=== PATIENT | male | born 1945 | race Caucasian/White ===

== ENCOUNTER 2018-09-06 21:37 | Emergency (ER) | payer MEDICARE, SELFPAY ==
[2018-09-06 21:37] VITALS: BP 157/97; PULSE 92; RESP 16; TEMP 36.6; O2SAT 99; BMI 25.1
--- NOTE | 2018-09-06 22:23 | ED.VISSUMM ---
- ER Visit Summary Date of Service: 09/06/18 Chief Complaint: Epistaxis History of Present Illness: The patient is a 73 M who presents with epistaxis that began tonight. Patient states he noted some bleeding in his posterior nasopharynx and then from his right nares. Patient states he applied pressure to his right nares and the bleeding was coming out of his left nares. Patient states the bleeding had persisted for approximately 15 to 20 minutes. Currently, patient states the bleeding has stopped. Patient states that blood pressure at home was 160/88. Patient denies any fevers or chills. Patient denies any nausea or vomiting. Patient denies any trauma or injury. Physical Examination: Vital signs are stable. Patient is afebrile. Patient is in no acute distress. Oral mucosa is pink and moist. There is some dried blood noted in the oropharynx. Nasal mucosa is pink and moist. There is dried blood noted on the anterior nasal septum bilaterally. There is no septal hematoma or septal deviation. Neck is supple. Trachea is midline. There is no JVD noted. Heart was regular rate and rhythm. Lungs are clear and equal bilaterally. Cranial nerves II through XII are intact. There are no focal motor or sensory deficits noted. Test Results: CBC was obtained and was within normal limits Emergency Department Course and Treatment: Bacitracin ointment was applied to bilateral nares. Patient was observed here in the emergency department for over 2 hours. Patient had no further episodes of epistaxis here in the emergency department. Patient was instructed to follow-up with his primary care physician in 5 to 7 days. Patient was instructed to apply pressure to his nose if epistaxis were to return. Patient understood and was agreeable with the plan. All questions were answered. Disposition: Discharge home Impression: Epistaxis This note was generated with [employer] dictation software. It may contain incorrect words, spelling, and punctuation that were not noted in review of the chart prior to signing ED Disposition - Plan for ED Patient: Disposition: Home or Assisted Living Diagnosis: Epistaxis Instructions: Nosebleed Referrals: Alexandru Cardoso MD [Primary Care Provider] - 3-5 Days
[2018-09-06 22:56] LABS: Absolute Lymphocyte Count 2.32 X10^3/ul (0.83-4.51); Absolute Neutrophil Count 4.5 X10^3/uL (2.0-7.7); Basophil# 0.03 X10^3/uL; Basophil% 0.4 % (0-1); Eosinophil# 0.23 X10^3/uL; Eosinophils% 2.9 % (0-5); Hematocrit 42.9 % (40-54); Hemoglobin 15.6 g/dl (13.0-16.5); Lymphocyte # 2.32 X10^3/ul (4.0); Lymphocyte % 29.1 % (19-41); Mean Corp Hgb Conc 36.4 g/gl (32-36); Mean Corpuscular Volume 85.1 fL (80-94); Mean Platelet Vol. 9.6 fl (6.2-12.0); Monocyte# 0.88 X10^3/uL; Neutrophil # 4.49 X10^3/uL (2.7-7.7); Neutrophil % 56.3 % (47-70); Platelet Count 314 K/mm3 (150-450); RBC Distribution Width CV 13.8 % (11.6-14.6); RBC Distribution Width SD 42.7 fl (35.1-43.9); Red Blood Count 5.04 M/mm3 (4.6-6.2)
[2018-09-06 22:58] LABS: POSITIVE COUNT NO; POSITIVE DIFFERENTIAL NO; POSITIVE MORPHOLOGY NO
[2018-09-07 00:17] VITALS: BP 122/69; PULSE 58; RESP 16; O2SAT 97
[2018-09-07] MEDS: BACITRACIN 15 GM Tube 1 APPLIC TOPICAL (00:25)
== END 2018-09-07 00:25 | disposition home or self-care (01) ==
PROVIDERS: Emergency Provider Emergency Medicine; Family Provider Family Medicine; PCP Family Medicine
DX: R04.0 Epistaxis (principal); I10 Essential (primary) hypertension; Z79.82 Long term (current) use of aspirin; Z79.899 Other long term (current) drug therapy
CPT/HCPCS: 85025; 99282; A4216

== ENCOUNTER 2019-04-18 20:10 | Emergency (ER) | payer MEDICARE, SELFPAY ==
[2019-04-18 20:11] VITALS: BP 201/93; PULSE 73; RESP 16; TEMP 37.2; O2SAT 97; BMI 25.1
[2019-04-18 20:38] VITALS: BP 191/81
--- NOTE | 2019-04-18 20:55 | CT_ITS ---
HISTORY: CASTILLO X 3 WEEKS, ELEVATED BP X WEEKS, NO MEDS TAKEN AT THIS TIME ADDITIONAL HISTORY: None provided. COMPARISON: None TECHNIQUE: Axial, coronal and sagittal CT images were obtained of the brain without intravenous contrast. Number of images including paperwork: 250. A radiation dose optimization technique was used for this scan. FINDINGS: BRAIN PARENCHYMA: No acute hemorrhage or mass. No definite acute infarct; MRI more sensitive. White matter hypodensity is nonspecific but most commonly seen with chronic ischemic changes. Generalized atrophy. EXTRA-AXIAL SPACES: No acute hemorrhage. VENTRICULAR SYSTEM: No hydrocephalus. PARANASAL SINUSES AND MASTOIDS: No air-fluid level in the imaged extent. ORBITS: Unremarkable imaged extent. SKELETON AND SOFT TISSUES: Calvarium intact. ASPECTS score: Not applicable. CT/Brain/Head without Contrast IMPRESSION: No acute intracranial abnormality. Chronic involutional and white matter changes. Individualized dose optimization techniques were used for this CT. at 2220 Reported and signed by: Nilsa Richardson MD Electronically Signed: Nilsa Richardson MD at 22:20 EST Tel , Service support ,
--- NOTE | 2019-04-18 20:55 | EKG12_ITS ---
Test Reason : HTN Blood Pressure : / mmHG Vent. Rate : 073 BPM Atrial Rate : 073 BPM P-R Int : 208 ms QRS Dur : 088 ms QT Int : 378 ms P-R-T Axes : 032 020 163 degrees QTc Int : 416 ms Normal sinus rhythm ST & T wave abnormality, consider lateral ischemia Abnormal ECG Confirmed by SANDRA PÉREZ, RUPINDER ([id number]), graphic editor YORDY GREEN ([id number]) on 04/20/2019 9:45:03 AM Referred By: SHAI Confirmed By:RUPINDER FLORES MD
--- NOTE | 2019-04-18 20:55 | RAD_ITS ---
HISTORY: HYPERTENSIONHEADACHE x3 WEEKS EXAM: XR Chest 1 View COMPARISON: June 01, 2012 FINDINGS: LINES/DEVICES: None. LUNGS: There are chronic interstitial changes. No pneumothorax. No consolidation or effusion. MEDIASTINUM AND CARDIOVASCULAR STRUCTURES: Cardiac silhouette not enlarged. Central airways and mediastinal contour are unremarkable. Athersclerotic plaque within the aortic arch. BONES AND SOFT TISSUES: Thoracic spondylosis. RAD/Chest 1 View (Portable) IMPRESSION: Chronic interestitial changes. No radiographic evidence of acute cardiopulmonary disease. at 2149 Reported and signed by: Wild Puente MD Electronically Signed: Wild Puente MD at 21:48 EST Tel , Service support ,
[2019-04-18 21:25] LABS: Absolute Neutrophil Count 4.3 X10^3/uL (2.0-7.7); Basophil# 0.06 X10^3/uL; Basophil% 0.8 % (0-1); Eosinophils% 2.8 % (0-5); Hematocrit 42.2 % (40-54); Hemoglobin 14.6 g/dL (13.0-16.5); Lymphocyte % 26.3 % (19-41); Mean Corp Hgb Conc 34.6 g/dL (32-36); Mean Corpuscular Volume 89.6 fL (80-94); Mean Platelet Vol. 9.8 fl (6.2-12.0); Monocyte# 0.77 X10^3/uL; Monocyte% 10.7 % (0-10); NRBC Flagged by Analyzer 0 % (0-5); Neutrophil # 4.28 X10^3/uL (2.7-7.7); Neutrophil % 59.1 % (47-70); Platelet Count 255 K/mm3 (150-450); RBC Distribution Width CV 12.6 % (11.6-14.6); RBC Distribution Width SD 41.4 fl (35.1-43.9); Red Blood Count 4.71 M/mm3 (4.6-6.2); White Blood Count 7.2 K/mm3 (4.4-11.0)
[2019-04-18 21:36] LABS: Anion Gap 4 (5-15); BUN 21 mg/dL (7-18); BUN/Creat Ratio 15.2 RATIO (10-20); Calcium,Total 9.6 mg/dL (8.5-10.1); Chloride 110 mmol/L (98-107); Creatinine, Serum 1.38 mg/dL (0.70-1.30); EST Glomerular Filtration Rate 53 mL/min (>60); Est Glom Filt Rate - Afr Amer 65 mL/min (>60); Estimated Creatinine Clearance 46.25 ml/min; Glucose 145 mg/dL (74-106); Sodium Level 144 mmol/L (136-145)
[2019-04-18 22:30] VITALS: BP 184/87; PULSE 57; RESP 12; O2SAT 95
[2019-04-18 22:49] VITALS: BP 184/87; PULSE 57; RESP 15; O2SAT 17
--- NOTE | 2019-04-18 22:49 | ED.VISSUMM ---
- ER Visit Summary Date of Service: 04/18/19 Chief Complaint: Headache History of Present Illness: The patient is a 74 M with a headache for several days. Diffuse pain. He noticed his blood pressure was 236/88 today. He recently stopped his blood pressure medication under the care of his doctor because he was told that it was hurting his kidneys. He has a history of hypertension, hyperlipidemia, and BPH. Physical Examination: Blood pressure is 191/81. Otherwise vitals normal. Afebrile. Alert and oriented. No acute distress. Cranial nerves grossly intact. No focal or lateralizing neurologic abnormalities grossly. Heart regular. Lungs clear. Abdomen soft. Skin normal. Test Results: EKG showed sinus rhythm at a rate of [address] and T wave changes. No sign of acute ischemia or infarction pattern. CBC unremarkable. BUN 21 and creatinine 1.38. Troponin normal. Chest x-ray normal. CT brain showed chronic changes. Emergency Department Course and Treatment: Repeat blood pressure was 184 systolic. Patient received a dose of Catapres 0.1 mg here. Will prescribe HCTZ for home daily. Follow-up with primary care for recheck. Return right away for any new or worsening symptoms. Patient was educated about stroke and other red flag features. Treatment Plan: As above Disposition: Discharge Impression: 1. Hypertension This note was generated with [employer] dictation software. It may contain incorrect words, spelling, and punctuation that were not noted in review of the chart prior to signing ED Disposition - Plan for ED Patient: Referrals: Alexandru Cardoso MD [Primary Care Provider] -
--- NOTE | 2019-04-18 22:53 | ED.DEP ---
ED Disposition - Plan for ED Patient: Instructions: HYPERTENSION, Established, Out of Control Prescriptions: Hydrochlorothiazide [Hctz] 25 mg PO DAILY #30 tab Prescription Printed Referrals: Alexandru Cardoso MD [Primary Care Provider] -
[2019-04-18] MEDS: cloNIDine HCl 0.1 MG Tablet PO (23:02)
== END 2019-04-18 23:00 | disposition home or self-care (01) ==
LOC: ED 21:19
PROVIDERS: Emergency Provider Emergency Medicine; Family Provider Family Medicine; PCP Family Medicine
DX: I10 Essential (primary) hypertension (principal); E78.5 Hyperlipidemia, unspecified; N40.0 Benign prostatic hyperplasia without lower urinary tract symptoms
CPT/HCPCS: 70450; 71045; 80048; 84484; 85025; 93005; 99285; A4216

== ENCOUNTER 2019-10-18 22:00 | Emergency (ER) | payer MEDICARE, SELFPAY ==
[2019-10-18 22:01] VITALS: BP 146/64; PULSE 54; RESP 16; TEMP 36.6; O2SAT 97; BMI 25.7
--- NOTE | 2019-10-18 22:40 | CT_ITS ---
STUDY: CT BRAIN WITHOUT CONTRAST REASON FOR EXAM: Male, 74 years old. Hit head on tractor with small laceration to top of head on the right. Questionable loss of consciousness. RADIATION DOSAGE (If Supplied By Facility): CTDIvol = ( 44.99 ) mGy, DLP = ( 796.11 ) mGycm TECHNIQUE: Transaxial CT imaging of the brain was performed without administration of intravenous contrast material. Individualized dose optimization techniques were used for this CT. COMPARISON: April 18, 2019. February 17, 2010. FINDINGS: Barely perceptible right frontal scalp swelling. Incidental subcentimeter left parietal skull exostosis unchanged since January 2010. Normal size ventricles and extra-axial spaces for the patient''s age. Normal white matter tracts of the cerebral hemispheres. Normal basal ganglia and thalami. Normal brainstem. Normal cerebellum. There is no intracranial hemorrhage. There are no findings of an acute ischemic infarction. Normal visualized paranasal sinuses. CT/Brain/Head without Contrast IMPRESSION: No acute intracranial abnormality. Electronically Signed: James Villela MD at 23:16 EDT , Service support ,
--- NOTE | 2019-10-18 22:41 | ED.VIS.INJ ---
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 He was briefly dazed but had no loss of consciousness. He has had a pretty significant headache ever since. He has taken nothing and wants nothing for that but wants to make sure he does not have any type of life-threatening injury. He also sustained a laceration that bled a lot, but bleeding has been well controlled with pressure. He has a bandage on it. Last tetanus was within the last 10 years. Denies any other injury. Denies neck or back pain. Denies neurologic symptoms in his periphery, no vision changes, no nausea or vomiting. He takes no anticoagulants. - Past Medical History (1) Hypertension Status: Chronic (2) Hyperlipidemia Status: Chronic Past Medical History - Allergies and Home Meds Allergies/Adverse Reactions: Allergies No Known Allergies Allergy (Verified 04/18/19 20:11) Primary Care Physician: Alexandru Cardoso MD [Primary Care Provider] - Lives: With Family Smoking Status: Never smoker Review of Systems General: Denies: Chills, Fever, Sweats Eyes: Denies: Visual changes - bilaterally, Diplopia ENT: Denies: Rhinorrhea, Sore throat Cardiovascular: Denies: Chest pain, Palpitations Respiratory: Denies: Dyspnea, Cough, Dyspnea on exertion Gastrointestinal: Denies: Abdominal pain, Nausea, Vomiting, Diarrhea, Melena, Hematochezia Genitourinary: Denies: Dysuria, Hematuria, Frequency Musculoskeletal: Denies: Back pain, Extremity Pain Skin: Reports: Wounds. Denies: Rash Neurological: Reports: Headache. Denies: Weakness, Numbness Physical Exam Vital Signs/Narrative: Vital Signs Temp Pulse Resp BP Pulse Ox 10/18/19 22:01 97.8 F 54 L 16 146/64 H 97 Inital Vital Signs reviewed: Yes General: Well nourished, Well developed Head: Trauma, Tenderness - Right high parietal scalp. No crepitance or depression. Tender at the area of the laceration. Eyes: Perrl, EOMI ENT: TM's clear, No hemotympanum or drainage, No trauma. Negative for: Nasal trauma Neck: Nontender, Full ROM Respiratory: No distress, Chest nontender Back: Nontender. Negative for: Spinal Tenderness Extremeties: Atraumatic x4. Full range of motion throughout. Skin: Normal color, No rash, Trauma - 1 cm curvilinear partial-thickness laceration to the right high parietal scalp. No active bleeding. Neurological: Alert, Oriented x3, Cranial nerves II-XII grossly intact, Normal Strength, Normal Sensation, Normal Gait Psychological: Normal affect, Normal Mood - Glascow Coma Scale Eye Opening: Spontaneous Motor: Obeys Commands Verbal: Oriented Coma Scale Total: 15 Diagnostic/Tx/Re-eval Clinical Impression(s) from Imaging Studies Brain CT 10/18/19 22:40 IMPRESSION: No acute intracranial abnormality. Electronically Signed: James Villela MD at 23:16 EDT , Service support , - Medical Decision Making Patient was concerned more about intracranial injury than he was his laceration. CT was performed and negative. His laceration is partial-thickness and fairly small, with minimal bleeding, I think it can be managed without suturing, but I offered suturing to the patient. He states he does not want that. Therefore we cleansed it and placed a couple of Steri-Strips across it since it was away from his hairline a little. His tetanus is within the last 10 years, I do not think that needs to be updated as this is not a high risk wound, and he can follow-up as needed. He is comfortable with this plan. ED Disposition - Plan for ED Patient: Disposition: Home or Assisted Living Diagnosis: Closed head injury without loss of consciousness, Laceration of scalp Instructions: ED Head Injury Adult, ED Laceration Small or Superficial Not Stitched Referrals: Alexandru Cardoso MD [Primary Care Provider] - As Needed
[2019-10-18 23:52] VITALS: BP 120/65; PULSE 70; RESP 18; O2SAT 98
== END 2019-10-18 23:53 | disposition home or self-care (01) ==
PROVIDERS: Emergency Provider Emergency Medicine; PCP Family Medicine
DX: S01.01XA Laceration without foreign body of scalp, initial encounter (principal); W22.8XXA Striking against or struck by other objects, initial encounter; Y93.H2 Activity, gardening and landscaping; Y92.017 Garden or yard in single-family (private) house as the place of occurrence of the external cause; I10 Essential (primary) hypertension; E78.5 Hyperlipidemia, unspecified
CPT/HCPCS: 70450; 99282

== ENCOUNTER 2020-09-29 18:53 | Emergency (ER) | payer MEDICARE, SELFPAY ==
[2020-09-29 18:53] VITALS: BP 145/79; PULSE 61; RESP 18; TEMP 36.6; O2SAT 99; BMI 26.2
--- NOTE | 2020-09-29 19:00 | RAD_ITS ---
STUDY: X-RAY - UNILATERAL RIBS ( RIGHT ) WITH CHEST REASON FOR EXAM: Male, 75 years old. pain trauma -- er waiting room TECHNIQUE - RIBS: 4 view(s) of the ribs. TECHNIQUE - CHEST: 1 view COMPARISON: Prior chest radiograph of 06/01/2012 FINDINGS - RIBS: Normal visualized ribs without a demonstrated fracture. FINDINGS - CHEST: Negative for pneumothorax. The lungs are clear and expanded. There is no demonstrated pleural abnormality. Normal size heart. Normal mediastinum and russell. Normal visualized pulmonary arteries. There is atherosclerotic tortuosity of the aortic arch and descending thoracic aorta. There are diffuse degenerative changes of the visualized thoracic spine. Normal clavicles and scapulae. RAD/Ribs Uni Min 3V w/PA Chest IMPRESSION: RIBS: Negative for acute rib fracture. CHEST: No acute cardiopulmonary findings or changes. Electronically Signed: Janell Zhu MD at 20:11 EDT , Service support ,
--- NOTE | 2020-09-29 19:55 | CT_ITS ---
STUDY: CT ABDOMEN AND PELVIS WITH CONTRAST REASON FOR EXAM: Male, 75 years old. RIGHT POSTERIOR TRAUMA -- IV PO Contrast/pain RADIATION DOSAGE (If Supplied By Facility): CTDIvol = ( 16.21 ) mGy, DLP = ( 621.06 ) mGycm TECHNIQUE: Transaxial images were obtained from the dome of the diaphragm to the symphysis pubis without oral contrast. IV 100mL Isovue-370 was administered. Sagittal and coronal images were reconstructed. Individualized dose optimization techniques were used for this CT. COMPARISON: None. FINDINGS: The visualized lung bases are unremarkable. The visualized portions of the heart are within normal limits. Multiple simple hepatic cysts. The largest is near the gallbladder fossa and measures 2.8 x 2 cm. Otherwise normal liver. Normal gallbladder and extrahepatic biliary system. Normal spleen. Normal pancreas. Normal bilateral adrenal glands. Normal right kidney. Subcentimeter cysts of the left kidney. Otherwise normal left kidney. Normal visualized stomach. Normal small intestine. Mild diverticulosis of the colon without evidence of acute diverticulitis. Otherwise normal colon. The appendix is visualized and appears normal. There is diffuse atherosclerotic calcification of the abdominal aorta, without a demonstrated aneurysm. Normal inferior vena cava. Normal retroperitoneum. Nondistended urinary bladder. Mild elevation of the bladder base by prostate enlargement. Bilateral fatty inguinal hernias, right larger than left. Mild degenerative changes of the lumbar spine. Negative for acute fracture of the lumbar spine, sacrum, pelvis or proximal femora. CT/Abdomen/Pelvis W IV Cont ONLY IMPRESSION: No acute trauma related findings. Negative for fracture of the lumbar spine, sacrum, pelvis or proximal femora. Unremarkable spleen and liver and pancreas with a nondistended gallbladder. Simple hepatic and renal cysts. No additional imaging recommendations. No acute renal findings. Unremarkable nondistended urinary bladder. Mild elevation of the bladder base by prostate enlargement. No acute bowel findings. Diverticulosis is present without acute diverticulitis. A normal appendix is identified. Mild to moderate atherosclerotic plaque of the aorta without evidence of aneurysm or dissection. Electronically Signed: Janell M. [place], MD at 22:12 EDT , Service support ,
[2020-09-29] MEDS: 0.9% Normal Saline 1,000 ML 1000 ML IV (20:06)
[2020-09-29 20:11] VITALS: PULSE 55; RESP 16; O2SAT 98
[2020-09-29 20:38] LABS: Anion Gap 4 (5-15); BUN 20 mg/dL (7-18); BUN/Creat Ratio 16.1 RATIO (10-20); Chloride 105 mmol/L (98-107); Creatinine, Serum 1.24 mg/dL (0.70-1.30); EST Glomerular Filtration Rate 60 mL/min (>60); Est Glom Filt Rate - Afr Amer 73 mL/min (>60); Estimated Creatinine Clearance 49.03 ml/min; Glucose 108 mg/dL (74-106); Potassium 3.5 mmol/L (3.5-5.1); Sodium Level 140 mmol/L (136-145)
--- NOTE | 2020-09-29 21:46 | EDS_ITS ---
HPI History of Present Illness Chief Complaint: Other, Pain/Inj Informant: patient and family Narrative Narrative: 75-year-old male states that earlier today a horse pushed him up against the stall. He notes injury to the right posterior lower ribs. He went to urgent care and they were concerned about multiple rib fractures. They sent him to emergency department. He states that they did check his urine which did not show any hematuria. Patient denies any cough or shortness of breath. No hemoptysis. Painful range of motion. He does not wish to have any pain medication even Tylenol. [facility] Medical History High cholesterol HTN (hypertension) Home Medications finasteride 5 mg PO DAILY 04/18/19 [History Last Taken Unknown] losartan 25 mg PO DAILY 10/18/19 [History Last Taken Unknown] nifedipine 60 mg PO DAILY 09/29/20 [History Last Taken Unknown] pravastatin 40 mg PO QHS 09/29/20 [History Last Taken Unknown] Allergy/AdvReac Type Severity Reaction Status Date / Time No Known Allergies Allergy Verified 09/29/20 18:55 Social History (Updated 09/29/20 @ 21:[address] Jay Eldridge DO) Smoking Status: Never smoker substance use type: does not use ROS ROS ED Constitutional Constitutional ED: Denies chills or weight loss Eyes Eyes: Denies change in vision or diplopia ENT ENT ED: Denies ear pain, rhinorrhea or sore throat Cardiovascular Cardiovascular: Denies chest pain, orthopnea, palpitations or racing heartbeat Respiratory/Chest Respiratory/Chest: Reports other Details: Right posterior lower rib pain ; Denies cough, dyspnea or orthopnea Gastrointestinal Gastrointestinal: Denies abdominal pain, diarrhea, nausea or vomiting Genitourinary Genitourinary ED: Denies dysuria, hematuria or urinary frequency Musculoskeletal Musculoskeletal: Denies arthralgias or myalgias Integumentary Denies abscess or rash Neurologic Neurologic: Denies headache(s) or weakness Psychiatric Psychiatric: Denies anxiety, depression, suicidal ideation or suicidal thoughts Endocrine Endocrinology: Denies polydipsia, polyphagia or polyuria Allergic/Immunologic Allergic/Immunologic ED: Denies mouth swelling, tongue swelling or urticaria EXAM Physical Exam Const Vital Signs: 09/29/20 18:53 09/29/20 20:10 09/29/20 20:11 Temperature 97.9 F Temperature Source Temporal Pulse Rate 61 55 L Respiratory Rate 18 16 Respiratory Effort Normal Non-Labored Respiratory Pattern Normal Blood Pressure 145/79 H Blood Pressure Mean 101 Pulse Ox 99 98 Oxygen Delivery Method Room Air Room Air Positive well nourished and well developed General Appearance ED: well developed HEENT Reports normocephalic, head/scalp atraumatic and moist mucous membranes Eyes PERRL and EOMs intact bilaterally Neck no lymphadenopathy, supple and no JVD Chest Wall Chest Narrative: Patient has tenderness to palpation over the lower posterior right ribs. No palpable deformities. No crepitance. No ecchymosis seen. Resp normal respiratory effort and clear to auscultation bilaterally Cardio regular rate, regular rhythm and no murmurs GI normal to inspection, nondistended, normoactive bowel sounds and non-tender Palpation: soft Back/Spine no CVA tenderness and normal ROM Extremity normal to inspection General Extremety ED: Negative for edema General Extremity: Negative for edema Neuro oriented x3 and CN's II-XII intact bilaterally Sensorium / Orientation: alert Motor Exam: strength 5/5 throughout Psych mental status grossly normal Mood & Affect: Negative for depressed or tearful Skin no rashes or lesions noted and no wounds MDM MDM MDM Narrative Medical decision making narrative: Rib series was ordered through nursing protocol. However given the location of his pain overlying the right kidney area I felt it prudent that we CT it. BMP was obtained to evaluate his creatinine with a history of stage III kidney disease. This was normal. Therefore CT of the abdomen pelvis with IV contrast was obtained. This does not demonstrate any liver or renal pathology. No obvious rib fractures were seen. No pneumothorax or hemothorax seen. Patient was discharged home with supportive care return if worsening or concerns Lab Data Attestation: I reviewed the patient's lab results. Labs: Laboratory Results - last 24 hr 09/29/20 20:05 Sodium 140 Potassium 3.5 Chloride 105 Carbon Dioxide 31.0 Anion Gap 4 L BUN 20 H Creatinine 1.24 Estim Creat Clear Calc 49.03 Est GFR (MDRD) Af Amer 73 Est GFR (MDRD) Non-Af 60 BUN/Creatinine Ratio 16.1 Glucose 108 H Calcium 10.0 Radiography Diagnostic Testing: Radiology Impression Ribs w/Chest X-Ray 09/29/20 19:00 IMPRESSION: RIBS: Negative for acute rib fracture. CHEST: No acute cardiopulmonary findings or changes. Electronically Signed: Janell Zhu MD at 20:11 EDT , Service support , Abdomen/Pelvis CT 09/29/20 19:55 IMPRESSION: No acute trauma related findings. Negative for fracture of the lumbar spine, sacrum, pelvis or proximal femora. Unremarkable spleen and liver and pancreas with a nondistended gallbladder. Simple hepatic and renal cysts. No additional imaging recommendations. No acute renal findings. Unremarkable nondistended urinary bladder. Mild elevation of the bladder base by prostate enlargement. No acute bowel findings. Diverticulosis is present without acute diverticulitis. A normal appendix is identified. Mild to moderate atherosclerotic plaque of the aorta without evidence of aneurysm or dissection. Electronically Signed: Janell Zhu MD at 22:12 EDT , Service support , Discharge Plan Triage Chief Complaint: Other, Pain/Inj ED Provider: Jay Eldridge Dx/Rx/DC Orders Clinical Impression: Contusion of rib on right side Instructions: ED Contusion, Rib Prescriptions: No Action finasteride 5 MG tablet 5 mg PO DAILY RF: 0 losartan 25 MG tablet 25 mg PO DAILY RF: 0 pravastatin 40 mg Tablet 40 mg PO QHS RF: 0 nifedipine 60 mg Tablet Extended Release 60 mg PO DAILY RF: 0 Primary Care Provider: Alexandru Cardoso Referrals: Alexandru Cardoso MD [Primary Care Provider] - As Needed Disposition Disposition: Home, self care
== END 2020-09-29 22:22 | disposition home or self-care (01) ==
PROVIDERS: Emergency Provider Emergency Medicine; PCP Family Medicine
DX: S20.211A Contusion of right front wall of thorax, initial encounter (principal); I10 Essential (primary) hypertension; E78.00 Pure hypercholesterolemia, unspecified; Z79.899 Other long term (current) drug therapy; W55.12XA Struck by horse, initial encounter
CPT/HCPCS: 71101; 74177; 80048; 96360; 96361; 99283; J7030; Q9967; A4216

== ENCOUNTER 2021-10-26 10:55 | Emergency (ER) | payer MEDICARE, SELFPAY ==
[2021-10-26 10:56] VITALS: BP 137/66; PULSE 67; RESP 16; TEMP 37.1; O2SAT 98; BMI 25.8
--- NOTE | 2021-10-26 12:09 | CT_ITS ---
STUDY: CT CHEST, ABDOMEN T PELVIS WITH CONTRAST REASON FOR EXAM: Male, 76 years old. Back pain. Patient stepped on by a horse. RADIATION DOSAGE (If Supplied By Facility): CTDIvol = ( 15.06 ) mGy, DLP = ( 1404.07 ) mGycm TECHNIQUE: Transaxial imaging was performed following intravenous administration of Oral and amp; IV and amp; 100mL Isovue-300. Individualized dose optimization techniques were used for this CT. COMPARISON: No relevant priors. FINDINGS: CHEST Mild degree of increased linear markings at the lung bases suggestive of a linear atelectasis. There is no demonstrated pleural abnormality. There are calcifications of the coronary arteries. Normal mediastinum. Normal hilar regions. Normal unenhanced pulmonary arteries. There is atherosclerotic calcification of the aortic arch. There are multi-level degenerative changes of the thoracic spine. 1 cm cyst in the anterior aspect of the left lobe of the liver. 1.5 cm cyst in the anterior medial portion of the right lobe of the liver. ABDOMEN The visualized lung bases are unremarkable. The visualized portions of the heart are within normal limits. Normal liver. Normal gallbladder and extrahepatic biliary system. Normal spleen. Normal pancreas. Normal bilateral adrenal glands. Normal right kidney. 1 cm cyst in the lower pole of the left kidney Normal visualized stomach. Normal small intestine. Normal colon. The appendix is visualized and appears normal. There is scattered atherosclerotic calcification of the abdominal aorta, without a demonstrated aneurysm. Normal inferior vena cava. Normal retroperitoneum. Small bilateral nodular areas containing fat is more prominent on the right side. There are mild degenerative changes of the visualized lumbar spine. PELVIS Distended urinary bladder. The prostate measures 4.5 cm x 5.4 cm. There is no pelvic fluid. There is no pelvic lymphadenopathy or mass lesion. There is diffuse atherosclerotic calcification of the pelvic arteries. CT/CT Chest, Abd, Pel w/Contrast IMPRESSION: Prostatic enlargement. Distended urinary bladder. Small hepatic cysts. Electronically Signed: Justin Britt MD at 13:30 EDT ,
--- NOTE | 2021-10-26 12:11 | EDS_ITS ---
HPI <JAMIE Gamez - Last Filed: 10/26/21 13:56> History of Present Illness Chief Complaint: Back Narrative Narrative: 76-year-old male with history of hypertension hyperlipidemia presents to the emergency department with complaints of back pain, left-sided rib pain, abdominal pain after being trampled on by a horse. 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 This happened 2 days ago, patient denies any head or neck injury. Patient has multiple abrasions to his forearms. Patient does have worsening pain to his lower back, left posterior ribs, intermittent abdominal discomfort. Patient is concerned that he hurt his insides. Denies any LOC. Patient is currently not on any blood thinning medicine. PFSH <JAMIE Gamez - Last Filed: 10/26/21 13:56> [facility] Medical History (Updated 10/26/21 @ 13:54 by JAMIE Gamez) Chronic kidney disease, stage 3 High cholesterol HTN (hypertension) Osteoarthritis Parkinsonian features Home Medications finasteride 5 mg tablet 5 mg PO DAILY 04/18/19 [History Last Taken Unknown] losartan 25 mg tablet 25 mg PO DAILY 10/18/19 [History Last Taken Unknown] nifedipine 60 mg tablet,extended release 60 mg PO DAILY 09/29/20 [History Last Taken Unknown] pravastatin 40 mg tablet 40 mg PO QHS 09/29/20 [History Last Taken Unknown] hydrocodone-acetaminophen 5-325mg 5mg-325mg 1 tab PO Q6H PRN pain 3 days #10 tabs 10/26/21 [Rx Last Taken Unknown] Allergy/AdvReac Type Severity Reaction Status Date / Time No Known Allergies Allergy Verified 10/26/21 10:58 Surgical History (Updated 10/26/21 @ 11:10 by Richard Herbert RN) History of surgery of liver Social History (Updated 09/29/20 @ 21:[address] Jay Eldridge DO) Smoking Status: Never smoker substance use type: does not use ROS <JAMIE Gamez - Last Filed: 10/26/21 13:56> ROS ED ROS Narrative Constitutional: Negative for fever, chills, weight loss, weakness Eyes: Negative for vision loss, vision change, double vision ENT: Negative for any sore throat, ear pain, congestion Cardiovascular: Negative for any chest pain, tightness, palpitations Respiratory: Negative for any cough, sputum production, hemoptysis, dyspnea, dyspnea on exertion, orthopnea Gastrointestinal: Negative for any nausea, vomiting, diarrhea, constipation, blood in stool, blood in vomit. Positive for left-sided abdominal pain : Negative for any urinary frequency, dysuria, retention, blood in urine Muscle skeletal: Negative for any muscle joint pain, stiffness, myalgias, arthralgias, neck pain. Positive for lower back pain Neurological: Negative for any headache, syncope, numbness or tingling, dizziness Skin: Negative for any rashes, lumps, itching, lacerations. Multiple abrasions to forearms Psychiatric: Negative for any depression, anxiety, stress, suicidal ideation, homicidal ideation Hematologic: Negative for any easy bruising, excessive bruising, easy bleeding Allergies: Negative for any eczema, hives, rash EXAM <JAMIE Gamez - Last Filed: 10/26/21 13:56> Physical Exam Narrative Exam Narrative: Vital signs reviewed. Patient appears well, patient appears nontoxic. HEET: Head normocephalic atraumatic, TMs clear bilaterally. Posterior pharynx is clear, moist mucous membranes. Nares clear bilaterally. Pupils equal round reactive light, negative for any hematoma, septal hematoma Neck: Supple with no lymphadenopathy or tenderness. No signs of meningismus, negative jolt sign. Cardiac: Regular rate and rhythm no murmurs gallops or rubs, equal peripheral pulses bilaterally. Respiratory: Lungs clear to auscultation bilaterally. Left-sided chest wall tenderness on the lateral posterior aspect. Abdomen: Soft, nontender, nondistended. No abdominal bruit or pulsatile masses. No hepatosplenomegaly Extremities: No peripheral edema, no signs of gross trauma or deformity. Active full range of motion of all extremities. Abrasions to bilateral forearms Neuro: Cranial nerves II through XII intact, no focal neurological deficits. Skin: Clean dry and intact with no rash, purpura, petechiae, vesicles or pustules. Backs/flank: No CVA tenderness, no midline spinal tenderness, no deformity. Patient does have pain on palpation to the left lower lumbar spine as well as the left posterior ribs. Negative for any crepitus, ecchymosis. Psych: Normal mood and affect. No SI, HI or acute psychosis. Const Vital Signs: 10/26/21 10:56 Temperature 98.7 F Temperature Source Temporal Pulse Rate 67 Respiratory Rate 16 Blood Pressure 137/66 H Blood Pressure Mean 89 Pulse Ox 98 Oxygen Delivery Method Room Air Positive well nourished and well developed General Appearance ED: well developed <Dr. Reji Jeong MD - Last Filed: 10/26/21 15:36> Physical Exam Const Vital Signs: 10/26/21 10:56 Temperature 98.7 F Temperature Source Temporal Pulse Rate 67 Respiratory Rate 16 Blood Pressure 137/66 H Blood Pressure Mean 89 Pulse Ox 98 Oxygen Delivery Method Room Air MDM <JAMIE Gamez - Last Filed: 10/26/21 13:56> MDM Lab Data Labs: Laboratory Results - last 24 hr 10/26/21 10/26/21 12:20 12:20 WBC 11.1 H RBC 4.60 Hgb 14.5 Hct 41.3 MCV 89.8 MCH 31.5 MCHC 35.1 RDW Std Deviation 43.1 RDW Coeff of [place] 13.1 Plt Count 259 MPV 9.3 Immature Gran % (Auto) 0.400 Neut % (Auto) 73.3 H Lymph % (Auto) 14.0 L Frontier % (Auto) 11.7 H Eos % (Auto) 0.4 Baso % (Auto) 0.2 Absolute Neuts (auto) 8.2 H Absolute Lymphs (auto) 1.56 Nucleated RBC % 0 Sodium 138 Potassium 3.7 Chloride 106 Carbon Dioxide 29.0 Anion Gap 3 L BUN 17 Creatinine 1.14 Estim Creat Clear Calc 52.50 Est GFR (MDRD) Af Amer 80 Est GFR (MDRD) Non-Af 66 BUN/Creatinine Ratio 14.9 Glucose 125 H Calcium 9.9 Radiography Diagnostic Testing: Clinical Impression(s) from Imaging Studies Chest/Abdomen/Pelvis CT 10/26/21 12:09 IMPRESSION: Prostatic enlargement. Distended urinary bladder. Small hepatic cysts. Electronically Signed: Justin Britt MD at 13:30 EDT , Treatment and Re-Evaluation Narrative: Patient appears well, patient appears nontoxic, vital signs are stable. Patient presents to the emergency department after being trampled on by a horse 2 days ago complaining of pain to his left lower back, left ribs. Patient physical examination was unremarkable, negative for any obvious signs of trauma. Patient did receive a CT scan of the chest abdomen pelvis, this showed prostatic enlargement, distended urinary bladder, and small hepatic cyst. Negative for any internal bleeding, trauma. Patient was given Tylenol here with positive results. Patient instructed to follow-up with his PCP. He will be given [place] for his pain and instructed return for any worsening symptoms. Patient agreed with the plan and is stable for discharge. <Dr. Reji Jeong MD - Last Filed: 10/26/21 15:36> [facility] Narrative Medical decision making narrative: I have personally performed a face to face assessment of the patient and have reviewed the JACQUELYN Note. I performed a substantive portion of the visit including all aspects of the following. My yuen findings include: History is patient asked Jesús got under horse that he was breathing. He got stepped on or somehow pressed. The horse was at 1000 pounds. He has soreness kind of on his left flank. But he has no trouble breathing. He has been urinating normally. No blood in the urine. Eating and drinking. No numbness tingling or weakness. His pain is a lot worse with moving positions. He is not on any anticoagulation. Exam is nontoxic. He is awake alert appropriate and joking. I do not see any external bruising or abrasions on him. He has abrasions on his hands from holding the rains of the horse but his hands do not hurt. There is no abrasion on his back or flank. Abdomen is nondistended and nontender. No numbness tingling distally. Medical Decison Making blood work will be done. CT scan of chest abdomen pelvis will be done due to the potential for injury with the large animals involved. As long as this shows no acute process I think he can go home. Lab Data Labs: Laboratory Results - last 24 hr 10/26/21 10/26/21 12:20 12:20 WBC 11.1 H RBC 4.60 Hgb 14.5 Hct 41.3 MCV 89.8 MCH 31.5 MCHC 35.1 RDW Std Deviation 43.1 RDW Coeff of [place] 13.1 Plt Count 259 MPV 9.3 Immature Gran % (Auto) 0.400 Neut % (Auto) 73.3 H Lymph % (Auto) 14.0 L Frontier % (Auto) 11.7 H Eos % (Auto) 0.4 Baso % (Auto) 0.2 Absolute Neuts (auto) 8.2 H Absolute Lymphs (auto) 1.56 Nucleated RBC % 0 Sodium 138 Potassium 3.7 Chloride 106 Carbon Dioxide 29.0 Anion Gap 3 L BUN 17 Creatinine 1.14 Estim Creat Clear Calc 52.50 Est GFR (MDRD) Af Amer 80 Est GFR (MDRD) Non-Af 66 BUN/Creatinine Ratio 14.9 Glucose 125 H Calcium 9.9 Radiography Diagnostic Testing: Clinical Impression(s) from Imaging Studies Chest/Abdomen/Pelvis CT 10/26/21 12:09 IMPRESSION: Prostatic enlargement. Distended urinary bladder. Small hepatic cysts. Electronically Signed: Justin Britt MD at 13:30 EDT , Discharge Plan Triage Chief Complaint: Back ED Midlevel Provider: Rustam Roman ED Provider: Reji Jeong Dx/Rx/DC Orders Clinical Impression: Lumbar contusion, Contusion of rib on left side, Abdominal wall contusion Instructions: Bruises (Contusions), ED Back Contusion Prescriptions: New hydrocodone-acetaminophen 5-325 mg tablet 1 tab PO Q6H PRN (Reason: pain) 3 Days Qty: 10 0RF No Action finasteride 5 MG tablet 5 mg PO DAILY Label Comments: TAKE 1 TABLET BY MOUTH ONCE DAILY FOR PROSTATE ENLARGEMENT losartan 25 MG tablet 25 mg PO DAILY pravastatin 40 mg Tablet 40 mg PO QHS nifedipine 60 mg Tablet Extended Release 60 mg PO DAILY Primary Care Provider: Alexandru Cardoso Referrals: Alexandru Cardoso MD [Primary Care Provider] - Activity Restrictions/Additional Instructions: Please follow-up with your PCP Print Language: Mongolian Disposition Disposition: Home, Self Care Discharge Date/Time: 10/26/21 14:13
[2021-10-26] MEDS: Acetaminophen 500 MG Tablet 1000 MG PO (12:26)
[2021-10-26 12:27] LABS: Absolute Lymphocyte Count 1.56 X10^3/uL (0.83-4.51); Absolute Neutrophil Count 8.2 X10^3/uL (2.0-7.7); Basophil# 0.02 X10^3/uL; Basophil% 0.2 % (0-1); Eosinophil# 0.04 X10^3/uL; Eosinophils% 0.4 % (0-5); Hematocrit 41.3 % (40-54); Hemoglobin 14.5 g/dL (13.0-16.5); Lymphocyte # 1.56 X10^3/ul (0.83-4.51); Mean Corp Hgb Conc 35.1 g/dL (32-36); Mean Corpuscular Hgb 31.5 pg (27.0-32.0); Mean Corpuscular Volume 89.8 fL (80-94); Mean Platelet Vol. 9.3 fl (6.2-12.0); Monocyte% 11.7 % (0-10); NRBC Flagged by Analyzer 0 % (0-5); Neutrophil # 8.15 X10^3/uL (2.7-7.7); Neutrophil % 73.3 % (47-70); Platelet Count 259 K/mm3 (150-450); RBC Distribution Width CV 13.1 % (11.6-14.6); RBC Distribution Width SD 43.1 fl (35.1-43.9); White Blood Count 11.1 K/mm3 (4.4-11.0)
[2021-10-26 12:43] LABS: Anion Gap 3 (5-15); BUN 17 mg/dL (7-18); BUN/Creat Ratio 14.9 RATIO (10-20); Calcium,Total 9.9 mg/dL (8.5-10.1); Chloride 106 mmol/L (98-107); Creatinine, Serum 1.14 mg/dL (0.70-1.30); EST Glomerular Filtration Rate 66 mL/min (>60); Est Glom Filt Rate - Afr Amer 80 mL/min (>60); Glucose 125 mg/dL (74-106); Potassium 3.7 mmol/L (3.5-5.1); Sodium Level 138 mmol/L (136-145)
== END 2021-10-26 14:13 | disposition home or self-care (01) ==
PROVIDERS: Nurse Practitioner; Emergency Provider Emergency Medicine; PCP Family Medicine; Visit Provider Emergency Medicine
DX: S30.0XXA Contusion of lower back and pelvis, initial encounter (principal); N18.30 Chronic kidney disease, stage 3 unspecified; I12.9 Hypertensive chronic kidney disease with stage 1 through stage 4 chronic kidney disease, or unspecified chronic kidney disease; S20.212A Contusion of left front wall of thorax, initial encounter; S30.1XXA Contusion of abdominal wall, initial encounter; W55.89XA Other contact with other mammals, initial encounter; Y93.89 Activity, other specified; E78.00 Pure hypercholesterolemia, unspecified; Z79.899 Other long term (current) drug therapy
CPT/HCPCS: 71260; 74177; 80048; 85025; 99283; Q9967; A4216

== ENCOUNTER → 2023-12-16 | Outpatient (CLI) | payer MEDICARE, SELFPAY ==
--- NOTE | 2023-12-16 13:00 | PROSBIL_PTH ---
PATIENT: MATTHEW ODONNELL LOC: [facility] U#:[id number] AGE/SX: 78/M ROOM: RE12/16/[address]: Dr. Sarbjit Jacobo MD : 1945 BED: DIS: 12/16/2023 SPEC #: [id number] RECD: 12/17/23 11:57 STATUS: CHAY RETom #: [id number] MEKA: 12/16/23 13:[address]: Sarbjit Jacobo DEPT: SURGICAL PATHOLOGY RECD BY: Michelle Mg ENTERED: 12/17/23 11:57 SP TYPE: PROST BX DARIO DR: Dr. Alexandru Cardoso MD Tissues: A - PROSTATE RIGHT B - PROSTATE RIGHT C - PROSTATE RIGHT D - PROSTATE LEFT E - PROSTATE LEFT F - PROSTATE LEFT Procedures: PROSTATE BX HEADER OPERATION: Prostate biopsy PRE-OP DIAGNOSIS: Elevated PSA TISSUE SUBMITTED: A - Right apex, B - Right mid, C - Right base, D - Left apex, E - Left mid, F - Left base MICROSCOPIC DIAGNOSIS A. Right prostate, apex, core biopsy: Mild chronic inflammation. B. Right prostate, mid, core biopsy: Adenocarcinoma. [employer] grade: 3+4 (7) Cores involved: 1/1 Tissue involved: 20% Greatest tumor length: 2.0 millimeters C. Right prostate, base, core biopsy: Minimal chronic inflammation. D. Left prostate, apex, core biopsy: Adenocarcinoma. [employer] grade: 3+4 (7) Cores involved: / Tissue involved: 95% Perineural invasion: Present Greatest tumor length: 10.0millimeters E. Left prostate, mid, core biopsy: Adenocarcinoma. [employer] grade: 7 (3+4) Cores involved: / Tissue involved: 95% Perineural invasion: Present Greatest tumor length: 10.5 millimeters F. Left prostate, base, core biopsy: Adenocarcinoma. Lily grade: 3+4 (7) Cores involved: 04/21 Tissue involved: 85% Perineural invasion: Present Greatest tumor length: 10.5 millimeters AM 12/18/2023 COMMENT Case has been reviewed in consultation with Dr. Smith who concurs with the above diagnosis. IDC:[id number] MICROSCOPIC DESCRIPTION Slides are reviewed. GROSS DESCRIPTION A - Received is one container designated prostate, right apex. The specimen consists of one elongated fragments of light sanders-white soft tissue measuring 1.2 cm in length and 0.1 cm in diameter. The specimen is totally submitted in one cassette. B - Received is one container designated prostate, right mid. The specimen consists of one elongated fragments of light sanders-white soft tissue measuring 1.5 cm in length and 0.1 cm in diameter. The specimen is totally submitted in one cassette. C - Received is one container designated prostate, right base. The specimen consists of one elongated fragments of light sanders-white soft tissue measuring 1.5 cm in length and 0.1 cm in diameter. The specimen is totally submitted in one cassette. D - Received is one container designated prostate, left apex. The specimen consists of one elongated fragments of light sanders-white soft tissue measuring 1.3 cm in length and 0.1 cm in diameter. The specimen is totally submitted in one cassette. E - Received is one container designated prostate, left mid. The specimen consists of one elongated fragments of light sanders-white soft tissue measuring 1.1 cm in length and 0.1 cm in diameter. The specimen is totally submitted in one cassette. F - Received is one container designated prostate, left base. The specimen consists of one elongated fragments of light sanders-white soft tissue measuring 1.3 cm in length and 0.1 cm in diameter. The specimen is totally submitted in one cassette. / 12/17/2023 TC:0 CPT: G0146 ADDENDUM ADDENDUM ADDENDUM ADDENDUM ADDENDUM ADDENDUM ADDENDUM ADDENDUM ADDENDUM ADDENDUM ADDENDUM ADDENDUM 04/08/2024 08:45 ADDENDUM 04/08/2024 08:45 ADDENDUM 04/08/2024 08:45 ADDENDUM 04/08/2024 08:45 ADDENDUM 04/08/2024 08:45 This addendum is added to incorporate an outside pathology consultation report. The case was examined at [facility] (#[id number]) and the following diagnosis was rendered. TEST NOT PERFORMED: The specimen used for testing failed laboratory quality control assessor requirements of quantity and/or quality of nuclei acids. Contributing factors may include the volume of evaluable tumor tissue and specimen fixation and/or processing. Please see complete above mentioned consultation report in EMR
== END | disposition home or self-care (01) ==
LOC: LABSPEC 16:08
PROVIDERS: PCP Family Medicine; Referring Provider Urology; Visit Provider Urology
DX: C61 Malignant neoplasm of prostate (principal)
CPT/HCPCS: 88305; G0416

== ENCOUNTER → 2024-02-16 | Outpatient (CLI) | payer MEDICARE, SELFPAY ==
--- NOTE | 2024-02-16 08:03 | MRI_ITS ---
prostate STUDY: MR PROSTATE GLAND/ PELVIS WITH T WITHOUT CONTRAST REASON FOR EXAM: Male, 79 years old. PROSTATE CANCER, +BIOPSY intermediate risk prostate cancer -- eval disease extent TECHNIQUE: Standardized fat and water weighted pulse sequences were obtained in all 3 orthogonal planes, pre-and post contrast administration. IV 15CC CLARISCAN was administered for the contrast portion of the examination. COMPARISON: CT of abdomen and pelvis dated October 26, 2021. FINDINGS: Prostate gland volume/size: 4.93 x 5.7 x 4.36 cm which is mildly enlarged. Anterior fibromuscular stroma: Normal. Peripheral zone: Abnormal intermediate to low signal parenchyma throughout the bilateral peripheral zones. Small round nodule in the posterior medial aspect and left side of the prostate gland measuring 1.05 cm demonstrating dark ADC signal and mixed bright and dark diffusion weighted signal is of concern see image #17/31 series 8. On the postcontrast study there is peripheral enhancement of this nodule is seen on image 16/31 series 10 a malignant neoplasm with surrounding fibrosis is of primary concern. Central zone: Diffuse hyperplastic, nodular, heterogeneous and diffusely enhancing tissue is present on the right and left. Chronic prostatitis and BPH are present. Transitional zone: Diffuse hyperplastic, nodular, heterogeneous and diffusely enhancing tissue is present on the right and left. Chronic prostatitis and BPH are present. Prostate capsule: Intact Seminal vesicles: Markedly hypoplastic with only a few small fluid distended seminal vesicles present Pelvic sidewall lymphadenopathy: No abnormally enlarged or increase in number or abnormally enhancing lymph nodes of the pelvis are present. Bony structures: No marrow edema or lytic or blastic lesions or abnormally enhancing lesions of the bony structures on the current study. Bladder: Mild bladder wall thickening and trabeculation. No bladder masses or stones are present. Normal visualized small intestine. Normal visualized colon. There is no pelvic fluid. There is no pelvic mass lesion or lymphadenopathy. Small to moderate-sized fat-containing right inguinal hernia measures 3.62 cm in diameter MRI/Pelvis W/WO Contrast IMPRESSION: 1. Peripheral zone: Abnormal intermediate to low signal parenchyma throughout the bilateral peripheral zones. Small round nodule in the posterior medial aspect and left side of the prostate gland measuring 1.05 cm demonstrating dark ADC signal and mixed bright and dark diffusion weighted signal is of concern see image #17/31 series 8. On the postcontrast study there is peripheral enhancement of this nodule is seen on image 16/31 series 10 a malignant neoplasm with surrounding fibrosis is of primary concern. 2. Correlate with PSA and clinical symptomology as diffuse hyperplastic tissue may obscure a small neoplasm in falsely suppress the associated signal. 3. Correlation with prostate PET/CT can also be performed to determine if there is any viable malignant neoplasm in the prostate gland not seen by MRI. 4. PI-RADS 4: high (clinically significant cancer is likely to be present) 5. Continued expected management by urology/oncology recommended. Reference information: Normal prostate tissue Benign prostatic hypertrophy cancer/tumor - low signal peripheral , transitional, and central zones malignancy appears as bright on DWI and low signal on ADC map Prostate imaging-reporting and data system (PI-RADS) PI-RADS 1: very low (clinically significant cancer is highly unlikely to be present) PI-RADS 2: low (clinically significant cancer is unlikely to be present) PI-RADS 3: intermediate (the presence of clinically significant cancer is equivocal) PI-RADS 4: high (clinically significant cancer is likely to be present) PI-RADS 5: very high (clinically significant cancer is highly likely to be present) PI-RADS X: component of exam technically inadequate or not performed Prostate malignancy distribution: Peripheral zone: 70-80% Transitional zone: 10-20% Central zone: 5% or less Electronically Signed: Leonardo Leonard MD at 10:07 EDT ,
--- OUTSIDE RECORDS SUMMARY | 2024-02-16 08:24 | XMS RPT_ITS | CCD ---
Author Organization [facility] Care Team Providers Care Artificial Inseminator Name Role Phone Zoran Arceo Unavailable Unavailable Zoran Arceo Unavailable Unavailable Tejas Yeh Unavailable Unavailable Zoran Arceo Unavailable Unavailable Zoran Arceo Unavailable Unavailable Unavailable Zoran Arceo Unavailable [phone] Sawyer Zarco Unavailable Unavailable Zoran Arceo MD Primary Care Provider [phone] Zoran Arceo Primary Care Unavailable Zoran Arceo Attending Unavailable Zoran Arceo Referring Unavailable ArceoZoran grewal Referring Unavailable Yovani Spears Attending Unavailable ArceoDinher [facility] Unavailable Yovani Spears Attending Unavailable Yovani Spears Referring Unavailable ArceoZoran Primary Care Unavailable ArceoZoran Referring Unavailable Arceo Zoran [facility] Unavailable Zoran Arceo Attending Unavailable Bob, MsRajan Young Attending Unavailmaine Rojas, Ms. Katie Young Referring Unavailabl e ArceoDinh stewarter [facility] Unavailable ArceoZoran stewart Referring Unavailable Arceo Z[facility]an [facility] Unavailable Zoran Arceo Attending Unavailable Zoran Arceo Referring Unavailable ArceoZoran grewal Primary Care Unavailable ArceoZoran stewart Attending Unavailable ArceoZoran stewart Primary Care Unavailable Zoran Arceo Attending Unavailable Zoran Arceo Referring Unavailable Zoran Arceo MD Primary Care Provider Zoran Arceo MD Unavailable Walker, Dr. Zoran Hermosillo Attending Unavailab le Walker, Dr. Zoran Hermoisllo Primary Care Unavailab ZORAN Mcdonald Referring Unavailable ZORAN ARCEO Primary Care Unavailable Zoran Arceo MD Primary Care Provider ZORAN ARCEO Primary Care Unavailable CHRISTI SHAIKH Attending Unavailable DENVER CHO Referring Unavailable ZORAN ARCEO Primary Care Unavailable DENVER CHO Attending Unavailable ZORAN ARCEO Primary Care Unavailable TRENT DEGROOT Attending Unavailable TRENT DEGROOT Attending Unavailable ZORAN ARCEO Primary Care Unavailable SELF Referring Unavailable ZORAN ARCEO Attending Unavailable ZORAN ARCEO Referring Unavailable ZORAN ARCEO Primary Care Unavailable ZORAN ARCEO Attending Unavailable ZORAN ARCEO Primary Care Unavailable ZORAN ARCEO Attending Unavailable ZORAN ARCEO Primary Care Unavailable ZORAN ARCEO Attending Unavailable ZORAN ARCEO Referring Unavailable ZORAN ARCEO Primary Care Unavailable ZORAN ARCEO Attending Unavailable ZORAN ARCEO Referring Unavailable ZORAN ARCEO Primary Care Unavailable ZORAN ARCEO Primary Care Unavailable ZORAN ARCEO Primary Care Unavailable ZORAN ARCEO Primary Care Unavailable ZORAN ARCEO Primary Care Unavailable ZORAN ARCEO Primary Care Unavailable ZORAN ARCEO Primary Care Unavailable Medications Current Medications Medication Drug Class(es) Dates Sig (Normalized) Sig (Original) acetaminophen 325 mg oral tablet (5 sources) Start: 03-20-2015 take 1 tablet by mouth every six hours as needed acetaminophen (Tylenol) 325 mg tablet Take 1 tablet (325 mg) by mouth every 6 hours if needed. 03/20/2015 Active aspirin 81 mg delayed release oral tablet (1 source) Platelet Aggregation Inhibitor, Nonsteroidal Anti-inflammatory Drug Start: 03-20-2015 End: 05-13-2023 take 1 tablet by mouth once daily aspirin 81 mg EC tablet Take 1 tablet (81 mg) by mouth once daily. 0 03/20/2015 05/13/2023 Discontinued (Therapy completed) bifidobacterium animalis [id number] unt / lactobacillus acidophilus [id number] unt oral capsule (11 sources) Start: 12-10-2021 take 1 capsule by mouth every other day L. acidophilus/Bifid. animalis 32 billion cell capsule Take 1 capsule by mouth every other day. 12/10/2021 Active Start: 12-10-2021 take 1 capsule by mo [facility] once daily L. acidophilus/Bifid. animalis 32 billion cell capsule Take 1 capsule by mouth once daily. 12/10/2021 Active Start: 12-10-2021 Probiotic Blen d Oral Capsule USE DIRECTED. Quantity: 0 Refills: 0 Ordered: 10-Dec-2021 Zoran Arceo MD Start : 10-Dec-2021 Active carbidopa 25 mg / levodopa 100 mg oral tablet (5 sources) Aromatic Amino Acid Decarboxylation Inhibitor, Aromatic Amino Acid Start: 12-25-2023 End: 01-23-2024 take 0.5 tablet by mouth three times daily, then take 1 tablet by mouth three times daily, then take 1 tablet by mouth three times daily carbidopa-levodopa (SINEMET) 25-100 mg per tablet Take 0.5 tablets by mouth three times a day for 7 days, THEN 1 tablet three times a day for 23 days. Then refill 1 tablet three times daily. 90 tablet 11 12/25/2023 Active doxycycline hyclate 100 mg delayed release oral tablet (1 source) Tetracycline-class Drug Start: 12-21-2020 End: 12-27-2020 take 1 tablet by mouth twice daily doxycycline hyclate 100 mg oral delayed release tablet ; 1 tab(s) orally 2 times a day Quantity: 14 Refills: 0 Ordered: 21-Dec-2020 Sawyer Zarco Start: 21-Dec-2020 End: 27-Dec-2020 Generic Substitution Allowed Comments: Avoid prolonged or excessive exposure to direct and/or artificial sunlight while taking this medication.Do not chew, break, or crush.Do not take dairy products, antacids, or iron preparations within one hour of this medication.Do not take this drug if you are .Finish all this medication unless otherwise directed by prescriber.Medication should be taken with plenty of water. Comment on above: Avoid prolonged or excessive exposure to direct and/or artificial sunlight while taking this medication.Do not chew, break, or crush.Do not take dairy products, antacids, or iron preparations within one hour of this medication.Do not take this drug if you are .Finish all this medication unless otherwise directed by prescriber.Medication should be taken with plenty of water. finasteride 5 mg oral tablet (20 sources) 5-alpha Reductase Inhibitor Start: 11-25-2017 End: 11-10-2024 take 1 tablet by mouth once daily finasteride (PROSCAR) 5 mg tablet Indications: Liver cyst Take 5 mg by mouth once daily. 11/25/2017 Active Comment on above: Take 5 mg by mouth once daily. fluticasone propionate 0.05 mg/actuat metered dose nasal spray (16 sources) Corticosteroid Start: 04-23-2021 End: 11-25-2022 take 1 spray(s) nasal route once daily fluticasone (Flonase) 50 mcg/actuation nasal spray Administer 1 spray into each nostril once daily. 0 04/23/2021 11/25/2022 Discontinued (Therapy completed) Start: 04-23-2021 Fluticasone Pr opionate 50 MCG/ACT Nasal Suspension INSTILL 1 SQUIRT Daily Quantity: 1 Refills: 11 Ordered: 23-Apr-2021 Zoran Arceo MD Start : 23-Apr-2021 Active hydroCHLOROthiazide 12.5 mg / losartan potassium 50 mg oral tablet (20 sources) Thiazide Diuretic, Angiotensin 2 Receptor Laura Start: 03-27-2020 End: 11-10-2024 take 1 tablet by mouth once daily losartan-hydroCHLOROthiazide (HYZAAR) 50-12.5 mg per tablet Take 1 tablet by mouth once daily. 03/27/2020 Active ketorolac tromethamine 10 mg oral tablet (5 sources) Nonsteroidal Anti-inflammator y Drug, Cyclooxygenase Inhibitor Start: 10-05-2020 End: 11-27-2020 take 1 tablet by mouth four times daily as needed for pain Ketorolac Tromethamine 10 MG Oral Tablet TAKE 1 TABLET 4 TIMES DAILY Quantity: 20 Refills: 0 Ordered: 05-Oct-2020 Zoran Arceo MD Start : 05-Oct-2020 End : 27-Nov-2020 Complete as needed for pain mirtazapine 15 mg oral tablet (5 sources) Start: 12-25-2023 End: 12-24-2024 take 1 tablet by mouth once daily at bedtime mirtazapine (REMERON) 15 mg tablet Take 1 tablet by mouth daily at bedtime. 30 tablet 11 12/25/2023 12/24/2024 Active multivit with minerals/lutein (MULTIVITAMIN 50 PLUS ORAL) (5 sources) Start: 03-20-2015 take 1 tablet by mouth once daily multivit with minerals/lutein (MULTIVITAMIN 50 PLUS ORAL) Take 1 tablet by mouth once daily. 03/20/2015 Active Start: 03-20-2015 take 1 tablet by segundo th once daily multivit with minerals/lutein (MULTIVITAMIN 50 PLUS ORAL) Take 1 tablet by mouth once daily. 0 03/20/2015 Active pravastatin sodium 40 mg oral tablet (20 sources) HMG-CoA Reductase Inhibitor Start: 09-29-2017 End: 11-10-2024 take 1 tablet by mouth once daily pravastatin (PRAVACHOL) 40 mg tablet Indications: Liver cyst Take 40 mg by mouth once daily. 09/29/2017 Active Comment on above: Take 40 mg by mouth once daily. sildenafil 100 mg oral tablet (20 sources) Phosphodiesterase 5 Inhibitor Start: 06-18-2019 End: 11-25-2022 sildenafil (Viagra) 100 mg tablet Take 1 tablet (100 mg) by mouth if needed. 0 06/18/2019 11/25/2022 Discontinued (Therapy completed) Start: 06-18-2019 End: 06-04-2021 take 1 tablet by mouth once daily Sildenafil Citrate 50 MG Oral Tablet TAKE 1 TABLET DAILY 1 HOUR BEFORE NEEDED Quantity: 30 Refills: 1 Ordered: 18-Jun-2019 Zoran Arceo MD Start : 18-Jun-2019 End : 04-Jun-2021 Complete End: 12-24-2023 sildenafil citrate (VIAGRA O RAL) Take 1 tablet by mouth as needed. 12/24/2023 Discontinued sildenafil citra te (VIAGRA ORAL) Take 1 tablet by mouth as needed. 0 Active Comment on above: Take 1 tablet by segundo th as needed. tamsulosin hydrochloride 0.4 mg oral capsule (18 sources) alpha-Adrenergic Laura Start: 06-04-19 End: 11-25-19 take 1 capsule by mouth once daily tamsulosin (Flomax) 0.4 mg 24 hr capsule Take 1 capsule (0.4 mg) by mouth once daily. 06/04/2021 11/25/2023 Active triamcinolone acetonide 0.055 mg/actuat metered dose nasal spray (18 sources) Corticosteroid Start: 02-28-20 End: 11-26-19 take 2 spray(s) nasal route once daily triamcinolone (Nasacort) 55 mcg nasal inhaler Administer 2 sprays into each nostril once daily. 0 02/27/2021 11/25/2022 Discontinued (Therapy completed) Start: 02-27-2021 Triamcinolone Acetonide 55 MCG/ACT Nasal Aerosol INSTILL 2 SQUIRT Daily Quantity: 1 Refills: 11 Ordered: 27-Feb-2021 Zoran Arceo MD Start : 27-Feb-2021 Active Completed/Discontinued Medications Medication Drug Class(es) Dates Sig (Normalized) Sig (Original) acetaminophen 325 mg / HYDROcodone bitartrate 5 mg oral tablet (2 sources) Opioid Agonist Start: 10-26-2021 take 1 tablet by mouth every six hours as needed HYDROcodone-Acet aminophen 5-325 MG Oral Tablet TAKE 1 TABLET EVERY 6 HOURS NEEDED. Quantity: 20 Refills: 0 Ordered: 29-Oct-2021 Zoran Arceo MD Start : 29-Oct-2021 Active amLODIPine 5 mg oral tablet (6 sources) Dihydropyridine Calcium Channel Laura Start: 04-27-2019 take 1 tablet by mouth once daily amLODIPine Besylate 5 MG Oral Tablet Take 1 tablet daily Quantity: 30 Refills: 11 Zoran Arceo Start : 27-Apr-2019 Active Start: 04-27-2019 take 1 tablet by segundo once daily amLODIPine Besylate 10 MG Oral Tablet Take 1 tablet daily Quantity: 30 Refills: 1 Zoran Arceo Start : 27-Apr-2019 Active hydrOXYzine hydrochloride 10 mg oral tablet (9 sources) Antihistamine Start: 01-02-2021 take 1-2 tablets by mouth at bedtime hydrOXYzine HCl - 10 MG Oral Tablet 1-2 tablets at bedtime to help relax Quantity: 30 Refills: 5 Ordered: 02-Jan-2021 Zoran Arceo MD Start : 02-Jan-2021 Active levoFLOXacin 500 mg oral tablet (8 sources) Quinolone Antimicrobial Start: 01-03-2021 take 1 tablet by mouth once daily levoFLOXacin 500 MG Oral Tablet TAKE 1 TABLET DAILY DIRECTED. Quantity: 5 Refills: 1 Ordered: 03-Jan-2021 Zoran Arceo MD Start : 03-Jan-2021 Active lisinopril 10 mg oral tablet (3 sources) Angiotensin Converting Enzyme Inhibitor Start: 05-04-2019 take 1 tablet by mouth once daily Lisinopril 10 MG Oral Tablet TAKE 1 TABLET DAILY. Quantity: 30 Refills: 11 Zoran Arceo Start : 04-May-2019 Active losartan potassium 25 mg oral tablet (6 sources) Angiotensin 2 Receptor Laura Start: 06-01-2019 End: 12-25-2023 take 1 tablet by mouth twice daily losartan (COZAAR) 25 mg tablet Take 1 tablet by mouth twice daily. 180 tablet 5 06/01/2019 12/25/2023 Discontinued Comment on above: Take 1 tablet by segundo th twice daily. mupirocin 0.02 mg/mg topical ointment (20 sources) RNA Synthetase Inhibitor Antibacterial Start: 09-25-2018 End: 12-25-2023 mupirocin (BACTROBAN) 2 % ointment Indications: Laceration of right little finger without foreign body without damage to nail, initial encounter Apply 1 application to affected area three times daily. 30 g 09/25/2018 12/25/2023 Discontinued Comment on above: Apply 1 application to affected area three times daily. naproxen 500 mg oral tablet (7 sources) Nonsteroidal Anti-inflammatory Drug Start: 07-31-2021 End: 12-10-2021 take 1 tablet by mouth every twelve hours as needed Naproxen 500 MG Oral Tablet TAKE 1 TABLET EVERY 12 HOURS NEEDED. Quantity: 30 Refills: 1 Ordered: 31-Jul-2021 Katie Mireles Start : 31-Jul-2021 End : 10-Dec-2021 Complete 24 hr NIFEdipine 60 mg extended release oral tablet (20 sources) Dihydropyridine Calcium Channel Laura Start: 03-11-2020 take 1 tablet by mouth once daily NIFEdipine ER 60 MG Oral Tablet Extended Release 24 Hour TAKE 1 TABLET DAILY. Quantity: 90 Refills: 3 Ordered: 29-May-2022 Zoran Arceo MD Start : 11-Mar-2020 Active Start: 06-01-2019 take 1 tablet by segundo th once daily before mealtime NIFEdipine CC (NIFEdipine XL) 30 mg 24 hr tablet Take 1 tablet (30 mg) by mouth once daily in the morning. Take before meals. 0 06/01/2019 Active Start: 06-01-2019 End: 12-25-2023 take 1 tablet by mouth once daily NIFEdipine ER (PROCARDIA XL) 30 mg 24 hr tablet Take 1 tablet by mouth once daily. 90 tablet 5 06/01/2019 12/25/2023 Discontinued Comment on above: Take 1 tablet by segundo th once daily. Problems Active Problems Problem Classification Problem Date Documented Date Episodic/Chronic Abdominal hernia (18 sources) Bilateral inguinal hernia; Translations: [Inguinal hernia, without mention of obstruction or gangrene, bilateral (not specified as recurrent)] Onset: 12-25-2023 12-25-2023 Episodic Anxiety disorders (1 source) Generalized anxiety disorder; Translations: [Generalized anxiety disorder] 12-25-2023 Chronic Cancer of prostate (8 sources) Malignant tumor of prostate; Translations: [Malignant neoplasm of prostate] Onset: 01-13-2024 02-11-2024 Chronic Chronic kidney disease (20 sources) Chronic kidney disease stage 3; Translations: [Chronic kidney disease, Stage III (moderate)] Onset: 06-01-2019 Resolved: 11-11-2023 06-01-2019 Chronic Chronic kidney disease (2 sources) Chronic kidney disease; Translations: [Chronic kidney disease, stage 3a (CMS/HCC)] Onset: 05-13-2023 Disorders of lipid metabolism (20 sources) Familial combined hyperlipidemia; 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 hyperlipidemia] Onset: 02-18-2018 02-18-2018 Chronic E Codes: Natural/environment (1 source) Struck by horse, initial encounter; Translations: [Struck by horse, initial encounter] Episodic Esophageal disorders (20 sources) Gastroesophageal reflux disease; Translations: [Esophageal reflux] Onset: 11-21-2022 11-25-2022 Chronic Essential hypertension (20 sources) Hypertensive disorder; Translations: [Unspecified essential hypertension] Onset: 02-18-2018 02-18-2018 Chronic Fluid and electrolyte disorders (2 sources) Hyponatremia; Translations: [Hyposmolality and/or hyponatremia] 12-21-2020 Episodic Headache; including migraine (20 sources) Temporal headache; Translations: [Headache] Onset: 11-21-2022 11-25-2022 Episodic Headache; including migraine (2 sources) Headache; including migraine; Translations: [Headache, unspecified] Onset: 11-21-2022 Hyperplasia of prostate (20 sources) Benign prostatic hyperplasia; Translations: [Hypertrophy (benign) of prostate without urinary obstruction and other lower urinary tract symptom (LUTS)] Onset: 11-21-2022 11-25-2022 Chronic Immunizations and screening for infectious disease (20 sources) Patient encounter status; Translations: [Other specified vaccination] Onset: 02-11-2024 02-11-2024 Episodic Miscellaneous mental health disorders (4 sources) Primary insomnia; Translations: [Primary insomnia] Onset: 05-13-2023 05-13-2023 Chronic Osteoarthritis (20 sources) Osteoarthritis of right knee joint; Translations: [Osteoarthrosis, localized, primary, lower leg] Onset: 11-21-2022 11-25-2022 Chronic Other diseases of veins and lymphatics (4 sources) Lymphedema, not elsewhere classified; Translations: [Lymphedema, not elsewhere classified] Onset: 11-21-2022 Chronic Other endocrine disorders (20 sources) Adrenal hyperplasia; Translations: [Other specified disorders of adrenal glands] Onset: 11-21-2022 11-25-2022 Chronic Other endocrine disorders (6 sources) Other specified disorders of adrenal gland; Translations: [Other specified disorders of adrenal gland] Onset: 11-21-2022 Chronic Other fractures (1 source) Closed fracture of single left rib; Translations: [Fracture of one rib, left side, initial encounter for closed fracture] Episodic Other fractures (1 source) Fracture of rib; Translations: [Closed fracture of rib(s), unspecified] Episodic Other hereditary and degenerative nervous system conditions (20 sources) Essential tremor; Translations: [Essential and other specified forms of tremor] Chronic Other hereditary and degenerative nervous system conditions (1 source) Impaired cognition; Translations: [Mild cognitive impairment, so stated] 01-11-2024 Chronic Other injuries and conditions due to external causes (2 sources) Hematoma; Translations: [Other injury of unspecified body region, initial encounter] 08-21-2023 Episodic Other liver diseases (2 sources) Other specified diseases of liver; Translations: [Other specified diseases of liver] Onset: 05-13-2023 Chronic Other lower respiratory disease (2 sources) Rib pain; Translations: [Pleurodynia] Episodic Other lower respiratory disease (4 sources) Chronic cough; Translations: [Chronic cough] Onset: 11-25-2022 11-25-2022 Episodic Other male genital disorders (6 sources) Impotence of organic origin; 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, organic] Chronic Other male genital disorders (20 sources) Secondary erectile dysfunction; 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 of organic origin] Onset: 11-21-2022 11-21-2022 Chronic Other nutritional; endocrine; and metabolic disorders (4 sources) Body mass index 25-29 - overweight; Translations: [Body mass index (BMI) of 26.0 to 26.9 in adult] Chronic Other nutritional; endocrine; and metabolic disorders (3 sources) Hypercalcemia; Translations: [Hypercalcemia] Onset: 10-07-2023 02-11-2024 Chronic Other nutritional; endocrine; and metabolic disorders (2 sources) Hypercalcemia; Translations: [Hypercalcemia] Onset: 10-07-2023 Chronic Other nutritional; endocrine; and metabolic disorders (18 sources) Overweight in adulthood with body mass index of 25 or more but less than 30; Translations: [Overweight] Resolved: 06-04-2021 Episodic Other screening for suspected conditions (not mental disorders or infectious disease) (20 sources) Raised prostate specific antigen; Translations: [Elevated prostate specific antigen [PSA]] Onset: 02-10-2023 Resolved: 05-13-2023 11-25-2022 Episodic Other upper respiratory disease (20 sources) Chronic rhinitis; Translations: [Chronic rhinitis] Onset: 11-21-2022 11-25-2022 Chronic Other upper respiratory disease (2 sources) Chronic rhinitis; Translations: [Chronic rhinitis] Onset: 11-21-2022 Chronic Parkinson`s disease (20 sources) Symptomatic parkinsonism; Translations: [Paralysis agitans] Onset: 11-21-2022 11-25-2022 Chronic Parkinson`s disease (6 sources) Parkinson`s disease; Translations: [Parkinson's disease without dyskinesia or fluctuating manifestations (HCC)] Onset: 11-21-2022 Peripheral and visceral atherosclerosis (20 sources) Atheroma of artery; Translations: [Generalized and unspecified atherosclerosis] Onset: 11-21-2022 11-21-2022 Chronic Pneumonia (except that caused by tuberculosis or sexually transmitted disease) (5 sources) Pneumonia; Translations: [Pneumonia, organism unspecified] 12-21-2020 Episodic Residual codes; unclassified (3 sources) Insomnia co-occurrent and due to medical condition; Translations: [Insomnia due to medical condition] Onset: 11-11-2023 12-25-2023 Chronic Residual codes; unclassified (1 source) Insomnia due to medical condition; Translations: [Insomnia due to medical condition] Onset: 05-13-2023 Chronic Residual codes; unclassified (1 source) Bilateral lower limb edema; Translations: [Edema] Episodic Residual codes; unclassified (2 sources) Edema of left lower limb; Translations: [Localized edema] 08-21-2023 Episodic Residual codes; unclassified (1 source) Contact with and (suspected) exposure to other hazardous, chiefly nonmedicinal, chemicals; Translations: [Contact with and (suspected) exposure to other potentially hazardous chemicals] 12-25-2023 Episodic Spondylosis; intervertebral disc disorders; other back problems (20 sources) Cervical spondylosis without myelopathy; Translations: [Cervical spondylosis without myelopathy] Onset: 11-21-2022 11-25-2022 Chronic Unclassified (6 sources) Parkinson's disease; Translations: [Parkinson's disease without dyskinesia or fluctuating manifestations (HCC)] Onset: 12-23-2023 12-25-2023 Chronic Unclassified (1 source) 6 MONTHS OV 11-27-2020 Comment on above: 6 MONTHS OV Unclassified (1 source) COVID-19 12-21-2020 Unclassified (1 source) Cough, unspecified; Translations: [Cough, unspecified] Onset: 11-25-2022 Past or Other Problems Problem Classification Problem Date Documented Date Episodic/Chronic Diabetes mellitus without complication (18 sources) Impaired fasting glycaemia; Translations: [Impaired fasting glucose] Onset: 3 11-25-2022 Episodic Genitourinary symptoms and ill-defined conditions (2 sources) Nocturia; Translations: [Nocturia] Onset: 3 Episodic Nonspecific chest pain (8 sources) Chest pain; Translations: [Chest pain, unspecified] Onset: 9 Resolved: 9 12-21-2020 Episodic Comment on above: CHEST PAIN Other diseases of bladder and urethra (12 sources) Bladder distention; Translations: [Other specified disorders of bladder] Onset: 3 Resolved: 4 11-21-2022 Chronic Other diseases of kidney and ureters (1 source) Secondary hyperparathyroidism; Translations: [Secondary hyperparathyroidism of renal origin] Onset: 4 Resolved: 4 11-11-2023 Chronic Other diseases of veins and lymphatics (20 sources) Lymphedema of bilateral lower limbs; Translations: [Other lymphedema] Onset: 3 Resolved: 4 11-25-2022 Chronic Other ear and sense organ disorders (20 sources) Bilateral tinnitus; Translations: [Tinnitus, unspecified] Onset: 3 11-25-2022 Episodic Other ear and sense organ disorders (2 sources) Tinnitus, bilateral; Translations: [Tinnitus, bilateral] Onset: 3 Episodic Other gastrointestinal disorders (12 sources) Acute constipation; Translations: [Constipation, unspecified] Onset: 3 Resolved: 3 11-25-2022 Episodic Other injuries and conditions due to external causes (4 sources) Other injury of unspecified body region, initial encounter; Translations: [Other injury of unspecified body region, initial encounter] Onset: 4 Episodic Other liver diseases (20 sources) Liver cyst; Translations: [Other specified disorders of liver] Onset: 8 Resolved: 8 05-13-2023 Chronic Other lower respiratory disease (17 sources) H/O: pneumonia; Translations: [Personal history of pneumonia (recurrent)] Resolved: 1 Episodic Other nervous system disorders (5 sources) Tremor; Translations: [Tremor, unspecified] Onset: 3 Resolved: 4 05-13-2023 Episodic Other non-traumatic joint disorders (20 sources) Pain in right knee; Translations: [Right knee pain] Onset: 3 Resolved: 3 11-25-2022 Episodic Other nutritional; endocrine; and metabolic disorders (20 sources) Body mass index 25-29 - overweight; Translations: [Body Mass Index 26.0-26.9, adult] Resolved: 2 Episodic Other skin disorders (20 sources) Actinic keratosis; Translations: [Actinic keratosis] Onset: 3 11-25-2022 Episodic Other skin disorders (1 source) Actinic keratosis; Translations: [Actinic keratosis] Onset: 3 Episodic Other upper respiratory disease (20 sources) Deviated nasal septum; Translations: [Deviated nasal septum] Onset: 3 11-25-2022 Episodic Other upper respiratory disease (20 sources) Nasal vestibulitis; Translations: [Other disease of nasal cavity and sinuses] Onset: 3 Resolved: 3 11-25-2022 Episodic Other upper respiratory disease (20 sources) Hypertrophy of nasal turbinates; Translations: [Hypertrophy of nasal turbinates] Onset: 3 Resolved: 3 11-25-2022 Episodic Other upper respiratory disease (1 source) Deviated nasal septum; Translations: [Deviated nasal septum] Onset: 3 Episodic Residual codes; unclassified (20 sources) History of clinical finding in subject; Translations: [Personal history of other specified diseases] Resolved: 1 Episodic Residual codes; unclassified (20 sources) Insomnia; Translations: [Insomnia, unspecified] Onset: 4 05-13-2023 Episodic Residual codes; unclassified (4 sources) Localized edema; Translations: [Localized edema] Onset: 4 Episodic Sprains and strains (20 sources) Chondrocostal joint sprain; Translations: [Sprain of ribs] Resolved: 2 Episodic Superficial injury; contusion (19 sources) Contusion of left wrist; Translations: [Contusion of wrist] Resolved: 2 Episodic Unclassified (4 sources) Patient encounter status; Translations: [Encounter for immunization] Unclassified (6 sources) Onset: 3 Resolved: 4 11-25-2022 Viral infection (20 sources) Disease caused by 2019-nCoV; Translations: [Other specified viral infection] Resolved: 2 12-21-2020 Episodic NEGATED: Highlighted row has not occurred!Residual codes; unclassified (13 sources) Disease Episodic Results Test Name Value Interpretation Reference Range Facility Comprehensive metabolic 2000 panelon 02-11-2024 Albumin BCP dye [Mass/Vol] 3.9 g/dL Normal 3.4-5.0 [facility] Comment on above: Performed By: #### 2 4323-8 #### FRIDA JALLOH ([id number]) [facility] ([facility]) [address] [place] [address] ALP [Catalytic activity/Vol] 78 U/L Normal 33-136 [facility] Comment on above: Performed By: #### 2 432-8 #### FRIDA JALLOH ([id number]) [facility] ([facility]) [address] [place] [address] ALT With P-5'-P [Catalytic activity/Vol] 32 U/L Normal 10-52 [facility] Comment on above: Result Comment: Nadia ents treated with Sulfasalazine may generate falsely decreased results for ALT. Performed By: #### 2 432-8 #### FRIDA JALLOH ([id number]) [facility] ([facility]) [address] [place] [address] Anion gap [Moles/Vol] 9 mmol/L Low 10-20 [facility] Comment on above: Performed By: #### 2 4322-8 #### FRIDA JALLOH ([id number]) [facility] ([facility]) [address] [place] [address] AST With P-5'-P [Catalytic activity/Vol] 24 U/L Normal 9-39 [facility] Comment on above: Performed By: #### 2 432-8 #### FRIDA JALLOH ([id number]) [facility] ([facility]) [address] [place] [address] Bilirubin [Mass/Vol] 0.5 mg/dL Normal 0.0-1.2 [facility] Comment on above: Performed By: #### 2 4323-8 #### FRIDA JALLOH ([id number]) [facility] ([facility]) [address] [place] [address] Calcium [Mass/Vol] 10.4 mg/dL High 8.6-10.3 [facility] Comment on above: Performed By: #### 2 4323-8 #### FRIDA JALLOH ([id number]) [facility] ([facility]) [address] [place] [address] Chloride [Moles/Vol] 103 mmol/L Normal 98-107 [facility] Comment on above: Performed By: #### 2 4323-8 #### FRIDA JALLOH ([id number]) [facility] ([facility]) [address] [place] [address] 38693 CO2 [Moles/Vol] 33 mmol/L High 21-32 [facility] Comment on above: Performed By: #### 2 4323-8 #### FRIDA JALLOH ([id number]) [facility] ([facility]) [address] [place] [address] Creatinine [Mass/Vol] 1.33 mg/dL High 0.50-1.30 [facility] Comment on above: Performed By: #### 2 4322-8 #### FRIDA JALLOH ([id number]) [facility] ([facility]) [address] [place] [address] 39185 Glomerular filtration rate/1.73 sq M.predicted 54 mL/min/1.73m*2 Low >60 [facility] Comment on above: Result Comment: Calc ulations of estimated GFR are performed using the 2020 CKD-EPI Study Refit equation without the race variable for the IDMS-Traceable creatinine methods. https://jasn.asnjournals.org/content/early//ASN.5960256869 Performed By: #### 2 432-8 #### FRIDA JALLOH ([id number]) [facility] ([facility]) [address] [place] [address]89 Glucose [Mass/Vol] 137 mg/dL High 74-99 [facility] Comment on above: Performed By: #### 2 4323-8 #### FRIDA JALLOH ([id number]) [facility] ([facility]) [address] [place] [address] Potassium [Moles/Vol] 3.8 mmol/L Normal 3.5-5.3 [facility] Comment on above: Performed By: #### 2 4323-8 #### FRIDA JALLOH ([id number]) [facility] ([facility]) [address] [place] [address] Protein [Mass/Vol] 6.3 g/dL Low 6.4-8.2 [facility] Comment on above: Performed By: #### 2 4323-8 #### FRIDA JALLOH ([id number]) [facility] ([facility]) [address] [place] [address]58 Sodium [Moles/Vol] 141 mmol/L Normal 136-145 [facility] Comment on above: Performed By: #### 2 4323-8 #### FRIDA JALLOH ([id number]) [facility] ([facility]) [address] [place] [address]387 Urea nitrogen [Mass/Vol] 23 mg/dL Normal 6-23 [facility] Comment on above: Performed By: #### 2 4323-8 #### FRIDA JALLOH ([id number]) [facility] ([facility]) [address] [place] [address] Parathyrin.intacton 02-10- 24 Parathyrin.intact [Mass/Vol] 116.8 pg/mL High 18.5-88.0 [facility] Comment on above: Performed By: #### 2 4323-8 #### FRIDA JALLOH ([id number]) [facility] ([facility]) [address] [place] [address] Prostate specific Agon 02-10 Prostate specific Ag [Mass/Vol] 10.27 ng/mL High <=4.00 [facility] Comment on above: Order Comment: The F DA requires that the method used for PSA assay be reported to the physician. Values obtained with different assay methods must not be used interchangeably. This test was performed at [facility] using the [employer] PSA assay is a two-site immunoenzymatic sandwichassay. The assay is approved for measurement of prostate-specific antigen (PSA)in serum and may be used in conjunction with a digital rectal examination in men 50 years and older as an aid in detection of prostate cancer.6-Vhuck-dhdkjunxo inhibitors (e.g. Proscar, Finasteride, Avodart, Dutasteride and Tila) for the treatment of BPH have been shown to lower PSA levels by an average of 50% after 6 months of treatment. Performed By: #### 2 4323-8 #### GALICIA YEIMI ([id number]) [facility] ([facility]) [address] [place] [address] CNOVon 02-10-2024 CNOV Office Visit (RADTMN ) -- PETE ODONNELL ([id number]) 1945 M Date Time Provider Department 02/10/24 9:00 AM CHRISTI SHAIKH During your visit today, we recorded the following information about you: Pulse Respiration Blood pressure Weight 63/minute 16/minute 148/55 81.5 kg Height 1.727 m Christi Shaikh MD 02/11/2024 8:04 AM Signed Radiation Oncology - Prostate Cancer New Patient/Consult Note PATIENT NAME: Pete Odonnell PATIENT REQUESTING PROVIDER: Denver Cho MD DIAGNOSIS: 79 year old male with prostate adenocarcinoma, initial PSA 8.24, biopsy Lily score 3 + 4 = 7 (grade group 2), clinical stage T1c, N0, M0, stage IIB [T1-T2, N0, M0, PSA <20, GG 2] (AJCC 8th ed.), s/p biopsy. NCCN Risk Group: Intermediate risk HPI: 79 year old male with prostate adenocarcinoma who presents for an opinion regarding the role of radiation therapy in the management of the patient's disease. Final recommendations will be communicated back to the requesting physician by way of the shared medical record, or letter to requesting physician via US mail. The patient was diagnosed with prostate cancer and comes in today to discuss treatment options. Pete Odonnell initially presented with rising PSA beginning spring of this year. PSA zabrina to 8.24 on 11/07/2023. He underwent biopsy on 12/17/2023 which showed Lily 3+4=7 prostate adenocarcinoma involving 4 of 6 [address] He saw Dr[address] Cho who discussed management options. He presents today for the role for radiation in the management of his disease. Today, he feels well and presents with his daughter. Reports nocturia - gets up 3 times per night as well as some frequency. Denies issues with bowel movement. ROS positive for SOB ever since obed COVID over a year ago. He has a known Parkinson's disease and is on Sinemet. Over the last year, has had some word finding difficulty and mild cognitive change per daughter. PSA history: 11/07/2023 8.24 09/29/2023 7.1 07/30/2023 7.26 02/15/2023 6.5 12/30/2022 4.92 05/27/2022 4.20 11/24/2020 2.31 Prostate biopsy on 12/17/2023 revealed: A. Right prostate, apex, core biopsy: Mild chronic inflammation. B. Right prostate, mid, core biopsy: Adenocarcinoma. Walden grade: 3+4 (7) Cores involved: 1/1 Tissue involved: 20% Greatest tumor length: 2.0 millimeters C. Right prostate, base, core biopsy: Minimal chronic inflammation. D. Left prostate, apex, core biopsy: Adenocarcinoma. Walden grade: 3+4 (7) Cores involved: 1/1 Tissue involved: 95% Perineural invasion: Present Greatest tumor length: 10.0millimeters E. Left prostate, mid, core biopsy: Adenocarcinoma. Walden grade: 7 (3+4) Cores involved: 1/1 Tissue involved: 95% Perineural invasion: Present Greatest tumor length: 10.5 millimeters F. Left prostate, base, core biopsy: Adenocarcinoma. Walden grade: 3+4 (7) Cores involved: 1/1 Tissue involved: 85% Perineural invasion: Present Greatest tumor length: 10.5 millimeters Staging Studies: None Previous Treatment for Prostate Cancer: None Genomic Testing: None The patient reports the following pertinent history: Urinary frequency (D/N): 3-4/3 Dysuria: No Incontinence: 1- No pads Hematuria: No - AUA Questionnaire (symptoms within the past 1 month) Incomplete Emptyin (not at all) Frequency (within 2 hours of previous void): 2 (less than half the time) Intermittency: 0 (not at all) Urgency (difficulty postponing urination): 0 (not at all) Weak Stream: 0 (not at all) Strainin (not at all) Nocturia: 3x per night - Total AUA Score: 5 Bowel Movement Frequency: 1-2/day Bowel Movement Quality: Normal Blood per Rectum: No Last Colonoscopy: 2016 Baseline Erectile Function: 2- Diminished but usually satisfactory for intercourse Sexual Health Inventory (MAYE) score: 01/13 Androgen Deprivation: No Prior Radiation Therapy, Collagen Vascular Disease, or Inflammatory Bowel Disease: No Any implanted or external electric devices? No Currently on Anticoagulation: No History of Hip Replacement: No History of Prior TURP: No ALLERGIES No Known Allergies carbidopa-levodopa (SINEMET) 25-100 mg per tablet Take 0.5 tablets by mouth three times a day for 7 days, THEN 1 tablet three times a day for 23 days. Then refill 1 tablet three times daily. mirtazapine (REMERON) 15 mg tablet Take 1 tablet by mouth daily at bedtime. losartan-hydroCHLOROthiazi de (HYZAAR) 50-12.5 mg per tablet Take 1 tablet by mouth once daily. pravastatin (PRAVACHOL) 40 mg tablet Take 40 mg by mouth once daily. finasteride (PROSCAR) 5 mg tablet Take 5 mg by mouth once daily. PAST MEDICAL HISTORY Diagnosis Date Gastroesophageal reflux disease without esophagitis Hypercholesteremia Hypertension Insomnia Insomnia due to medical condition Alfred (more content not included)... Normal [facility] CNOVon 12-25-2023 CNOV Office Visit (NRMDN) -- PETE ODONNELL ([id number]) 1945 M Date Time Provider Department 12/25/23 1:00 PM TRENT DEGROOT NRMDN During your visit today, we recorded the following information about you: Weight Height 77.7 kg 1.727 m Trent Degroot MD 12/25/2023 2:01 PM Signed [facility] - NEW PATIENT EVALUATION Primary Care Provider: Zoran Arceo MD, MD [address] [facility] [address] Dear Zoran Arceo MD, MD: I had the pleasure of evaluating Mr. Odonnell in our clinic today. As you know he is a 78 year old right-handed male who presents for evaluation of Parkinson's disease with left sided tremor predominance since 2018. He is seen with a daughter. Subjective HISTORY OF PRESENT ILLNESS: Initial HPI Wood Odonnell is a 78 year old male, right hand dominant, presenting for evaluation of worsening tremors and sleep disturbances, accompanied by his daughter. Patient has a history of Parkinson's disease, with initial symptoms of left-sided resting tremor noticed around [id number], following surgery for a hepatic cyst. The tremors have since progressed to involve both sides, with the left side remaining more severely affected. Patient's daughter reports that the tremors have become significantly worse since last December, with visible tremors in the head and a more stooped posture. Patient has not been on any Parkinson's medications to date. In addition to tremors, patient reports experiencing severe anxiety and sleep disturbances. He is able to fall asleep with the aid of melatonin but wakes up after 1-2 hours and is unable to return to sleep. He also experiences discomfort in his legs at night, which he describes as an urge to move rather than pain. This discomfort, along with anxiety, contributes to his sleep disturbances. Patient's daughter confirms these observations, noting that his anxiety levels have increased since a change in his blood pressure medication last December. 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 He also reports memory problems and occasional hallucinations, seeing things in his peripheral vision that are not there. He experiences a lack of motivation and apathy, particularly in activities that he used to enjoy. Patient has a family history of Parkinson's disease, with a sister who with a diagnosis of either Parkinson's or Lewy body dementia. His parents did not have Parkinson's disease. Patient is a with a history of Agent [place] exposure during his service in [place]. He has been evaluated by the [facility] and is receiving connected benefits for Parkinson's disease. He also spent two years at [employer] ([id number]) but has not applied for connected benefits related to his time there. Patient has a history of high blood pressure and cholesterol. He was previously on Losartan and Nifedipine for blood pressure management but was switched to Losartan and Hydrochlorothiazide due to ankle swelling. He also has a history of actinic keratosis, with some lesions removed by a chief crew scheduler. He has not had any surgeries other than the one for the liver cyst. He was once trampled by a horse, resulting in back bruising but no broken bones. He has an enlarged prostate and some cervical spondylosis. He experiences occasional tinnitus. 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 He has been working on stretching his muscles and trying to maintain a straight posture. He has not participated in any formal physical therapy. Movement Disorders Medications Schedule - as of the start of the visit: Medications None Questionnaires In addition, the following areas that may be affected by abnormal involuntary movements were evaluated: Daily activities Difficulties with eatin (none) Difficulties in dressing: Yes (slight) Difficulties with hygiene activities: Yes (slight) Difficulties with handwritin (none) Difficulties with doing hobbies and other activities: Yes (slight) Difficulties turning in bed: 0 (none) Difficulties getting out of bed, car or chair: Yes (slight) Tremors/Gait/Balance Shaking or tremors: Yes (mild) Walking and balance problems: Yes (slight) Number of falls in the Last Month: 0 Gait freezin (none) Autonomic/Pain Lightheadeness on standing: Yes (slight) Urinary problems: Yes (slight) Constipation problems: Yes (slight) Pain and other sensations: Yes (slight) Speech/Swallowing Speech problems: Yes (slight) Droolin (none) Chewing and swallowing problems: 0 (none) Sleep/Fatigue Sleep problems: Yes (severe) Takes melatonin Daytime sleepiness: Yes (severe) Fatigue: Yes (mild) Mood/Behavior Depression: PHQ-9 Score: 8 usually representing mild (5-9) depression. (more content not included)... Normal [facility] Comprehensive metabolic 2000 panelon 11-07-2023 Albumin BCP dye [Mass/Vol] 3.8 g/dL Normal 3.4-5.0 [facility] Comment on above: Performed By: #### 2 4323-8 #### FRIDA JALLOH ([id number]) [facility] ([facility]) [address] [place] [address] ALP [Catalytic activity/Vol] 51 U/L Normal 33-136 [facility] Comment on above: Performed By: #### 2 4323-8 #### FRIDA JALLOH ([id number]) [facility] ([facility]) [address] [place] [address] ALT With P-5'-P [Catalytic activity/Vol] 19 U/L Normal 10-52 [facility] Comment on above: Result Comment: Nadia ents treated with Sulfasalazine may generate falsely decreased results for ALT. Performed By: #### 2 4323-8 #### FRIDA JALLOH ([id number]) [facility] ([facility]) [address] [place] [address] Anion gap [Moles/Vol] 8 mmol/L Low 10-20 [facility] Comment on above: Performed By: #### 2 432-8 #### FRIDA JALLOH ([id number]) [facility] ([facility]) [address] [place] [address] AST With P-5'-P [Catalytic activity/Vol] 17 U/L Normal 9-39 [facility] Comment on above: Performed By: #### 2 4323-8 #### FRIDA JALLOH ([id number]) [facility] ([facility]) [address] [place] [address] Bilirubin [Mass/Vol] 0.5 mg/dL Normal 0.0-1.2 [facility] Comment on above: Performed By: #### 2 4323-8 #### FRIDA JALLOH ([id number]) [facility] ([facility]) [address] [place] [address] Calcium [Mass/Vol] 10.0 mg/dL Normal 8.6-10.3 [facility] Comment on above: Performed By: #### 2 4323-8 #### FRIDA JALLOH ([id number]) [facility] ([facility]) [address] [place] [address] 60009 Chloride [Moles/Vol] 106 mmol/L Normal 98-107 [facility] Comment on above: Performed By: #### 2 4323-8 #### FRIDA JALLOH ([id number]) [facility] ([facility]) [address] [place] [address] 86385 CO2 [Moles/Vol] 31 mmol/L Normal 21-32 [facility] Comment on above: Performed By: #### 2 4323-8 #### FRIDA JALLOH ([id number]) [facility] ([facility]) [address] [place] [address]1912 Creatinine [Mass/Vol] 1.14 mg/dL Normal 0.50-1.30 [facility] Comment on above: Performed By: #### 2 432-8 #### FRIDA JALLOH ([id number]) [facility] ([facility]) [address] [place] [address] 06396 Glomerular filtration rate/1.73 sq M.predicted 65 mL/min/1.73m*2 Normal >60 [facility] Comment on above: Result Comment: Calc ulations of estimated GFR are performed using the 2020 CKD-EPI Study Refit equation without the race variable for the IDMS-Traceable creatinine methods. https://jasn.asnjournals.org/content/early/ASN.9999969110 Performed By: #### 2 4323-8 #### FRIDA JALLOH ([id number]) [facility] ([facility]) [address] [place] [address] 82748 Glucose [Mass/Vol] 111 mg/dL High 74-99 [facility] Comment on above: Performed By: #### 2 4323-8 #### FRIDA JALLOH ([id number]) [facility] ([facility]) [address] [place] [address]39 Potassium [Moles/Vol] 4.0 mmol/L Normal 3.5-5.3 [facility] Comment on above: Performed By: #### 2 4323-8 #### FRIDA JALLOH ([id number]) [facility] ([facility]) [address] [place] [address] 63289 Protein [Mass/Vol] 6.2 g/dL Low 6.4-8.2 [facility] Comment on above: Performed By: #### 2 4323-8 #### FRIDA JALLOH ([id number]) [facility] ([facility]) [address] [place] [address] 24385 Sodium [Moles/Vol] 141 mmol/L Normal 136-145 [facility] Comment on above: Performed By: #### 2 4323-8 #### FRIDA JALLOH ([id number]) [facility] ([facility]) [address] [place] [address] 97581 Urea nitrogen [Mass/Vol] 21 mg/dL Normal 6-23 [facility] Comment on above: Performed By: #### 2 4323-8 #### FRIDA JALLOH ([id number]) [facility] ([facility]) [address] [place] [address] Prostate specific Agon 11-06 Prostate specific Ag [Mass/Vol] 8.24 ng/mL High <=4.00 [facility] Comment on above: Order Comment: The F DA requires that the method used for PSA assay be reported to the physician. Values obtained with different assay methods must not be used interchangeably. This test was performed at [facility] using the [employer] PSA assay is a two-site immunoenzymatic sandwichassay. The assay is approved for measurement of prostate-specific antigen (PSA)in serum and may be used in conjunction with a digital rectal examination in men 50 years and older as an aid in detection of prostate cancer.7-Zcsuc-cftjngwvv inhibitors (e.g. Proscar, Finasteride, Avodart, Dutasteride and Tila) for the treatment of BPH have been shown to lower PSA levels by an average of 50% after 6 months of treatment. Performed By: #### 2 4323-8 #### FRIDA JALLOH ([id number]) [facility] ([facility]) [address] [place], [place] [id number] CNPRhea 10-10-2023 CNPN Telephone ([email or web address]) -- PETE ODONNELL ([id number]) 1945 M Date Time Provider Department 10/10/23 NEUROLOGY PROVIDER TORY During your visit today, we recorded the following information about you: Abigail Martel LPN 10/10/2023 1:17 PM Signed Phone call placed spoke to patient and daughter while on speaker phone reported increased parkinson symptoms x3 years, tremors, balance, anxiety, sleep. Scheduled self through [facility] in 20 min appointment slot last visit [address] Singh. Offered patient to schedule with , sooner appointment , declined stated already scheduled with a new Neurologist in [place], requested to cancel appt. Abigail Martel LPN Allergies As of Date: 10/10/2023 (No Known Allergies) Date Reviewed: 05/28/2022 Reviewed by: Tomas Ramirez APRN.GROUND WATER CONTRACTOR - Fully Assessed Prescriptions as of 10/10/2023 - losartan (COZAAR) 25 mg tablet Take 1 tablet by mouth twice daily. - NIFEdipine ER (PROCARDIA XL) 30 mg 24 hr tablet Take 1 tablet by mouth once daily. - mupirocin (BACTROBAN) 2 % ointment Apply 1 application to affected area three times daily. - sildenafil citrate (VIAGRA ORAL) Take 1 tablet by mouth as needed. - pravastatin (PRAVACHOL) 40 mg tablet Take 40 mg by mouth once daily. - finasteride (PROSCAR) 5 mg tablet Take 5 mg by mouth once daily. Problem List As Of Date 10/10/2023 Noted Resolved Liver cyst [K76.89] 12/08/2017 02/22/2018 Essential hypertension [I10] 02/18/2018 Dyslipidemia [E78.5] 02/18/2018 Chest pain [R07.9] 04/20/2019 04/20/2019 CKD (chronic kidney disease) stage 3, GFR 30-59*06/01/2019 Encounter Status:Closed by ABIGAIL MARTEL on 10/10/23 Normal [facility] Calcium.ionizedon 10-07-2023 Calcium.ionized (Bld) [Moles/Vol] 1.36 mmol/L High 1.1-1.33 [facility] Comment on above: Result Comment: The performance characteristics of ionized calcium tested in heparinized plasma or serum have been validated by the individual laboratory site where testing is performed. Testing on heparinized plasma or serum is not approved by the FDA; however, such approval is not necessary. Performed By: #### 1 994-3 #### AYDE Hernandez ([id number]) [facility] ([facility]) [address] [place] [address] 23092 Parathyrin.intacton 10-07-19 Parathyrin.intact [Mass/Vol] 106.4 pg/mL High 18.5-88.0 [facility] Comment on above: Performed By: #### 2 731-8 #### AYDE Hernandez ([id number]) [facility] ([facility]) [address] [place] [address] 91741 CBC panel Auto (Bld)on 09-28 Erythrocyte distribution width (RBC) [Ratio] 12.4 % Normal 11.5-14.5 [facility] Comment on above: Performed By: #### 5 8410-2 #### FRIDA JALLHO ([id number]) [facility] ([facility]) [address] [place] [address] 62591 Hematocrit (Bld) [Volume fraction] 42.9 % Normal 41.0-52.0 [facility] Comment on above: Performed By: #### 5 8410-2 #### FRIDA JALLOH ([id number]) [facility] ([facility]) [address] [place] [address] 57118 Hemoglobin (Bld) [Mass/Vol] 14.5 g/dL Normal 13.5-17.5 [facility] Comment on above: Performed By: #### 5 8410-2 #### FRIDA JALLOH ([id number]) [facility] ([facility]) [address] [place] [address] 69330 MCH (RBC) [Entitic mass] 31.6 pg Normal 26.0-34.0 [facility] Comment on above: Performed By: #### 5 8410-2 #### FRIDA JALLOH ([id number]) [facility] ([facility]) [address] [place] [address] 22698 MCHC (RBC) [Mass/Vol] 33.8 g/dL Normal 32.0-36.0 [facility] Comment on above: Performed By: #### 5 8410-2 #### FRIDA JALLOH ([id number]) [facility] ([facility]) [address] [place], [place] [address] MCV (RBC) [Entitic vol] 94 fL Normal 80-100 [facility] Comment on above: Performed By: #### 5 8410-2 #### FRIDA JALLOH ([id number]) [facility] ([facility]) [address] [place] [address] 42495 Nucleated RBC/100 WBC (Bld) [Ratio] 0.0 /100 WBCs Normal 0.0-0.0 [facility] Comment on above: Performed By: #### 5 8410-2 #### FRIDA JALLOH ([id number]) [facility] ([facility]) [address] [place] [address] 09306 Platelets (Bld) [#/Vol] 298 x10*3/uL Normal 150-450 [facility] Comment on above: Performed By: #### 5 8410-2 #### FRIDA JALLOH ([id number]) [facility] ([facility]) [address] [place] [address] 32111 RBC (Bld) [#/Vol] 4.59 x10*6/uL Normal 4.50-5.90 [facility] Comment on above: Performed By: #### 5 8410-2 #### FRIDA JALLOH ([id number]) [facility] ([facility]) [address] [place] [address] 20878 WBC (Bld) [#/Vol] 7.8 x10*3/uL Normal 4.4-11.3 [facility] Comment on above: Performed By: #### 5 8410-2 #### FRIDA JALLOH ([id number]) [facility] ([facility]) [address] [place] [address] Comprehensive metabolic 2000 panelon 09-29-2023 Albumin BCP dye [Mass/Vol] 4.2 g/dL Normal 3.4-5.0 [facility] Comment on above: Performed By: #### 2 4323-8 #### FRIDA JALLOH ([id number]) [facility] ([facility]) [address] [place] [address] 96744 ALP [Catalytic activity/Vol] 59 U/L Normal 33-136 [facility] Comment on above: Performed By: #### 2 4323-8 #### FRIDA JALLOH ([id number]) [facility] ([facility]) [address] [place] [address] 49045 ALT With P-5'-P [Catalytic activity/Vol] 26 U/L Normal 10-52 [facility] Comment on above: Result Comment: Nadia ents treated with Sulfasalazine may generate falsely decreased results for ALT. Performed By: #### 2 4323-8 #### FRIDA JALLOH ([id number]) [facility] ([facility]) [facility] [place] [address] Anion gap [Moles/Vol] 8 mmol/L Low 10-20 [facility] Comment on above: Performed By: #### 2 4323-8 #### FRIDA JALLOH ([id number]) [facility] ([facility]) [facility] [place] [address] AST With P-5'-P [Catalytic activity/Vol] 25 U/L Normal 9-39 [facility] Comment on above: Performed By: #### 2 4323-8 #### FRIDA JALLOH ([id number]) [facility] ([facility]) [address] [place] [address] 09438 Bilirubin [Mass/Vol] 0.6 mg/dL Normal 0.0-1.2 [facility] Comment on above: Performed By: #### 2 4323-8 #### FRIDA JALLOH ([id number]) [facility] ([facility]) [address] [place] [address] 40763 Calcium [Mass/Vol] 10.6 mg/dL High 8.6-10.3 [facility] Comment on above: Performed By: #### 2 4323-8 #### FRIDA JALLOH ([id number]) [facility] ([facility]) [address] [place] [address] Chloride [Moles/Vol] 101 mmol/L Normal 98-107 [facility] Comment on above: Performed By: #### 2 4323-8 #### FRIDA JALLOH ([id number]) [facility] ([facility]) [address] [place] [address] 05847 CO2 [Moles/Vol] 32 mmol/L Normal 21-32 [facility] Comment on above: Performed By: #### 2 4323-8 #### FRIDA JALLOH ([id number]) [facility] ([facility]) [address] [place] [address] 37740 Creatinine [Mass/Vol] 1.30 mg/dL Normal 0.50-1.30 [facility] Comment on above: Performed By: #### 2 4323-8 #### FRIDA JALLOH ([id number]) [facility] ([facility]) [address] [place] [address] 16433 Glomerular filtration rate/1.73 sq M.predicted 56 mL/min/1.73m*2 Low >60 [facility] Comment on above: Result Comment: Calc ulations of estimated GFR are performed using the 2020 CKD-EPI Study Refit equation without the race variable for the IDMS-Traceable creatinine methods. https://jasn.asnjournals.org/content/early//ASN.2287247559 Performed By: #### 2 4323-8 #### FRIDA JALLOH ([id number]) [facility] ([facility]) [address] [place] [address] 85897 Glucose [Mass/Vol] 112 mg/dL High 74-99 [facility] Comment on above: Performed By: #### 2 4323-8 #### FRIDA JALLOH ([id number]) [facility] ([facility]) [address] [place] [address] 30676 Potassium [Moles/Vol] 3.6 mmol/L Normal 3.5-5.3 [facility] Comment on above: Performed By: #### 2 4323-8 #### FRIDA JALLOH ([id number]) [facility] ([facility]) [address] [place] [address] Protein [Mass/Vol] 6.9 g/dL Normal 6.4-8.2 [facility] Comment on above: Performed By: #### 2 4323-8 #### FRIDA JALLOH ([id number]) [facility] ([facility]) [address] [place] [address] Sodium [Moles/Vol] 137 mmol/L Normal 136-145 [facility] Comment on above: Performed By: #### 2 4323-8 #### FRIDA JALLOH ([id number]) [facility] ([facility]) [address] [place] [address] 02432 Urea nitrogen [Mass/Vol] 20 mg/dL Normal 6-23 [facility] Comment on above: Performed By: #### 2 4323-8 #### FRIDA JALLOH ([id number]) [facility] ([facility]) [address] [place] [address] 21319 Lipid 1996 panelon 4 Cholesterol [Mass/Vol] 90 mg/dL Normal 0-199 [facility] Comment on above: Result Comment: Age Desirable Borderline High High 0-19 Y 0 - 169 170 - 199 >/= 200 20-24 Y 0 - 189 190 - 224 >/= 225 >24 Y 0 - 199 200 - 239 >/= 240 All ranges are based on fasting samples. Specific therapeutic targets will vary based on patient-specific cardiac risk. Pediatric guidelines reference:Pediatrics 2011, 128(S5).Adult guidelines reference: NCEP ATPIII Guidelines,BULL 2001, 258:2486-97 Venipuncture immediately after or during the administration of Metamizole may lead to falsely low results. Testing should be performed immediately prior to Metamizole dosing. Performed By: #### 2 4331-1 #### FRIDA JALLOH ([id number]) [facility] ([facility]) [address] [place] [address] 59915 Cholesterol in HDL [Mass/Vol] 40.0 mg/dL Normal [facility] Comment on above: Result Comment: Age Very Low Low Normal High 0-19 Y < 35 < 40 40-45 ---- 20-24 Y ---- < 40 >45 ---- >24 Y ---- < 40 40-60 >60 Performed By: #### 2 4331-1 #### FRIDA JALLOH ([id number]) [facility] ([facility]) [facility] [place] [address] Cholesterol in LDL [Mass/Vol] 43 mg/dL Normal <=99 [facility] Comment on above: Result Comment: Near Borderline AGE Desirable Optimal High High Very High 0-19 Y 0 - 109 --- 110-129 >/= 130 ---- 20-24 Y 0 - 119 --- 120-159 >/= 160 ---- >24 Y 0 - 99 100-129 130-159 160-189 >/=190 Performed By: #### 2 4331-1 #### FRIDA JALLOH ([id number]) [facility] ([facility]) [address] [place] [address] 72704 Cholesterol in VLDL [Mass/Vol] 7 mg/dL Normal 0-40 [facility] Comment on above: Performed By: #### 2 4331-1 #### FRIDA JALLOH ([id number]) [facility] ([facility]) [address] [place] [address] 28202 CHOLESTEROL/HDL RATIO 2.3 Normal [facility] Comment on above: Result Comment: Ref Values Desirable < 3.4 High Risk > 5.0 Performed By: #### 2 4331-1 #### FRIDA JALLOH ([id number]) [facility] ([facility]) [address] [place] [address] 21760 NON HDL CHOLESTEROL 50 mg/dL Normal 0-149 [facility] Comment on above: Result Comment: Age Desirable Borderline High High Very High 0-19 Y 0 - 119 120 - 144 >/= 145 >/= 160 20-24 Y 0 - 149 150 - 189 >/= 190 ---- >24 Y 30 mg/dL above LDL Cholesterol goal Performed By: #### 2 4331-1 #### FRIDA JLALOH ([id number]) [facility] ([facility]) [facility] [place] [address] Triglyceride [Mass/Vol] 36 mg/dL Normal 0-149 [facility] Comment on above: Result Comment: Age Desirable Borderline High High Very High 0 D-90 D 19 - 174 ---- ---- ---- 91 D- 9 Y 0 - 74 75 - 99 >/= 100 ---- 10-19 Y 0 - 89 90 - 129 >/= 130 ---- 20-24 Y 0 - 114 115 - 149 >/= 150 ---- >24 Y 0 - 149 150 - 199 200- 499 >/= 500 Venipuncture immediately after or during the administration of Metamizole may lead to falsely low results. Testing should be performed immediately prior to Metamizole dosing. Performed By: #### 2 4331-1 #### FRIDA JALLOH ([id number]) [facility] ([facility]) [address] [place], [place] [address] PSA, TOTAL AND FREEon 2023 Free PSA [Mass/Vol] 1.6 ng/mL Normal [facility] Comment on above: Performed By: #### P SAFT #### [facility]) ([id number]) [address] [place] [address] Free PSA/Total PSA [Mass fraction] 23 % Normal [facility] Comment on above: Result Comment: INTE RPRETIVE INFORMATION: Prostate Specific Antigen, Free Percentage [facility] uses the [employer] Free PSA electrochemiluminescent immunoassay method in conjunction with the Karishma PSA electrochemiluminescent immunoassay method to determine the free PSA percentage. Values obtained with different assay methods should not be used interchangeably. The free PSA percentage is an aid in distinguishing prostate cancer from benign prostatic conditions in individuals with a prostate age 50 years and older with a total PSA between 3 and 10 ng/mL and negative digital rectal examination findings. Prostatic biopsy is required for the diagnosis of cancer. In patients with total PSA concentrations of 4-10 ng/mL, the probability of finding prostate cancer on needle biopsy by age in years is: %fPSA 50-59 60-69 70 or older 0 - 10% 49% 58% 65% 11 - 18% 27% 34% 41% 19 - 25% 18% 24% 30% Greater than 25% 9% 12% 16% Other factors may help determine the actual risk of prostate cancer in individual patients. Performed By: [facility] [address] [place] [address] Percolator Operator: Danial Alvarez MD, PhD CLIA Number: [id number] Performed By: #### P SAFT #### [facility] ([id number]) [address] [place] [address] Prostate specific Ag IA [Mass/Vol] 7.1 ng/mL High 0.0-4.0 [facility] Comment on above: Result Comment: INTE RPRETIVE INFORMATION: Prostate Specific Antigen The Karishma PSA electrochemiluminescent immunoassay is used. Results obtained with different test methods or kits cannot be used interchangeably. The Karishma PSA method is approved for use as an aid in the detection of prostate cancer when used in conjunction with a digital rectal exam in individuals with a prostate age 50 years and older. The Karishma PSA is also indicated for the serial measurement of PSA to aid in the prognosis and management of prostate cancer patients. Elevated PSA concentrations can only suggest the presence of prostate cancer until biopsy is performed. PSA concentrations can also be elevated in benign prostatic hyperplasia or inflammatory conditions of the prostate. PSA is generally not elevated in healthy individuals or individuals with nonprostatic carcinoma. Performed By: #### P SAFT #### [facility]) ([id number]) [address] [place] [address] Lower extremity venous duple x lefton 08-22-2023 [place] [address] ext-[phone], Vascular Lab Report VASC US LOWER EXTREMITY VENOUS DUPLEX LEFT Patient Name: PETE Maki Physician: [id number] Romie Akbar MD, RPVI Study Date: 08/22/2023 Ordering Provider: [id number] ZORAN ARCEO MRN/PID: [id number] Fellow: Technologist: Jody Ramos RVT/AB Date of /Age: 10 1945 / 78 years Technologist 2: Gender: M Admission Status: Outpatient Location Performed: [facility] Diagnosis/ICD: Localized (leg) edema-R60.0 CPT Codes: 63519 Peripheral venous duplex scan for DVT Limited CONCLUSIONS: Right Lower Venous: Right common femoral vein is negative for deep vein thrombus. Left Lower Venous: No evidence of acute deep vein thrombus visualized in the left lower extremity. Imaging & Doppler Findings: Right Compressible Thrombus Flow Distal External Iliac Yes None Spontaneous/Phasic CFV Yes None Spontaneous/Phasic Left Compress Thrombus Flow Distal External Iliac Yes None Spontaneous/Phasic CFV Yes None Spontaneous/Phasic PFV Yes None FV Proximal Yes None Spontaneous/Phasic FV Mid Yes None FV Distal Yes None Popliteal Yes None Spontaneous/Phasic Peroneal Yes None PTV Yes None [id number] Romie Akbar MD, RPVI Final Romie Anderson M D - 08/22/2023 [place] [address] ext-[phone], Vascular Lab Report VASC US LOWER EXTREMITY VENOUS DUPLEX LEFT Patient Name: PETE Maki Physician: [id number] Romie Akbar MD, RPVI Study Date: 08/22/2023 Ordering Provider: [id number] ZORAN ARCEO MRN/PID: [id number] Fellow: Technologist: Jody Ramos RVT/ Date of /Age: 10 1945 / 78 years Technologist 2: Gender: M Admission Status: Outpatient Location Performed: [facility] Diagnosis/ICD: Localized (leg) edema-R60.0 CPT Codes: 45439 Peripheral venous duplex scan for DVT Limited CONCLUSIONS: Right Lower Venous: Right common femoral vein is negative for deep vein thrombus. Left Lower Venous: No evidence of acute deep vein thrombus visualized in the left lower extremity. Imaging & Doppler Findings: Right Compressible Thrombus Flow Distal External Iliac Yes None Spontaneous/Phasic CFV Yes None Spontaneous/Phasic Left Compress Thrombus Flow Distal External Iliac Yes None Spontaneous/Phasic CFV Yes None Spontaneous/Phasic PFV Yes None FV Proximal Yes None Spontaneous/Phasic FV Mid Yes None FV Distal Yes None Popliteal Yes None Spontaneous/Phasic Peroneal Yes None PTV Yes None [id number] Romie Akbar MD, LEE Final [facility] Work Phone: Radiology Study observation (narrative) [facility] Work Phone: Lower extremity venous duple x leftOrdered By: Romie Akbar on 08-22-2023 [facility] Work Phone: VASC US LOWER EXTREMITY VENO US DUPLEX LEFTon 08-22-2023 VASC US LOWER EXTREMITY [place] [address] ext-[phone], Vascular Lab Report VAS US LOWER EXTREMITY VENOUS DUPLEX LEFT Patient Name: PETE Maki Physician: [id number] Romie Akbar MD, LEE Study Date: 08/22/2023 Ordering Provider: [id number] ZORAN ARCEO MRN/PID: [id number] Fellow: Technologist: Jody Ramos RVT/ Date of /Age: 10 1945 / 78 years Technologist 2: Gender: M Admission Status: Outpatient Location Performed: [facility] Diagnosis/ICD: Localized (leg) edema-R60.0 CPT Codes: 57001 Peripheral venous duplex scan for DVT Limited CONCLUSIONS: Right Lower Venous: Right common femoral vein is negative for deep vein thrombus. Left Lower Venous: No evidence of acute deep vein thrombus visualized in the left lower extremity. Imaging & Doppler Findings: Right Compressible Thrombus Flow Distal External Iliac Yes None Spontaneous/Phasic CFV Yes None Spontaneous/Phasic Left Compress Thrombus Flow Distal External Iliac Yes None Spontaneous/Phasic CFV Yes None Spontaneous/Phasic PFV Yes None FV Proximal Yes None Spontaneous/Phasic FV Mid Yes None FV Distal Yes None Popliteal Yes None Spontaneous/Phasic Peroneal Yes None PTV Yes None [id number] Romie Akbar MD, RPVI Final Normal [facility] Prostate specific Agon 07-29 Prostate specific Ag [Mass/Vol] 7.26 ng/mL High <=4.00 [facility] Comment on above: Order Comment: The F DA requires that the method used for PSA assay be reported to the physician. Values obtained with different assay methods must not be used interchangeably. This test was performed at [facility] using the [employer] PSA assay is a two-site immunoenzymatic sandwich assay. The assay is approved for measurement of prostate-specific antigen (PSA)in serum and may be used in conjunction with a digital rectal examination in men 50 years and older as an aid in detection of prostate cancer. 3-Gqbda-uqtzsxiez inhibitors (e.g. Proscar, Finasteride, Avodart, Dutasteride and Tila) for the treatment of BPH have been shown to lower PSA levels by an average of 50% after 6 months of treatment. Performed By: #### 2 857-1 #### FRIDA JALLOH ([id number]) [facility] ([facility]) [address] [place] [address] Comprehensive metabolic 2000 panelon 05-07-2023 Albumin BCP dye [Mass/Vol] 3.9 g/dL Normal 3.4-5.0 [facility] Comment on above: Performed By: #### 2 4323-8 #### FRIDA JALLOH ([id number]) [facility] ([facility]) [address] [place], [place] [address] ALP [Catalytic activity/Vol] 77 U/L Normal 33-136 [facility] Comment on above: Performed By: #### 2 4323-8 #### FRIDA JALLOH ([id number]) [facility] ([facility]) [address] [place], [place] [address] ALT With P-5'-P [Catalytic activity/Vol] 20 U/L Normal 10-52 [facility] Comment on above: Result Comment: Nadia ents treated with Sulfasalazine may generate falsely decreased results for ALT. Performed By: #### 2 4322-8 #### FRIDA JALLOH ([id number]) [facility] ([facility]) [address] [place] [address] Anion gap [Moles/Vol] 10 mmol/L Normal 10-20 [facility] Comment on above: Performed By: #### 2 432-8 #### FRIDA JALLOH ([id number]) [facility] ([facility]) [address] [place] [address] AST With P-5'-P [Catalytic activity/Vol] 19 U/L Normal 9-39 [facility] Comment on above: Performed By: #### 2 4322-8 #### FRIDA JALLOH ([id number]) [facility] ([facility]) [address] [place] [address] Bilirubin [Mass/Vol] 0.7 mg/dL Normal 0.0-1.2 [facility] Comment on above: Performed By: #### 2 4322-8 #### FRIDA JALLOH ([id number]) [facility] ([facility]) [address] [place] [address] Calcium [Mass/Vol] 10.2 mg/dL Normal 8.6-10.3 [facility] Comment on above: Performed By: #### 2 4322-8 #### FRIDA JALLOH ([id number]) [facility] ([facility]) [address] [place] [address] Chloride [Moles/Vol] 104 mmol/L Normal 98-107 [facility] Comment on above: Performed By: #### 2 4322-8 #### FRIDA JALLOH ([id number]) [facility] ([facility]) [address] [place] [address] CO2 [Moles/Vol] 31 mmol/L Normal 21-32 [facility] Comment on above: Performed By: #### 2 4322-8 #### FRIDA JALLOH ([id number]) [facility] ([facility]) [address] [place] [address] Creatinine [Mass/Vol] 1.32 mg/dL High 0.50-1.30 [facility] Comment on above: Performed By: #### 2 432-8 #### FRIDA JALLOH ([id number]) [facility] ([facility]) [address] [place] [address] 43836 Glomerular filtration rate/1.73 sq M.predicted 55 mL/min/1.73m*2 Low >60 [facility] Comment on above: Result Comment: Calc ulations of estimated GFR are performed using the 2020 CKD-EPI Study Refit equation without the race variable for the IDMS-Traceable creatinine methods. https://jasn.asnjournals.org/content/early//ASN.3048340331 Performed By: #### 2 432-8 #### FRIDA JALLOH ([id number]) [facility] ([facility]) [address] [place] [address] 67804 Glucose [Mass/Vol] 107 mg/dL High 74-99 [facility] Comment on above: Performed By: #### 2 4322-8 #### FRIDA JALLOH ([id number]) [facility] ([facility]) [address] [place] [address] 49152 Potassium [Moles/Vol] 3.9 mmol/L Normal 3.5-5.3 [facility] Comment on above: Performed By: #### 2 432-8 #### FRIDA JALLOH ([id number]) [facility] ([facility]) [address] [place] [address] 13954 Protein [Mass/Vol] 6.5 g/dL Normal 6.4-8.2 [facility] Comment on above: Performed By: #### 2 432-8 #### FRIDA JALLOH ([id number]) [facility] ([facility]) [address] [place] [address] 94254 Sodium [Moles/Vol] 141 mmol/L Normal 136-145 [facility] Comment on above: Performed By: #### 2 4323-8 #### FRIDA JALLOH ([id number]) [facility] ([facility]) [address] [place] [address] 74987 Urea nitrogen [Mass/Vol] 20 mg/dL Normal 6-23 [facility] Comment on above: Performed By: #### 2 4323-8 #### GALICIA YEIMI ([id number]) [facility] ([facility]) [address] [place] [address] 16250 HbA1c (Bld) [Mass fraction]o n 05-07-2023 Average glucose Estimated from glycated hemoglobin (Bld) [Mass/Vol] 114 mg/dL Normal Not Established [facility] Comment on above: Order Comment: Diagn osis of Diabetes-Adults Non-Diabetic: < or = 5.6% Increased risk for developing diabetes: 5.7-6.4% Diagnostic of diabetes: > or = 6.5% Monitoring of Diabetes Age (y)....................... Therapeutic Goal (%) Adults: >18.........................<7.0 Pediatrics: 13-18...................<7.5 Pediatrics: 7-12....................<8.0 Pediatrics: 0-6..................... 7.5-8.5 [employer] [employer]. Diabetes Care 33(S1), Apr 2009 Performed By: #### 4 [id number] #### GALICIA YEIMI ([id number]) [facility] ([facility]) [address] [place] [id number] Hemoglobin A1c/Hemoglobin.to felisha 05-07-2023 HbA1c (Bld) [Mass fraction] 5.6 % Normal see below [facility] Comment on above: Order Comment: Diagn osis of Diabetes-Adults Non-Diabetic: < or = 5.6% Increased risk for developing diabetes: 5.7-6.4% Diagnostic of diabetes: > or = 6.5% Monitoring of Diabetes Age (y)....................... Therapeutic Goal (%) Adults: >18.........................<7.0 Pediatrics: 13-18...................<7.5 Pediatrics: 7-12....................<8.0 Pediatrics: 0-6..................... 7.5-8.5 [employer]. Diabetes Care 33(S1), Apr 2009 Performed By: #### 4 [id number] #### GALICIA YEIMI ([id number]) [facility] ([facility]) [address] [place], [place] [id number] CHEST 2 VIEW PA AND LATon CHEST 2 VIEW PA AND LAT Patient Name: PETE ODONNELL STUDY: TH CHEST 2 VIEW PA AND LAT; 11/25/2022 9:53 am INDICATION: cough. COMPARISON: Two views of the chest, February 2021 r ACCESSION NUMBER(S): [id number] ORDERING CLINICIAN: ZORAN ARCEO TECHNIQUE: Frontal and lateral views of the chest FINDINGS: LINES AND TUBES: n/a HEART AND MEDIASTINUM: Cardiac silhouette size: Within normal limits Thoracic aorta: Within expected limits Allie and nonvascular: within normal limits Other: n/a PULMONARY VESSELS: Within normal limits; no sign of edema LUNGS AND AIRWAYS: Clear; no acute airspace disease PLEURA: Effusion: Both sides negative Pneumothorax: Both sides negative Other: n/a BONES: No acute findings IMPRESSION: NO ACUTE DISEASE IN THE CHEST Electronically signed by: MARY PERALTA MD Normal [facility] BASIC METABOLIC PANELon 08 Anion gap [Moles/Vol] 9 mmol/L Low 10 - 20 [facility] Comment on above: Performed By: #### B MP #### [address] [address] Calcium [Mass/Vol] 9.6 mg/dL Normal 8.6 - 10.3 [facility] Comment on above: Performed By: #### B MP #### [address] [address] Chloride [Moles/Vol] 105 mmol/L Normal 98 - 107 [facility] Comment on above: Performed By: #### B MP #### [address] [address] Creatinine [Mass/Vol] 1.04 mg/dL Normal 0.50 - 1.30 [facility] Comment on above: Performed By: #### B MP #### [address] [address] GFR/1.73 sq M.predicted among non-blacks MDRD (S/P/Bld) [Vol rate/Area] 73 mL/min/{1.73_m2} Normal >90 [facility] Comment on above: Result Comment: CALC ULATIONS OF ESTIMATED GFR ARE PERFORMED USING THE 2020 CKD-EPI STUDY REFIT EQUATION WITHOUT THE RACE VARIABLE FOR THE IDMS-TRACEABLE CREATININE METHODS. https://jasn.asnjournals.org/content//ASN.8759292663 Performed By: #### B MP #### [address] [address] Glucose [Mass/Vol] 187 mg/dL High 74 - 99 [facility] Comment on above: Performed By: #### B MP #### [address] [address] HCO3 (Bld) [Moles/Vol] 28 mmol/L Normal 21 - 32 [facility] Comment on above: Performed By: #### B MP #### [address] [address] Potassium [Moles/Vol] 3.3 mmol/L Low 3.5 - 5.3 [facility] Comment on above: Performed By: #### B MP #### [address] [address] Sodium [Moles/Vol] 139 mmol/L Normal 136 - 145 [facility] Comment on above: Performed By: #### B MP #### [address] [address] Urea nitrogen [Mass/Vol] 17 mg/dL Normal 6 - 23 [facility] Comment on above: Performed By: #### B MP #### [address] [place] [address] Lab Specimen Source Normal [facility] Comment on above: Performed By: #### B MP #### [address] [place] [address] Medicare Annual Wellness Vis iton 05-30-2022 Medicare Annual Wellness Visit *Chief Complaint medck and AWV History of Present Illness The patient is being seen for the subsequent annual wellness visit. Past Medical, Surgical and Family History: reviewed and updated in chart. Medications and Supplements: Review of all medications by a prescribing practitioner or clinical pharmacist (such as prescriptions, OTCs, herbal therapies and supplements) documented in the medical record. No, the patient is not using opioids. Patient Self Assessment of Health Status: good. Tobacco use: Non-User Alcohol use: Non-User Illicit drug use: Non-User Current diet: Heart Healthy Diet, does consume adequate fluids and does consume caffeine. Exercise Frequency: regularly. Depression/Suicide Screening: . During the past 2 weeks, the patient has not felt down, depressed or hopeless. During the past 2 weeks, the patient has not felt little interest or pleasure in doing things. Hearing Impairment: Patient has slight hearing impairment, on the right. Cognitive Impairment: No cognitive impairment observed, patient or family reported cognitive impairment . word finding and names. Bathing: performs independently. Dressing: performs independently. Walking: performs independently. Managing Finances: performs independently. Shopping: performs independently. Managing Medications: performs independently. Housework / Basic Home Maintenance: performs independently. Falls Risk Screening:. PETE has fallen in the last 6 months. His fall did not result in injury. Care Plan Low/Moderate Risk: Regular physical activity such as walking, water aerobics or ankit chi to improve strength, balance, coordination and flexibility. Wear appropriate, sensible shoe wear. Remove fall hazards at home such as loose rugs, obstacles, use non-slip surface in bath or shower. Keep living space well lit. (has stumbles in his barn tripping over things) Home safety risk factors: no grab bars in the bathroom and no handrails on the stairs. Advance directives:. Patient has living will. Patient has healthcare POA. Patient's End of Life Decisions: End of life decisions were reviewed with the patient. I agree to follow the patient's decisions. Additional Information: surrogate - Jessica. Injuries from horse tramping him October 24. Doing much better in the wrist, ribs and Jaw. Now with pain in left ribs and found to have fracture of 8. Needing meds for a few days [place] Acquired adrenal hyperplasia - normal electrolytes in May. Actinic keratoses - Has been to [facility]. Cream to use on hands. 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 Allergic rhinitis per ENT. Also noted deviated septum. Flonase helps. Still plugged on one side. Dr Dennis saw him for this discussed surgery. But he has moved so will follow up with him. Benign prostatic hypertrophy - nocturia x 2. . No daytime urgency. Did not try the Flomax. 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 Some pain at times and limits motion. Essential familial hyperlipidemia - Med works well without side effects. In May 2022 Essential hypertension - No Chest pain, Dyspnea, palpitations, numbness, weakness, claudications, or double vision/ loss of vision. No longer has headaches. Not lightheaded. Edema in both ankles when on feet a lot. Compression helps. No orthopnea. CMP WNL this time Except for CKD 3 with stable GFR 53 Gastroesophageal reflux disease - Tums on occasion. No HB, Melena, or hematochezia. Will hang up in esophagus if he eats too fast or too dry. Headache when stressed but generally doing OK Impotence - Viagra not as effective at 50 so will try 100. Not really needing now Parkinsons - Mainly tremor [facility] thinks from [place]. Does not affect eating writing. Left only like when holding tea. Stress and cold will worsen. No stiffness of arms. Right knee pain injured when moving equipment. Not swollen. Pain with walking medially. Has discussed injections and TKR. Gel helps PSA 05/27/22 4.2. Will check next time. 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 Normal [employer] XR RIBS/CHEST 3V AP RIB/OBLS /CXR LEFTon 05-28-2022 [facility] XR Ribs - left Views and Margot [address] PAon 05-28-2022 IMPRESSION: Left basilar atelectasis. Fracture of the lateral left eighth rib. Manager Game: [employer] Transcribe Date/Time: May 28 2022 2:59P Dictated by : NENA RAMOS MD This examination was interpreted and the report reviewed and electronically signed by: NENA RAMOS MD on May 28 2022 3:05PM [facility] DIVISION OF RADIOLOGY * * *Final Report* * * DATE OF EXAM: May 28 2022 2:52PM WOX 5243 - XR RIB/CHST 3V AP RIB/OBL/CHST L / PROCEDURE REASON: Rib pain * * * * Physician Interpretation * * * * EXAMINATION: X-ray chest and left ribs Clinical History: Rib pain M: XC1_4 Comparison: Chest x-ray 02/18/2018 RESULT: Lines, tubes, and devices: None. Lungs and pleura: Left basilar atelectasis. No pleural effusion or pneumothorax. Cardiomediastinal silhouette: Stable cardiac mediastinal silhouette. Musculoskeletal: Fracture of the lateral left eighth rib DIVISION OF RADIOLOGY Provider, Emmanuel Ledezma - 05/28/2022 * * *Final Report* * * DATE OF EXAM: May 28 2022 2:52PM WOX 5243 - XR RIB/CHST 3V AP RIB/OBL/CHST L / PROCEDURE REASON: Rib pain * * * * Physician Interpretation * * * * EXAMINATION: X-ray chest and left ribs Clinical History: Rib pain M: XC1_4 Comparison: Chest x-ray 02/18/2018 RESULT: Lines, tubes, and devices: None. Lungs and pleura: Left basilar atelectasis. No pleural effusion or pneumothorax. Cardiomediastinal silhouette: Stable cardiac mediastinal silhouette. Musculoskeletal: Fracture of the lateral left eighth rib IMPRESSION IMPRESSION: Left basilar atelectasis. Fracture of the lateral left eighth rib. Manager Game: [facility] Transcribe Date/Time: May 28 2022 2:59P Dictated by : NENA RAMOS MD This examination was interpreted and the report reviewed and electronically signed by: NENA RAMOS MD on May 28 2022 3:05PM EST [facility] Radiology Study observation (narrative) [facility] XR Ribs - left Views and Margot st PAOrdered By: [facility]cf Provider on 05-28-2022 [facility] CBCon 05-27-2022 Erythrocyte distribution width (RBC) [Ratio] 12.7 % Normal 11.5 - 14.5 [facility] Comment on above: Performed By: #### C BC #### [address] [address] Hematocrit (Bld) [Volume fraction] 45.3 % Normal 41.0 - 52.0 [facility] Comment on above: Performed By: #### C BC #### [address] [address] Hemoglobin (Bld) [Mass/Vol] 15.2 g/dL Normal 13.5 - 17.5 [facility] Comment on above: Performed By: #### C BC #### [address] [address] MCHC (RBC) [Mass/Vol] 33.6 g/dL Normal 32.0 - 36.0 [facility] Comment on above: Performed By: #### C BC #### [address] [address] MCV (RBC) [Entitic vol] 91 fL Normal 80 - 100 [facility] Comment on above: Performed By: #### C BC #### [address] [address] Platelets (Bld) [#/Vol] 332 10*3/uL Normal 150 - 450 [facility] Comment on above: Performed By: #### C BC #### [address] [address] RBC 4.98 x10E12/L Normal 4.50 - 5.90 [facility] Comment on above: Performed By: #### C BC #### [address] [address] WBC (Bld) [#/Vol] 8.2 10*3/uL Normal 4.4 - 11.3 [facility] Comment on above: Performed By: #### C BC #### [address] [address] COMPREHENSIVE PANELon 2022 Anion gap [Moles/Vol] 7 mmol/L Low 10 - 20 [facility] Comment on above: Performed By: #### C MP #### [address] [address] Chloride [Moles/Vol] 106 mmol/L Normal 98 - 107 [facility] Comment on above: Performed By: #### C MP #### [address] [address] HCO3 (Bld) [Moles/Vol] 33 mmol/L High 21 - 32 [facility] Comment on above: Result Comment: Conf irmed by repeat analysis Performed By: #### C MP #### [id number] Potassium [Moles/Vol] 4.0 mmol/L Normal 3.5 - 5.3 [facility] Comment on above: Performed By: #### C MP #### [address] [address] Sodium [Moles/Vol] 142 mmol/L Normal 136 - 145 [facility] Comment on above: Performed By: #### C MP #### [address] [address] Albumin [Mass/Vol] 4.0 g/dL Normal 3.4 - 5.0 [facility] Comment on above: Performed By: #### C MP #### [address] [address] ALP [Catalytic activity/Vol] 86 U/L Normal 33 - 136 [facility] Comment on above: Performed By: #### C MP #### [address] [address] ALT [Catalytic activity/Vol] 18 U/L Normal 10 - 52 [facility] Comment on above: Result Comment: Nadia ents treated with Sulfasalazine may generate falsely decreased results for ALT. Performed By: #### C MP #### [address] [address] AST [Catalytic activity/Vol] 18 U/L Normal 9 - 39 [facility] Comment on above: Performed By: #### C MP #### [address] [address] Bilirubin [Mass/Vol] 0.7 mg/dL Normal 0.0 - 1.2 [facility] Comment on above: Performed By: #### C MP #### [address] [address] Calcium [Mass/Vol] 10.1 mg/dL Normal 8.6 - 10.3 [facility] Comment on above: Performed By: #### C MP #### [address] [address] Creatinine [Mass/Vol] 1.38 mg/dL High 0.50 - 1.30 [facility] Comment on above: Performed By: #### C MP #### [address] [address] GFR/1.73 sq M.predicted among non-blacks MDRD (S/P/Bld) [Vol rate/Area] 52 mL/min/{1.73_m2} Abnormal >90 [facility] Comment on above: Result Comment: CALC ULATIONS OF ESTIMATED GFR ARE PERFORMED USING THE 2020 CKD-EPI STUDY REFIT EQUATION WITHOUT THE RACE VARIABLE FOR THE IDMS-TRACEABLE CREATININE METHODS. https://jasn.asnjournals.org/content/early//ASN.0564655927 Performed By: #### C MP #### [address] [address] Glucose [Mass/Vol] 107 mg/dL High 74 - 99 [facility] Comment on above: Performed By: #### C MP #### [address] [address] Protein [Mass/Vol] 6.8 g/dL Normal 6.4 - 8.2 [facility] Comment on above: Performed By: #### C MP #### [address] [address] Urea nitrogen [Mass/Vol] 18 mg/dL Normal 6 - 23 [facility] Comment on above: Performed By: #### C MP #### [address] [address] LIPID PANEL (CORONARY RISK 2 )on 05-27-2022 Cholesterol [Mass/Vol] 101 mg/dL Normal 0 - 199 [facility] Comment on above: Result Comment: . AGE DESIRABLE BORDERLINE HIGH HIGH 0-19 Y 0 - 169 170 - 199 >/= 200 20-24 Y 0 - 189 190 - 224 >/= 225 >24 Y 0 - 199 200 - 239 >/= 240 All ranges are based on fasting samples. Specific therapeutic targets will vary based on patient-specific cardiac risk. . Pediatric guidelines reference:Pediatrics 2011, 128(S5). Adult guidelines reference: NCEP ATPIII Guidelines, BULL 2001, 258:2486-97 . Venipuncture immediately after or during the administration of Metamizole may lead to falsely low results. Testing should be performed immediately prior to Metamizole dosing. Performed By: #### L IPID #### [address] [address] Cholesterol in HDL [Mass/Vol] 42.0 mg/dL Normal [facility] Comment on above: Result Comment: . AGE VERY LOW LOW NORMAL HIGH 0-19 Y < 35 < 40 40-45 ---- 20-24 Y ---- < 40 >45 ---- >24 Y ---- < 40 40-60 >60 . Performed By: #### L IPID #### [address] [address] Cholesterol in LDL [Mass/Vol] 47 mg/dL Normal 0 - 99 [facility] Comment on above: Result Comment: . NEAR BORD AGE DESIRABLE OPTIMAL HIGH HIGH VERY HIGH 0-19 Y 0 - 109 --- 110-129 >/= 130 ---- 20-24 Y 0 - 119 --- 120-159 >/= 160 ---- >24 Y 0 - 99 100-129 130-159 160-189 >/=190 . Performed By: #### L IPID #### [address] [address] Cholesterol in VLDL [Mass/Vol] 12 mg/dL Normal 0 - 40 [facility] Comment on above: Performed By: #### L IPID #### [address] [address] Cholesterol.total /Cholesterol in HDL [Mass ratio] 2.4 {ratio} Normal [facility] Comment on above: Result Comment: REF VALUES DESIRABLE < 3.4 HIGH RISK > 5.0 Performed By: #### L IPID #### [address] [address] Triglyceride [Mass/Vol] 62 mg/dL Normal 0 - 149 [facility] Comment on above: Result Comment: . AGE DESIRABLE BORDERLINE HIGH HIGH VERY HIGH 0 D-90 D 19 - 174 ---- ---- ---- 91 D- 9 Y 0 - 74 75 - 99 >/= 100 ---- 10-19 Y 0 - 89 90 - 129 >/= 130 ---- 20-24 Y 0 - 114 115 - 149 >/= 150 ---- >24 Y 0 - 149 150 - 199 200- 499 >/= 500 . Venipuncture immediately after or during the administration of Metamizole may lead to falsely low results. Testing should be performed immediately prior to Metamizole dosing. Performed By: #### L IPID #### [facility] [address] [place] [address] Laboratory - Chemistry and C hemistry - challengeon 05-27-2022 Albumin BCP dye [Mass/Vol] 4.0 g/dL 3.4 - 5.0 [facility] Work Phone: ALP [Catalytic activity/Vol] 86 U/L 33 - 136 [facility] Work Phone: ALT With P-5'-P [Catalytic activity/Vol] 18 U/L 10 - 52 [facility] Work Phone: Comment on above: Patients treated wit h Sulfasalazine may generate falsely decreased results for ALT. Anion gap [Moles/Vol] 7 mmol/L below low threshold 10 - 20 [facility] Work Phone: AST With P-5'-P [Catalytic activity/Vol] 18 U/L 9 - 39 [facility] Work Phone: Bilirubin [Mass/Vol] 0.7 mg/dL 0.0 - 1.2 [facility] Work Phone: Calcium [Mass/Vol] 10.1 mg/dL 8.6 - 10.3 [facility] Work Phone: Chloride [Moles/Vol] 106 mmol/L 98 - 107 [facility] Work Phone: CO2 [Moles/Vol] 33 mmol/L above high threshold 21 - 32 [facility] Work Phone: Comment on above: Confirmed by repeat analysis Creatinine [Mass/Vol] 1.38 mg/dL above high threshold See Below [facility] Work Phone: Comment on above: Reference Range: 0.5 0 - 1.30 Glucose [Mass/Vol] 107 mg/dL above high threshold 74 - 99 [facility] Work Phone: Potassium [Moles/Vol] 4.0 mmol/L 3.5 - 5.3 [facility] Work Phone: Protein [Mass/Vol] 6.8 g/dL 6.4 - 8.2 [facility] Work Phone: Sodium [Moles/Vol] 142 mmol/L 136 - 145 [facility] Work Phone: Urea nitrogen [Mass/Vol] 18 mg/dL 6 - 23 [facility] Work Phone: Laboratory - Hematology and Cell countson 05-27-2022 Erythrocyte distribution width (RBC) [Ratio] 12.7 % See Below [facility] Work Phone: Comment on above: Reference Range: 11. 5 - 14.5 Hematocrit (Bld) [Volume fraction] 45.3 % See Below [facility] Work Phone: Comment on above: Reference Range: 41. 0 - 52.0 Hemoglobin (Bld) [Mass/Vol] 15.2 g/dL See Below [facility] Work Phone: Comment on above: Reference Range: 13. 5 - 17.5 MCHC (RBC) [Mass/Vol] 33.6 g/dL See Below [facility] Work Phone: Comment on above: Reference Range: 32. 0 - 36.0 MCV (RBC) [Entitic vol] 91 fL 80 - 100 [facility] Work Phone: Platelets (Bld) [#/Vol] 332 10*3/uL 150 - 450 [facility] Work Phone: RBC (Bld) [#/Vol] 4.98 {x10E12/L} See Below [facility] Work Phone: Comment on above: Reference Range: 4.5 0 - 5.90 WBC (Bld) [#/Vol] 8.2 10*3/uL 4.4 - 11.3 [facility] Work Phone: Lipid Panelon 05-27-2022 Cholesterol [Mass/Vol] 101 mg/dL 0 - 199 [facility] Work Phone: Comment on above: . AGE DESIRABLE BORD [place] HIGH HIGH 0-19 Y 0 - 169 170 - 199 >/= 200 20-24 Y 0 - 189 190 - 224 >/= 225 >24 Y 0 - 199 200 - 239 >/= 240 All ranges are based on fasting samples. Specific therapeutic targets will vary based on patient-specific cardiac risk.. Pediatric guidelines reference:Pediatrics 2011, 128(S5). Adult guidelines reference: NCEP ATPIII Guidelines, BULL 2001, 258:2486-97. Venipuncture immediately after or during the administration of Metamizole may lead to falsely low results. Testing should be performed immediately prior to Metamizole dosing. Cholesterol in HDL [Mass/Vol] 42.0 mg/dL [facility] Work Phone: Comment on above: . AGE VERY LOW LOW N ORMAL HIGH 0-19 Y < 35 < 40 40-45 ---- 20- 24 Y ---- < 40 >45 ---- >24 Y ---- < 40 40-60 >60. Cholesterol in LDL [Mass/Vol] 47 mg/dL 0 - 99 [facility] Work Phone: Comment on above: . NEAR BORD AGE ORLY RABLE OPTIMAL HIGH HIGH VERY HIGH 0-19 Y 0 - 109 --- 110-129 >/= 130 ---- 20-24 Y 0 - 119 --- 120-159 >/= 160 ---- >24 Y 0 - 99 100-129 130-159 160-189 >/=190. Cholesterol.total /Cholesterol in HDL [Mass ratio] 2.4 {ratio} [facility] Work Phone: Comment on above: REF VALUESDESIRABLE < 3.4HIGH RISK > 5.0 Triglyceride [Mass/Vol] 62 mg/dL 0 - 149 [facility] Work Phone: Comment on above: . AGE DESIRABLE BORD [place] HIGH HIGH VERY HIGH 0 D-90 D 19 - 174 ---- ---- ----91 D- 9 Y 0 - 74 75 - 99 >/= 100 ---- 10-19 Y 0 - 89 90 - 129 >/= 130 ---- 20-24 Y 0 - 114 115 - 149 >/= 150 ---- >24 Y 0 - 149 150 - 199 200- 499 >/= 500. Venipuncture immediately after or during the administration of Metamizole may lead to falsely low results. Testing should be performed immediately prior to Metamizole dosing. Lipid Panel 12 mg/dL 0 - 40 [facility] Work Phone: No Panel Informationon 05-27 52 {mL/min/1.73m2} Abnormal >90 [facility] Work Phone: Comment on above: CALCULATIONS OF GOOD MATED GFR ARE PERFORMED USING THE 2020 CKD-EPI STUDY REFIT EQUATION WITHOUT THE RACE VARIABLE FOR THE IDMS-TRACEABLE CREATININE METHODS.https://jasn.asnjournals.org/content/early//ASN.20 68196188 PROSTATE SPEC.AG,SCREENon PROSTATE SPEC.AG,SCREEN 4.20 ng/mL High 0.00 - 4.00 [facility] Comment on above: Result Comment: The FDA requires that the method used for PSA assay be reported to the physician. Values obtained with different assay methods must not be used interchangeably. This test was performed at [facility] using the [employer] w/ch PSA assay is a two-site immunoenzymatic sandwich assay. The assay is approved for measurement of prostate-specific antigen (PSA)in serum and may be used in conjunction with a digital rectal examination in men 50 years and older as an aid in detection of prostate cancer. 6-Adbiw-vzbqydbaa inhibitors (e.g. Proscar, Finasteride, Avodart, Dutasteride and Tila) for the treatment of BPH have been shown to lower PSA levels by an average of 50% after 6 months of treatment. Performed By: #### P [facility] #### [id number] [place] [address] Prostate Spec.Ag, Screenon 0 05-27-2022 Prostate specific Ag [Mass/Vol] 4.20 ng/mL above high threshold See Below [facility] Work Phone: Comment on above: Reference Range: 0.0 0 - 4.00The FDA requires that the method used for PSA assay be reported to the physician. Values obtained with different assay methods must not be used interchangeably. This testwas performed at [facility] using the [employer] PSA assay is a two-site immunoenzymatic sandwich assay. The assay is approved for measurement of prostate-specific antigen (PSA)in serum and may be used in conjunction with a digital rectal examination in men 50 years and older as an aid in detection of prostate cancer.9-Jbluj-vsggzidvz inhibitors (e.g. Proscar, Finasteride, Avodart, Dutasteride and Tila) for the treatment of BPH have been shown to lower PSA levels by an average of 50% after 6 months of treatment. Established Visit (Orthopaed ic Surgery)on 01-08-2022 Established Visit (Orthopaedic Surgery) Diagnoses/Problems Assessed Acute pain of right knee (719.46) (M25.561) Primary osteoarthritis of right knee (715.16) (M17.11) Patient Discussion/Summary By signing my name below, I, Corrie Roper, attest that this documentation has been prepared under the direction and in the presence of Dr. Yovani Spears. All medical record entries made by the Scribe were at my direction and personally dictated by me. I have reviewed the chart and agree that the record accurately reflects my personal performance of the history, physical exam, discussion and plan. Provider Impressions Assessment- right knee pain, right knee osteoarthritis Plan-patient has seemed to have done well since her previous injection his symptoms are relatively well controlled he does have to be careful with his activities but he does not have the pain or discomfort that he did previously. He is altering his activity level he wants to hold off on an injection for the time being if his symptoms worsen he will consider corticosteroid injection at that point This note has been created with voice recognition software. Please be aware that there may be grammatical or contextual errors due to the use of the software. Chief Complaint 3-4 month follow-up for re-evaluation of right knee pain (OA) as he was previously seen in office in 08/2021 in which a corticosteroid injection was administered into the right knee. He states overall symptoms of pain has significantly reduced since the injection. 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 History of Present Illness Patient is a pleasant 76-year-old male presenting today for follow up with regards to his right knee pain. Patient was previously seen in office on 09/04/2021 and was administered a corticosteroid injection to the right knee. He reports the previous injection was well tolerated and states his overall symptoms of pain and discomfort have significantly reduced. He is pleased with the continued relief and would like to delay intervention until he becomes increasingly symptomatic again. He does continue to have mild discomfort, describing his pain to fluctuate and increase with activity. He has been using OTC topical Biofreeze that he reports to be tolerating well. 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 Review of Systems Constitutional: no fever, no chills, not feeling tired, no recent weight gain and no recent weight loss. ENT: no nosebleeds. Cardiovascular: no chest pain. Respiratory: no shortness of breath and no cough. Gastrointestinal: no abdominal pain, no nausea, no diarrhea and no vomiting. Musculoskeletal: no arthralgias and as noted in HPI. Integumentary: no rashes and no skin wound. Neurological: no headache. Psychiatric: no depression and no sleep disturbances. Endocrine: no muscle cramps. Hematologic/Lymphatic: swollen glands, but no tendency for easy bruising. Active Problems Problems Acquired adrenal hyperplasia (255.8) (E27.8) Actinic keratosis (702.0) (L57.0) Acute pain of right knee (719.46) (M25.561) Atherosclerotic plaque (440.9) (I70.90) BPH (benign prostatic hyperplasia) (600.00) (N40.0) Cervical spondylosis without myelopathy (721.0) (M47.812) Constipation, acute (564.00) (K59.00) Deviated nasal septum (470) (J34.2) Distended bladder (596.89) (N32.89) Encounter for immunization (V03.89) (Z23) Essential familial hyperlipidemia (272.2) (E78.49) GERD (gastroesophageal reflux disease) (530.81) (K21.9) Headache, temporal (784.0) (R51.9) HTN (hypertension) (401.9) (I10) Hypertrophy of nasal turbinates (478.0) (J34.3) Impotence, 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) Lymphedema of both lower extremities (457.1) (I89.0) Medicare annual wellness visit, subsequent (V70.0) (Z00.00) Medication management (V58.69) (Z79.899) Nasal vestibulitis (478.19) (J34.89) Overweight with body mass index (BMI) of 27 to 27.9 in adult (278.02,V85.23) (E66.3,Z68.27) Primary osteoarthritis of right knee (715.16) (M17.11) Rhinitis, nonallergic, chronic (472.0) (J31.0) Right knee pain (719.46) (M25.561) Screening PSA (prostate specific antigen) (V76.44) (Z12.5) 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) (G20) Tinnitus of both ears (388.30) (H93.13) Past Medical History Problems History of Abrasion, wrist w/o infection (913.0) (S60.819A) Resolved Date: 10 Dec 2021 History of Body mass index (BMI) of 26.0 to 26.9 in adult (V85.22) (Z68.26) Resolved Date: 04 Jun 2021 History of Contusion of left wrist, initial encounter (923.21) (S60.212A) Resolved Date: 10 Dec 2021 History of COVID-19 virus infection (079.89) (U07.1) Resolved Date: 04 Jun 2021 History of elevated prostate specific antigen (PSA) (V13.89) (Z87.898) Resolved Date: 27 Nov 2020 History of pneumonia (V12.61) (Z87.01) Resolved Date: 27 Feb 2021 History of Medicare annual wellness visit, initial (V70.0) (Z00.00) Resolved Date: 04 Jun 2021 History (more content not included)... Normal [employer] Tobacco Screening.on 022 Fall risk assessment a) No falls within the last year [facility] [address] Work Phone: Tobacco use status [facility] b) No [facility] [address] Work Phone: Office Visiton 12-10-2021 Follow-up visit Diagnoses/Problems Encounter for preventive health examination (V70.0) (Z00.00) Deviated nasal septum (470) (J34.2) Rhinitis, nonallergic, chronic (472.0) (J31.0) BPH (benign prostatic hyperplasia) (600.00) (N40.0) History of Abrasion, wrist w/o infection (913.0) (S60.819A) Acquired adrenal hyperplasia (255.8) (E27.8) Actinic keratosis (702.0) (L57.0) Cervical spondylosis without myelopathy (721.0) (M47.812) Essential familial hyperlipidemia (272.2) (E78.49) HTN (hypertension) (401.9) (I10) GERD (gastroesophageal reflux disease) (530.81) (K21.9) Headache, temporal (784.0) (R51.9) Lymphedema of both lower extremities (457.1) (I89.0) History of Contusion of left wrist, initial encounter (923.21) (S60.212A) 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) (G20) Right knee pain (719.46) (M25.561) Impotence, 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) History of Rib contusion, left, initial encounter (922.1) (S20.212A) History of Struck by horse, initial encounter (E906.8) (W55.12XA) Screening PSA (prostate specific antigen) (V76.44) (Z12.5) Medication management (V58.69) (Z79.899) Orders Deviated nasal septum, Rhinitis, nonallergic, chronic Otolaryngology - Otology Referral Evaluation and Treatment Evaluate AND Treat Status: Hold For - Scheduling Requested for: [id number] Essential familial hyperlipidemia Lipid Panel; Status:Active; Requested for:12Jun2022; HTN (hypertension) Comprehensive Metabolic Panel; Status:Active; Requested for:12Jun2022; Impotence, organic Changed: From Sildenafil Citrate 50 MG Oral Tablet TAKE 1 TABLET DAILY 1 HOUR BEFORE NEEDED To Sildenafil Citrate 100 MG Oral Tablet (Viagra) TAKE 1 TABLET DAILY 1 HOUR BEFORE NEEDED Medication management Follow-up visit in 6 months Outpatient Follow-up Status: Hold For - Scheduling Requested for: [id number] PMH: Contusion of jaw, initial encounter Stop: HYDROcodone-Acetaminophen 5-325 MG Oral Tablet Screening PSA (prostate specific antigen) Prostate Spec.Ag, Screen; Status:Active; Requested for:12Jun2022; Symptomatic Parkinson disease Complete Blood Count; Status:Active; Requested for:12Jun2022; Chief Complaint medck History of Present IllnessInjuries from horse tramping him October 24. Doing much better in the wrist, ribs, jaw. Acquired adrenal hyperplasia - normal electrolytes in May. . Actinic keratoses - left cheek lesion is still not healing. Lesion on left arm will not heal. Small scab. Has been to [facility]. Will go since bothersome. Allergic rhinitis per ENT. Also noted deviated septum. Flonase helps. Still plugged on one side. Dr Dennis saw him for this discussed surgery. But he is gone now. So will refer to Dr Cho Benign prostatic hypertrophy - nocturia x 3-4. No daytime urgency. Will try the Flomax. 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 Some pain at times and limits motion. Essential familial hyperlipidemia - Med works well without side effects. In May 2021 Essential hypertension - No Chest pain, Dyspnea, palpitations, numbness, weakness, claudications, or double vision/ loss of vision. No longer has headaches. Not lightheaded. Edema in both ankles when on feet a lot. No orthopnea. Elevating legs helps. CMP WNL last time. Gastroesophageal reflux disease - Tums on occasion. No HB, Melena, or hematochezia. Will hang up in esophagus if he eats too fast or too dry. Headache when stressed but generally doing OK Impotence - Viagra not as effective at 50 so will try 100. But the ones he has are old also. Parkinsons - [facility] [place]. Does not affect eating writing. Left only like when holding tea. Stress and cold will worsen. No stiffness of arms. Right knee pain injured when moving equipment. Not swollen. Pain with walking medially. Has discussed injections and TKR. But Dr Spears is leaving PSA 11/24/20 Colonoscopy 11/28/16 Active Problems Acquired adrenal hyperplasia (255.8) (E27.8) Actinic keratosis (702.0) (L57.0) Acute pain of right knee (719.46) (M25.561) Atherosclerotic plaque (440.9) (I70.90) BPH (benign prostatic hyperplasia) (600.00) (N40.0) Cervical spondylosis without myelopathy (721.0) (M47.812) Constipation, acute (564.00) (K59.00) Deviated nasal septum (470) (J34.2) Distended bladder (596.89) (N32.89) Encounter for immunization (V03.89) (Z23) Essential familial hyperlipidemia (272.2) (E78.49) GERD (gastroesophageal reflux disease) (530.81) (K21.9) Headache, temporal (784.0) (R51.9) HTN (hypertension) (401.9) (I10) Hypertrophy of nasal turbinates (478.0) (J34.3) Impotence, 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 Normal [facility] Tobacco Screening.on 022 Fall risk assessment a) No falls within the last year [facility] Work Phone: Tobacco use status [facility] b) No [facility] Work Phone: Office Visiton 10-29-2021 Follow-up visit Diagnoses/Problems Struck by horse, initial encounter (E906.8) (W55.12XA) Contusion of left wrist, initial encounter (923.21) (S60.212A) Rib contusion, left, initial encounter (922.1) (S20.212A) Contusion of jaw, initial encounter (920) (S00.83XA) Abrasion, wrist w/o infection (913.0) (S60.819A) Constipation, acute (564.00) (K59.00) Orders BPH (benign prostatic hyperplasia) Renew: Finasteride 5 MG Oral Tablet; TAKE 1 TABLET DAILY Contusion of jaw, initial encounter Start: HYDROcodone-Acetaminophen 5-325 MG Oral Tablet; TAKE 1 TABLET EVERY 6 HOURS NEEDED Patient Discussion/Summary Contusions and abrasions as documented above. Seem to be healing well. He does have a problem with persistent constipation which will be aggravated by the [place]. So continue on the Dulcolax as needed. I did write for some [place] for him to take up to 4 times a day. But probably a better way for him to do this is just to take 2 at night so he can rest better. I told him he is can be sore for another week or so but then should start to turn around. He can be active as tolerated. And he already has been. Chief Complaint Trampled by horse 5 days ago History of Present IllnessTrampled by a horse that he was holding. Does not know if it actually stepped on him No LOC Does feel it hit head Afterwards he had pain in the back, left wrist, left calf, left rib, abdomen on left and left Jaw. Cuts on left wrist and right hand Did not go to ER right away but then developed constipation and bloating Has been able to have BM yesterday. Dulcolax finally worked Was at [facility] Given [place]. Takes that about every 6 hours. No dispensations noted in [facility] Has CT Abdomen, Chest Unremarkable. CBC and CMP WNL No nausea but decreased appetite. No blood in stools or urine or from ears or cough A little short of breath but not pain with breathing Pain in the flank when he coughs No fever, chills, cough, numbness or weakness Active Problems Acquired adrenal hyperplasia (255.8) (E27.8) Actinic keratosis (702.0) (L57.0) Acute pain of right knee (719.46) (M25.561) Atherosclerotic plaque (440.9) (I70.90) BPH (benign prostatic hyperplasia) (600.00) (N40.0) Cervical spondylosis without myelopathy (721.0) (M47.812) Deviated nasal septum (470) (J34.2) Distended bladder (596.89) (N32.89) Encounter for immunization (V03.89) (Z23) Essential familial hyperlipidemia (272.2) (E78.49) GERD (gastroesophageal reflux disease) (530.81) (K21.9) Headache, temporal (784.0) (R51.9) Hepatic cyst (573.8) (K76.89) HTN (hypertension) (401.9) (I10) Hypertrophy of nasal turbinates (478.0) (J34.3) Impotence, 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) Insomnia (780.52) (G47.00) Lymphedema of both lower extremities (457.1) (I89.0) Medicare annual wellness visit, subsequent (V70.0) (Z00.00) Medication management (V58.69) (Z79.899) Nasal vestibulitis (478.19) (J34.89) Overweight with body mass index (BMI) of 27 to 27.9 in adult (278.02,V85.23) (E66.3,Z68.27) Primary osteoarthritis of right knee (715.16) (M17.11) Rhinitis, nonallergic, chronic (472.0) (J31.0) Right knee pain (719.46) (M25.561) 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) (G20) Tinnitus of both ears (388.30) (H93.13) Past Medical History History of Body mass index (BMI) of 26.0 to 26.9 in adult (V85.22) (Z68.26) Resolved Date: 04 Jun 2021 History of COVID-19 virus infection (079.89) (U07.1) Resolved Date: 04 Jun 2021 History of elevated prostate specific antigen (PSA) (V13.89) (Z87.898) Resolved Date: 27 Nov 2020 History of pneumonia (V12.61) (Z87.01) Resolved Date: 27 Feb 2021 History of Medicare annual wellness visit, initial (V70.0) (Z00.00) Resolved Date: 04 Jun 2021 History of Sprain of costal cartilage, initial encounter (848.3) (S23.41XA) Resolved Date: 04 Jun 2021 History of Stage 3 chronic kidney disease (585.3) (N18.30) Resolved Date: 04 Jun 2021 Surgical History History of Colonoscopy History of Endoscopy Social History Never a smoker No recent foreign travel Patient has living will (V49.89) (Z78.9) Allergies No Known Drug Allergies Recorded By: Lyly Zapata; 04/24/2019 6:59:35 AM Current Meds Medication NameInstruction Finasteride 5 MG Oral TabletTAKE 1 TABLET DAILY. Fluticasone Propionate 50 MCG/ACT Nasal SuspensionINSTILL 1 SQUIRT Daily Losartan Potassium-HCTZ 50-12.5 MG Oral TabletTAKE 0.5 TABLET Daily Mupirocin 2 % External OintmentAPPLY A SMALL AMOUNT 3 TIMES DAILY DIRECTED. Naproxen 500 MG Oral TabletTAKE 1 TABLET EVERY 12 HOURS NEEDED. NIFEdipine ER 60 MG Oral Tablet Extended Release 24 HourTAKE 1 TABLET DAILY. Pravastatin Sodium 40 MG Oral TabletTake 1 tablet daily Tamsulosin HCl - 0.4 MG Oral CapsuleTAKE 1 CAPSULE Daily Triamcinolone Acetonide 55 MCG/ACT Nasal AerosolINSTILL 2 SQUIRT Daily Vitals Vital Signs Recorded: 29Oct2021 01:37PM Heart Rate72 Tejoqcne103, LUE Whlwpsozo43, LUE Height5 ft 8 in Lcadpk121 l (more content not included)... Normal [employer] Tobacco Screening.on 022 Fall risk assessment a) No falls within the last year [facility] Work Phone: Tobacco use status CP b) No [facility] Work Phone: Falls Risk Screeningon 09-04 Fall risk assessment a) No falls within the last year [facility] [address] Work Phone: Tobacco use status [facility] b) No [facility] [address] Work Phone: Initial Visit (Orthopaedic S mark)on 09-04-2021 Initial Visit (Orthopaedic Surgery) Diagnoses/Problems Assessed Acute pain of right knee (719.46) (M25.561) Orders Acute pain of right knee Administer: Triamcinolone Acetonide 40 MG/ML Injection Suspension; INJECT 1 ML Injection; To Be Done: [id number] Patient Discussion/Summary By signing my name below, I, Corrie Roper, attest that this documentation has been prepared under the direction and in the presence of Dr. Yovani Spears. All medical record entries made by the Scribe were at my direction and personally dictated by me. I have reviewed the chart and agree that the record accurately reflects my personal performance of the history, physical exam, discussion and plan. Provider Impressions Assessment- right knee pain, right knee osteoarthritis Plan-patient does present today with symptoms consistent with meniscal pathology as well as some degenerative arthritis within his right knee. 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 Please be aware that there may be grammatical or contextual errors due to the use of the software. Chief Complaint NEW) Referral from PCP for further evaluation and treatment of right knee pain, x1 episode of pop with immediate pain and swelling after, difficulty walking after pop with need for crutches short term. Onset: 5 months. He denies any previous knee complaints or injuries before 5 months ago. He states PCP advised rest, icing, rx naproxen 500, compression, and referral to ortho. XR series of the right knee performed on 07/31/2021. History of Present Illness Patient is a pleasant 76-year-old male presenting today for right knee pain as referred by his PCP Dr. Katie Rojas. XR series of the right knee was performed on 07/31/2021. Patient states he has been experiencing pain of the right knee for approximately 5 months. He reports an incident where he felt a pop in the knee that was accompanied by immediate, sharp pain and swelling. He was also having trouble with walking in which he was using crutches for support with ambulation. He has continued to be quite symptomatic since this episode with his pain and swelling progressively worsening over time. He does continue to have significant swelling of the right knee, as well as swelling of the ankle and foot. He denies any previous injury and/or complaints of the knee prior to this episode 5 months ago. He was evaluated by his PCP who advised him to rest, ice the knee, compressions, prescription of Naproxen 500 mg, and a referral to orthopedics. 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 He elects to proceed today with a corticosteroid injection for the right knee, as well as aspiration of fluid. Review of Systems Constitutional: no fever, no chills, not feeling tired, no recent weight gain and no recent weight loss. ENT: no nosebleeds. Cardiovascular: no chest pain. Respiratory: no shortness of breath and no cough. Gastrointestinal: no abdominal pain, no nausea, no diarrhea and no vomiting. Musculoskeletal: no arthralgias and as noted in HPI. Integumentary: no rashes and no skin wound. Neurological: no headache. Psychiatric: no depression and no sleep disturbances. Endocrine: no muscle cramps. Hematologic/Lymphatic: no swollen glands and no tendency for easy bruising. All other systems have been reviewed and are negative for complaint. *Active Problems Problems Acquired adrenal hyperplasia (255.8) (E27.8) Actinic keratosis (702.0) (L57.0) Acute pain of right knee (719.46) (M25.561) Atherosclerotic plaque (440.9) (I70.90) BPH (benign prostatic hyperplasia) (600.00) (N40.0) Cervical spondylosis without myelopathy (721.0) (M47.812) Deviated nasal septum (470) (J34.2) Encounter for immunization (V03.89) (Z23) Essential familial hyperlipidemia (272.2) (E78.49) GERD (gastroesophageal reflux disease) (530.81) (K21.9) Headache, temporal (784.0) (R51.9) Hepatic cyst (573.8) (K76.89) HTN (hypertension) (401.9) (I10) Hypertrophy of nasal turbinates (478.0) (J34.3) Impotence, 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 Normal [employer] Office Visit (Family Medicfela e)on 07-31-2021 Follow-up visit Diagnoses/Problems Right knee pain (719.46) (M25.561) Acute pain of right knee (719.46) (M25.561) Orders Acute pain of right knee Start: Naproxen 500 MG Oral Tablet; TAKE 1 TABLET EVERY 12 HOURS NEEDED Follow-Up, Recheck Outpatient Follow-up right knee not resolving completey or worsens/changes/concerns Status: Hold For - Scheduling Requested for: 31Jul2021 Xray Knee Complete 4 or more View; Status:Resulted - Preliminary; Done: 31Jul2021 09:47AM Laterality : Right Radiologist to Determine Optimal Study : Y What are the patient's signs and symptoms? : Pain right knee Provider Impressions Right knee pain/strain since twisting it yesterday Will get XRay Rest, ice. Agustin wrap for comfort/support. Will prescribe Naproxen for pain and swelling/to take with food Pt. is reluctant to do PT, so will watch closely. To notify us if any worsening symptoms. To ER if knee becomes red and hot. Follow up symptoms not resolving completely or worsens/changes/concerns 08/02/21 - Pt. notified XRay right knee with mild arthritic changes and loose body. Will refer to Dr. Spears. States has been feeling better. Not throwing cyndi of hay around for now.1 1 Amended By: Katie Rojas; Aug 02 2021 9:36 AM ESTChief Complaint Right knee pain - yesterday turned wrong. History of Present Illness Here with right knee pain Has had pain x 3 months but was getting better. 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 Yesterday turned quickly and felt a pop. Knee has been painful and swelled since then Currently painful with walking and going up steps. Pain level with walking about 8-9/10. Hasn't taken anything for the pain. Hasn't used any ice or heat. Review of Systems Review of Systems Constitutional: No fever. Musculoskeletal: Right knee pain Neurologic: No headache. 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) Insomnia (780.52) (G47.00) Lymphedema of both lower extremities (457.1) (I89.0) Medicare annual wellness visit, subsequent (V70.0) (Z00.00) Medication management (V58.69) (Z79.899) Nasal vestibulitis (478.19) (J34.89) Overweight with body mass index (BMI) of 27 to 27.9 in adult (278.02,V85.23) (E66.3,Z68.27) Primary osteoarthritis of right knee (715.16) (M17.11) Rhinitis, nonallergic, chronic (472.0) (J31.0) 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) (G20) Tinnitus of both ears (388.30) (H93.13) Past Medical History History of Body mass index (BMI) of 26.0 to 26.9 in adult (V85.22) (Z68.26) Resolved Date: 04 Jun 2021 History of COVID-19 virus infection (079.89) (U07.1) Resolved Date: 04 Jun 2021 History of elevated prostate specific antigen (PSA) (V13.89) (Z87.898) Resolved Date: 27 Nov 2020 History of pneumonia (V12.61) (Z87.01) Resolved Date: 27 Feb 2021 History of Medicare annual wellness visit, initial (V70.0) (Z00.00) Resolved Date: 04 Jun 2021 History of Sprain of costal cartilage, initial encounter (848.3) (S23.41XA) Resolved Date: 04 Jun 2021 History of Stage 3 chronic kidney disease (585.3) (N18.30) Resolved Date: 04 Jun 2021 Surgical History History of Colonoscopy History of Endoscopy Family History Family history of cerebrovascular accident (CVA) (V17.1) (Z82.3) Family history of diabetes mellitus (V18.0) (Z83.3) Family history of hypertension (V17.49) (Z82.49) Family history of malignant neoplasm (V16.9) (Z80.9) Social History Never a smoker No recent foreign travel Patient has living will (V49.89) (Z78.9) Allergies No Known Drug Allergies Recorded By: Lyly Zapata; 04/24/2019 6:59:35 AM Current Meds Medication NameInstructionReason Finasteride 5 MG Oral TabletTAKE 1 TABLET DAILY.BPH (benign prostatic hyperplasia) Tamsulosin HCl - 0.4 MG Oral CapsuleTAKE 1 CAPSULE DailyBPH (benign prostatic hyperplasia) Pravastatin Sodium 40 MG Oral TabletTake 1 tablet dailyEssential familial hyperlipidemia Losartan Potassium-HCTZ 50-12.5 MG Oral TabletTAKE 0.5 TABLET DailyHTN (hypertension) NIFEdipine ER 60 MG Oral Tablet Extended Release 24 HourTAKE 1 TABLET DAILY.HTN (hypertension) Fluticasone Propionate 50 MCG/ACT Nasal SuspensionINSTILL 1 SQUIRT DailyHypertrophy of nasal turbinates Mupirocin 2 % External OintmentAPPLY A SMALL AMOUNT 3 TIMES DAILY DIRECTED.Nasal vestibulitis Triamcinolone Acetonide 55 MCG/ACT Nasal AerosolINSTILL 2 SQUIRT DailyRhinitis, nonallergic, chronic (more content not included)... Normal [facility] 07-31-2021 XR Knee 4 Views Please click on the link to view the study images Normal [facility] Work Phone: XR Knee 4 Views Normal [facility] Work Phone: Tobacco Screening.on 022 Fall risk assessment a) No falls within the last year [facility] Work Phone: Tobacco use status [facility] b) No [facility] Work Phone: Medicare Annual Wellness Vis iton 06-04-2021 Medicare Annual Wellness Visit *Chief Complaint medck and AWV History of Present Illness The patient is being seen for the subsequent annual wellness visit. Past Medical, Surgical and Family History: reviewed and updated in chart. Medications and Supplements: Review of all medications by a prescribing practitioner or clinical pharmacist (such as prescriptions, OTCs, herbal therapies and supplements) documented in the medical record. No, the patient is not using opioids. Patient Self Assessment of Health Status: good. Tobacco use: Non-User Alcohol use: Non-User Illicit drug use: Non-User Current diet: well balanced diet, does consume adequate fluids and does consume caffeine. Exercise Frequency: regularly. Depression/Suicide Screening: . During the past 2 weeks, the patient has not felt down, depressed or hopeless. During the past 2 weeks, the patient has not felt little interest or pleasure in doing things. Hearing Impairment: on the right. Cognitive Impairment: No cognitive impairment observed, patient or family reported cognitive impairment . word finding and names. Bathing: performs independently. Dressing: performs independently. Walking: performs independently. Managing Finances: performs independently. Shopping: performs independently. Managing Medications: performs independently. Housework / Basic Home Maintenance: performs independently. Falls Risk Screening:. PETE has fallen in the last 6 months. His fall did not result in injury. Care Plan Low/Moderate Risk: Regular physical activity such as walking, water aerobics or ankit chi to improve strength, balance, coordination and flexibility. Wear appropriate, sensible shoe wear. Remove fall hazards at home such as loose rugs, obstacles, use non-slip surface in bath or shower. Keep living space well lit. (has stumbles in his barn tripping over things ) Home safety risk factors: no grab bars in the bathroom, household clutter and no handrails on the stairs. Advance directives:. Advanced Care Planning discussed and documented advance care plan or surrogate decision maker documented in the medical record. Patient has living will. Patient has healthcare POA. Patient's End of Life Decisions: End of life decisions were reviewed with the patient. I agree to follow the patient's decisions. Additional Information: Pain level 5 in knee. Acquired adrenal hyperplasia - normal electrolytes. Actinic keratoses - left cheek lesion is better. Lesion on left arm will not heal. Small scab. Has been to [facility] [place]. Will go if any bothersome or return to remove. Allergic rhinitis per ENT. Also noted deviated septum. Flonase helps. Benign prostatic hypertrophy - nocturia x 3-4. No daytime urgency. Will try the Flomax. 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 Some pain at times and limits motion. Chronic kidney disease (CKD), stage III (moderate) - GFR 65 this time with new formula so not an issue. No cause identified. No blood in urine Covid 19 resolved after a few months with dyspnea and cough. Essential familial hyperlipidemia - Med works well without side effects. In May 2021 Essential hypertension - No Chest pain, Dyspnea, palpitations, numbness, weakness, claudications, or double vision/ loss of vision. No longer has headaches. Not lightheaded. Edema in both ankles when on feet a lot. No orthopnea. Elevating legs helps. CMP WNL Gastroesophageal reflux disease - Tums on occasion. No HB, Melena, or hematochezia. Will hang up in esophagus if he eats too fast or too dry. Headache when stressed but generally doing OK Steatosis of liver - normal this time. Parkinsons - [facility] [place]. Does not affect eating writing. Left only like when holding tea. Stress and cold will worsen. No stiffness of arms. Right knee pain injured when moving equipment. Not swollen. Pain with walking medially. Will tret as OA with Voltaren and if not getting better will do XRay PSA 11/24/20 Colonoscopy 11/28/16 *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 Normal [employer] Tobacco Screening.on 022 Adult depression screening assessment [facility]: Fall risk assessment a) No falls within the last year [facility] Work Phone: Tobacco use status CP b) No [facility] Work Phone: Laboratory - Chemistry and C hemistry - challengeon 05-30-2021 Albumin BCP dye [Mass/Vol] 3.9 g/dL 3.4 - 5.0 [facility] Work Phone: ALP [Catalytic activity/Vol] 75 U/L 33 - 136 [facility] Work Phone: ALT With P-5'-P [Catalytic activity/Vol] 18 U/L 10 - 52 [facility] Work Phone: Comment on above: Patients treated wit h Sulfasalazine may generate falsely decreased results for ALT. Anion gap [Moles/Vol] 7 mmol/L below low threshold 10 - 20 [facility] Work Phone: AST With P-5'-P [Catalytic activity/Vol] 16 U/L 9 - 39 [facility] Work Phone: Bilirubin [Mass/Vol] 0.7 mg/dL 0.0 - 1.2 [facility] Work Phone: Calcium [Mass/Vol] 9.9 mg/dL 8.6 - 10.3 [facility] Work Phone: Chloride [Moles/Vol] 107 mmol/L 98 - 107 [facility] Work Phone: CO2 [Moles/Vol] 32 mmol/L 21 - 32 [facility] Work Phone: Creatinine [Mass/Vol] 1.16 mg/dL See Below [facility] Work Phone: Comment on above: Reference Range: 0.5 0 - 1.30 Glucose [Mass/Vol] 94 mg/dL 74 - 99 [facility] Work Phone: Potassium [Moles/Vol] 4.1 mmol/L 3.5 - 5.3 [facility] Work Phone: Protein [Mass/Vol] 6.8 g/dL 6.4 - 8.2 [facility] Work Phone: Sodium [Moles/Vol] 142 mmol/L 136 - 145 [facility] Work Phone: TSH Qn 3.37 m[IU]/L See Below [facility] Work Phone: Comment on above: Reference Range: 0.4 4 - 3.98 TSH testing is performed using different testing methodology at [facility] than at other [facility] [place] [facility]. Direct result comparisons should only be made within the same method. Urea nitrogen [Mass/Vol] 17 mg/dL 6 - 23 [facility] Work Phone: Laboratory - Hematology and Cell countson 05-30-2021 Erythrocyte distribution width (RBC) [Ratio] 13.1 % See Below [facility] Work Phone: Comment on above: Reference Range: 11. 5 - 14.5 Hematocrit (Bld) [Volume fraction] 44.6 % See Below [facility] Work Phone: Comment on above: Reference Range: 41. 0 - 52.0 Hemoglobin (Bld) [Mass/Vol] 14.7 g/dL See Below [facility] Work Phone: Comment on above: Reference Range: 13. 5 - 17.5 MCHC (RBC) [Mass/Vol] 32.9 g/dL See Below [facility] Work Phone: Comment on above: Reference Range: 32. 0 - 36.0 MCV (RBC) [Entitic vol] 93 fL 80 - 100 [facility] Work Phone: Platelets (Bld) [#/Vol] 286 10*3/uL 150 - 450 [facility] Work Phone: RBC (Bld) [#/Vol] 4.80 {x10E12/L} See Below [facility] Work Phone: Comment on above: Reference Range: 4.5 0 - 5.90 WBC (Bld) [#/Vol] 6.7 10*3/uL 4.4 - 11.3 [facility] Work Phone: Lipid Panelon 05-30-2021 Cholesterol [Mass/Vol] 107 mg/dL 0 - 199 [facility] Work Phone: Comment on above: . AGE DESIRABLE BORD [place]TTO HIGH HIGH 0-19 Y 0 - 169 170 - 199 >/= 200 20-24 Y 0 - 189 190 - 224 >/= 225 >24 Y 0 - 199 200 - 239 >/= 240 All ranges are based on fasting samples. Specific therapeutic targets will vary based on patient-specific cardiac risk.. Pediatric guidelines reference:Pediatrics 2011, 128(S5). Adult guidelines reference: NCEP ATPIII Guidelines, BULL 2001, 258:8556-97. Venipuncture immediately after or during the administration of Metamizole may lead to falsely low results. Testing should be performed immediately prior to Metamizole dosing. Cholesterol in HDL [Mass/Vol] 42.0 mg/dL [facility] Work Phone: Comment on above: . AGE VERY LOW LOW N ORMAL HIGH 0-19 Y < 35 < 40 40-45 ---- 20- 24 Y ---- < 40 >45 ---- >24 Y ---- < 40 40-60 >60. Cholesterol in LDL [Mass/Vol] 53 mg/dL 0 - 99 [facility] Work Phone: Comment on above: . NEAR BORD AGE ORLY RABLE OPTIMAL HIGH HIGH VERY HIGH 0-19 Y 0 - 109 --- 110-129 >/= 130 ---- 20-24 Y 0 - 119 --- 120-159 >/= 160 ---- >24 Y 0 - 99 100-129 130-159 160-189 >/=190. Cholesterol.total /Cholesterol in HDL [Mass ratio] 2.5 {ratio} [facility] Work Phone: Comment on above: REF VALUESDESIRABLE < 3.4HIGH RISK > 5.0 Triglyceride [Mass/Vol] 61 mg/dL 0 - 149 [facility] Work Phone: Comment on above: . AGE DESIRABLE BORD [place] HIGH HIGH VERY HIGH 0 D-90 D 19 - 174 ---- ---- ----91 D- 9 Y 0 - 74 75 - 99 >/= 100 ---- 10-19 Y 0 - 89 90 - 129 >/= 130 ---- 20-24 Y 0 - 114 115 - 149 >/= 150 ---- >24 Y 0 - 149 150 - 199 200- 499 >/= 500. Venipuncture immediately after or during the administration of Metamizole may lead to falsely low results. Testing should be performed immediately prior to Metamizole dosing. Lipid Panel 12 mg/dL 0 - 40 [facility] Work Phone: No Panel Informationon 05-30 65 {mL/min/1.73m2} >90 [facility] Work Phone: Comment on above: CALCULATIONS OF GOOD MATED GFR ARE PERFORMED USING THE 2020 CKD-EPI STUDY REFIT EQUATION WITHOUT THE RACE VARIABLE FOR THE IDMS-TRACEABLE CREATININE METHODS.https://jasn.asnjournals.org/content//ASN.20 06715094 Tobacco Screening.on 021 Fall risk assessment a) No falls within the last year [facility] Work Phone: Tobacco use status [facility] b) No [facility] Work Phone: Laboratory - Chemistry and C hemistry - challengeon 02-23-2021 Albumin BCP dye [Mass/Vol] 3.7 g/dL 3.4 - 5.0 [facility] Work Phone: ALP [Catalytic activity/Vol] 76 U/L 33 - 136 [facility] Work Phone: ALT With P-5'-P [Catalytic activity/Vol] 18 U/L 10 - 52 [facility] Work Phone: Comment on above: Patients treated wit h Sulfasalazine may generate falsely decreased results for ALT. Anion gap [Moles/Vol] 9 mmol/L below low threshold 10 - 20 [facility] Work Phone: Comment on above: @rechecked alternate analyzer AST With P-5'-P [Catalytic activity/Vol] 14 U/L 9 - 39 [facility] Work Phone: Bilirubin [Mass/Vol] 0.5 mg/dL 0.0 - 1.2 [facility] Work Phone: Calcium [Mass/Vol] 9.7 mg/dL 8.6 - 10.3 [facility] Work Phone: Chloride [Moles/Vol] 105 mmol/L 98 - 107 [facility] Work Phone: CO2 [Moles/Vol] 29 mmol/L 21 - 32 [facility] Work Phone: Creatinine [Mass/Vol] 1.36 mg/dL above high threshold See Below [facility] Work Phone: Comment on above: Reference Range: 0.5 0 - 1.30 Glucose [Mass/Vol] 148 mg/dL above high threshold 74 - 99 [facility] Work Phone: Potassium [Moles/Vol] 3.9 mmol/L 3.5 - 5.3 [facility] Work Phone: Protein [Mass/Vol] 6.3 g/dL below low threshold 6.4 - 8.2 [facility] Work Phone: Sodium [Moles/Vol] 139 mmol/L 136 - 145 [facility] Work Phone: Urea nitrogen [Mass/Vol] 18 mg/dL 6 - 23 [facility] Work Phone: No Panel Informationon 02-23 62 {mL/min/1.73m2} >60 [facility] Work Phone: Comment on above: CALCULATIONS OF GOOD MATED GFR ARE PERFORMED USING THE MDRD STUDY EQUATION FOR THE IDMS-TRACEABLE CREATININE METHODS. CLIN CHEM 2007;53:766-72 51 {mL/min/1.73m2} Abnormal >60 [facility] Work Phone: Radiologyon 02-21-2021 XR Chest 2 Views Normal [facility] Work Phone: Radiologyon 01-01-2021 XR Chest 2 Views Normal [facility] Work Phone: Tobacco Screening.on 021 Fall risk assessment a) No falls within the last year [facility] Work Phone: Tobacco use status [facility] b) No [facility] Work Phone: C Reactive Protein, Serumon 12-21-2020 CRP [Mass/Vol] 0.85 mg/dL [facility] Work Phone: Comment on above: REF VALUE< 1.00 Complete Blood Count + Diffe rentialon 12-21-2020 Erythrocyte distribution width (RBC) [Ratio] 12.8 % See Below [facility] Work Phone: Comment on above: Reference Range: 11. 5 - 14.5 Hematocrit (Bld) [Volume fraction] 40.6 % below low threshold See Below [facility] Work Phone: Comment on above: Reference Range: 41. 0 - 52.0 Hemoglobin (Bld) [Mass/Vol] 14.0 g/dL See Below [facility] Work Phone: Comment on above: Reference Range: 13. 5 - 17.5 MCHC (RBC) [Mass/Vol] 34.4 g/dL See Below [facility] Work Phone: Comment on above: Reference Range: 32. 0 - 36.0 MCV (RBC) [Entitic vol] 90 fL 80 - 100 [facility] Work Phone: Platelets (Bld) [#/Vol] 188 10*3/uL 150 - 450 [facility] Work Phone: RBC (Bld) [#/Vol] 4.51 {x10E12/L} See Below [facility] Work Phone: Comment on above: Reference Range: 4.5 0 - 5.90 WBC (Bld) [#/Vol] 3.8 10*3/uL below low threshold 4.4 - 11.3 [facility] Work Phone: Complete Blood Count + Differential SEE MANUAL DIFF [facility] Work Phone: Complete Blood Count + Differential 0.1 {/100_WBC} [facility] Work Phone: Coronavirus 2019 RNA by PCR, Symptomaticon 12-21-2020 Date and time of symptom onset 20201213 1 [facility] Work Phone: Coronavirus 2019 RNA by PCR, Symptomatic Detected Abnormal See Below [facility] Work Phone: Comment on above: SOURCE: Nasal, Nasop haryngealReference Range: Not Detected.This test has received [facility] Emergency Use Authorization (EUA) and has been verified by [facility]. This test is only authorized for the duration of time that circumstances exist to justify the authorization of the emergency use of in vitro diagnostic tests for the detection of SARS-CoV-2 virus and/or diagnosis of COVID-19 infection under section 564(b)(1) of the Act, 21 U.S.C. 360bbb-3(b)(1), unless the authorization is terminated or revoked sooner. [facility] is certified under CLIA-88 as qualified to perform high complexity testing. Testing is performed in the [facility] laboratory located at [address] [place] [address].SARS-CoV-2/Flu/RSV Multiplex Test: Fact sheet for providers: https://www.fda.gov/media/657507/downloadFact sheet for patients: https://www.fda.gov/media/869163/downloadCall not required per Clinician. , 12/22/2020 01:25 Ferritin, Serumon 12-21-2020 Ferritin [Mass/Vol] 479 ug/L above high threshold 20 - 300 [facility] Work Phone: Laboratory - Chemistry and C hemistry - challengeon 12-21-2020 Albumin BCP dye [Mass/Vol] 3.6 g/dL 3.4 - 5.0 [facility] Work Phone: ALP [Catalytic activity/Vol] 68 U/L 33 - 136 [facility] Work Phone: ALT With P-5'-P [Catalytic activity/Vol] 22 U/L 10 - 52 [facility] Work Phone: Comment on above: Patients treated wit h Sulfasalazine may generate falsely decreased results for ALT. Anion gap [Moles/Vol] 9 mmol/L below low threshold 10 - 20 [facility] Work Phone: AST With P-5'-P [Catalytic activity/Vol] 26 U/L 9 - 39 [facility] Work Phone: Bilirubin [Mass/Vol] 0.4 mg/dL 0.0 - 1.2 [facility] Work Phone: Calcium [Mass/Vol] 8.9 mg/dL 8.6 - 10.3 [facility] Work Phone: Chloride [Moles/Vol] 92 mmol/L below low threshold 98 - 107 [facility] Work Phone: CO2 [Moles/Vol] 30 mmol/L 21 - 32 [facility] Work Phone: Creatinine [Mass/Vol] 1.06 mg/dL See Below [facility] Work Phone: Comment on above: Reference Range: 0.5 0 - 1.30 Glucose [Mass/Vol] 113 mg/dL above high threshold 74 - 99 [facility] Work Phone: Potassium [Moles/Vol] 3.6 mmol/L 3.5 - 5.3 [facility] Work Phone: Protein [Mass/Vol] 6.4 g/dL 6.4 - 8.2 [facility] Work Phone: Sodium [Moles/Vol] 127 mmol/L below low threshold 136 - 145 [facility] Work Phone: Urea nitrogen [Mass/Vol] 16 mg/dL 6 - 23 [facility] Work Phone: Laboratory - Hematology and Cell countson 12-21-2020 Band form neutrophils/100 WBC (Bld) 2.0 % 0.0 - 5.0 [facility] Work Phone: Basophils/100 WBC (Bld) 0.0 % 0.0 - 2.0 [facility] Work Phone: Lymphocytes/100 WBC (Bld) 13.0 % See Below [facility] Work Phone: Comment on above: Reference Range: 13. 0 - 44.0 Monocytes/100 WBC (Bld) 3.0 % 2.0 - 10.0 [facility] Work Phone: Lactate, Levelon 12-21-2020 Lactate [Moles/Vol] 0.6 mmol/L 0.4 - 2.0 [facility] Work Phone: Comment on above: Venipuncture immedia tely after or during the administration of Metamizole may lead to falsely low results. Testing should be performed immediately prior to Metamizole dosing. No Panel Informationon 12-21 >60 >60 [facility] Work Phone: Comment on above: CALCULATIONS OF GOOD MATED GFR ARE PERFORMED USING THE MDRD STUDY EQUATION FOR THE IDMS-TRACEABLE CREATININE METHODS. CLIN CHEM 2007;53:766-72 NORMAL [facility] Work Phone: 0.23 {x10E9/L} See Below [facility] Work Phone: Comment on above: Reference Range: 0.0 0 - 0.30 0.00 {x10E9/L} See Below [facility] Work Phone: Comment on above: Reference Range: 0.0 0 - 0.10 Reference Range: 0.0 0 - 0.40 0.11 {x10E9/L} See Below [facility] Work Phone: Comment on above: Reference Range: 0.0 5 - 0.80 0.49 {x10E9/L} below low threshold See Below [facility] Work Phone: Comment on above: Reference Range: 0.8 0 - 3.00 0.08 {x10E9/L} See Below [facility] Work Phone: Comment on above: Reference Range: 0.0 0 - 0.50 2.89 {x10E9/L} See Below [facility] Work Phone: Comment on above: Reference Range: 1.6 0 - 5.00 2.97 {x10E9/L} See Below [facility] Work Phone: Comment on above: Reference Range: 1.6 0 - 5.50 6.0 % 0.0 - 2.0 [facility] Work Phone: 0.0 % 0.0 - 6.0 [facility] Work Phone: 76.0 % See Below [facility] Work Phone: Comment on above: Reference Range: 40. 0 - 80.0 Percent differential counts (%) should be interpreted in the context of the absolute cell counts (cells/L). 507 {ng/mL_FEU} Abnormal < or = 500 [facility] Work Phone: Comment on above: The VTE Exclusion D- Dimer assay is reported in ng/mL Fibrinogen Equivalent Units (FEU). Per manufacturers instructions for use, a value of less than 500 ng/mL (FEU) may help to exclude DVT or PE in outpatients when the assay is used with a clinical pretest probability assessment. ([facility] must utilize and document eCalc Wells Score Deep Vein Thrombosis Risk for DVT exclusion only; Emergency Department should utilize Guidelines for Emergency Department Use of the VTE Exclusion D-Dimer and Clinical Pretest probability assessment model for DVT or PE exclusion.) [email or web address] [email or web address] [email or web address]?R etrieveTestByDateTime?Nadia wauNN=[id number]&Date=05-30&Time=15%3a31%3a54%3a 00&TestType=ECG&Site=14&Ou tputType=PDF&Ext=PDF [facility] Work Phone: Please see physicia n note for formal interpretation confirmed by Scribe [facility] Work Phone: Normal -[facility] Work Phone: [phone] [facility] Work Phone: [phone] [facility] Work Phone: [phone] [facility] Work Phone: [phone] 1 [facility] Work Phone: [phone] [facility] Work Phone: 11 1 [facility] Work Phone: 74 1 [facility] Work Phone: 15 1 [facility] Work Phone: 60 1 [facility] Work Phone: [phone] [facility] Work Phone: [phone] 1 [facility] Work Phone: 90 1 [facility] Work Phone: [phone] 1 [facility] Work Phone: 70 1 [facility] Work Phone: Radiologyon 12-21-2020 XR Chest Single view Normal -[facility] Work Phone: Troponin I, Serumon 12-22-19 21 Troponin I.cardiac [Mass/Vol] ng/mL See Below [facility] Work Phone: Comment on above: Reference Range: 0.0 0 - 0.03LESS THAN 0.04 NG/ML: NEGATIVEREPEAT TESTING IN THREE TO SIX HOURSIF CLINICALLY INDICATED.0.04 - 0.5 NG/ML: CONSISTENT WITH POSSIBLECARDIAC DAMAGE AND POSSIBLE INCREASEDCLINICAL RISK.SERIAL MEASUREMENTS MAY HELP ASSESS EXTENT OFMYOCARDIAL DAMAGE.>0.5 NG/ML: CONSISTENT WITH CARDIAC DAMAGE,INCREASED CLINICAL RISK AND MYOCARDIALINFARCTION. SERIAL MEASUREMENTS MAY HELPASSESS EXTENT OF MYOCARDIAL DAMAGE..Note: Troponin I testing is performed using different testing methodology at [facility] than at other [facility] [place] [facility]. Direct result comparisons should only be made within the same method. Tobacco Screening.on 021 Fall risk assessment b) One or more falls in the last year [facility] Work Phone: Tobacco use status [facility] b) No [facility] Work Phone: Laboratory - Chemistry and C hemistry - challengeon 11-24-2020 Albumin BCP dye [Mass/Vol] 3.8 g/dL 3.4 - 5.0 [facility] Work Phone: ALP [Catalytic activity/Vol] 83 U/L 33 - 136 [facility] Work Phone: ALT With P-5'-P [Catalytic activity/Vol] 20 U/L 10 - 52 [facility] Work Phone: Comment on above: Patients treated wit h Sulfasalazine may generate falsely decreased results for ALT. Anion gap [Moles/Vol] 8 mmol/L below low threshold 10 - 20 [facility] Work Phone: AST With P-5'-P [Catalytic activity/Vol] 18 U/L 9 - 39 [facility] Work Phone: Bilirubin [Mass/Vol] 0.6 mg/dL 0.0 - 1.2 [facility] Work Phone: Calcium [Mass/Vol] 9.6 mg/dL 8.6 - 10.3 [facility] Work Phone: Chloride [Moles/Vol] 107 mmol/L 98 - 107 [facility] Work Phone: CO2 [Moles/Vol] 31 mmol/L 21 - 32 [facility] Work Phone: Creatinine [Mass/Vol] 1.22 mg/dL See Below [facility] Work Phone: Comment on above: Reference Range: 0.5 0 - 1.30 Glucose [Mass/Vol] 113 mg/dL above high threshold 74 - 99 [facility] Work Phone: Potassium [Moles/Vol] 3.6 mmol/L 3.5 - 5.3 [facility] Work Phone: Protein [Mass/Vol] 6.5 g/dL 6.4 - 8.2 [facility] Work Phone: Sodium [Moles/Vol] 142 mmol/L 136 - 145 [facility] Work Phone: Urea nitrogen [Mass/Vol] 21 mg/dL 6 - 23 [facility] Work Phone: Laboratory - Hematology and Cell countson 11-24-2020 Erythrocyte distribution width (RBC) [Ratio] 13.0 % See Below [facility] Work Phone: Comment on above: Reference Range: 11. 5 - 14.5 Hematocrit (Bld) [Volume fraction] 43.5 % See Below [facility] Work Phone: Comment on above: Reference Range: 41. 0 - 52.0 Hemoglobin (Bld) [Mass/Vol] 14.6 g/dL See Below [facility] Work Phone: Comment on above: Reference Range: 13. 5 - 17.5 MCHC (RBC) [Mass/Vol] 33.6 g/dL See Below [facility] Work Phone: Comment on above: Reference Range: 32. 0 - 36.0 MCV (RBC) [Entitic vol] 93 fL 80 - 100 [facility] Work Phone: Platelets (Bld) [#/Vol] 331 10*3/uL 150 - 450 [facility] Work Phone: RBC (Bld) [#/Vol] 4.69 {x10E12/L} See Below [facility] Work Phone: Comment on above: Reference Range: 4.5 0 - 5.90 WBC (Bld) [#/Vol] 7.3 10*3/uL 4.4 - 11.3 [facility] Work Phone: No Panel Informationon 11-24 70 {mL/min/1.73m2} >60 [facility] Work Phone: Comment on above: CALCULATIONS OF GOOD MATED GFR ARE PERFORMED USING THE MDRD STUDY EQUATION FOR THE IDMS-TRACEABLE CREATININE METHODS. CLIN CHEM 2007;53:766-72 58 {mL/min/1.73m2} Abnormal >60 [facility] Work Phone: Prostate Specific Antigenon 11-24-2020 Prostate specific Ag [Mass/Vol] 2.31 ng/mL See Below [facility] Work Phone: Comment on above: Reference Range: 0.0 0 - 4.00The FDA requires that the method used for PSA assay be reported to the physician. Values obtained with different assay methods must not be used interchangeably. This testwas performed at [facility] using the Access Hybritech PSA assay is a two-site immunoenzymatic sandwich assay. The assay is approved for measurement of prostate-specific antigen (PSA)in serum and may be used in conjunction with a digital rectal examination in men 50 years and older as an aid in detection of prostate cancer.6-Yfhyy-oqtjpvcfo inhibitors (e.g. Proscar, Finasteride, Avodart, Dutasteride and Tila) for the treatment of BPH have been shown to lower PSA levels by an average of 50% after 6 months of treatment. Tobacco Screening.on 021 Fall risk assessment b) One or more falls in the last year [facility] Work Phone: Tobacco use status CPHS b) No [facility] Work Phone: Metabolic Panelon 06-17-2019 Anion gap [Moles/Vol] 7 mmol/L below low threshold 10 - 20 [facility] Work Phone: Calcium [Mass/Vol] 9.7 mg/dL 8.6 - 10.3 [facility] Work Phone: Chloride [Moles/Vol] 108 mmol/L above high threshold 98 - 107 [facility] Work Phone: CO2 [Moles/Vol] 30 mmol/L 21 - 32 [facility] Work Phone: Creatinine [Mass/Vol] 1.16 mg/dL See Below [facility] Work Phone: Comment on above: Reference Range: 0.5 0 - 1.30 Glucose [Mass/Vol] 109 mg/dL above high threshold 74 - 99 [facility] Work Phone: Potassium [Moles/Vol] 3.8 mmol/L 3.5 - 5.3 [facility] Work Phone: Sodium [Moles/Vol] 141 mmol/L 136 - 145 [facility] Work Phone: Urea nitrogen [Mass/Vol] 20 mg/dL 6 - 23 [facility] Work Phone: Otheron 06-17-2019 >60 >60 [facility] Work Phone: Comment on above: CALCULATIONS OF GOOD MATED GFR ARE PERFORMED USING THE MDRD STUDY EQUATION FOR THE IDMS-TRACEABLE CREATININE METHODS. CLIN CHEM 2007;53:766-72 Sedimentation Rate, Erythroc yteon 04-27-2019 ESR (Bld) [Velocity] 13 mm/h 0 - 20 [facility] Work Phone: Metabolic Panelon 04-26-2019 Anion gap [Moles/Vol] 9 mmol/L below low threshold 10 - 20 [facility] Work Phone: Comment on above: Ordering Provider: P ROVIDER PENDING 04235 Calcium [Mass/Vol] 9.4 mg/dL 8.6 - 10.3 [facility] Work Phone: Comment on above: Ordering Provider: P ROVIDER PENDING 10192 Chloride [Moles/Vol] 105 mmol/L 98 - 107 [facility] Work Phone: Comment on above: Ordering Provider: P ROVIDER PENDING 66918 CO2 [Moles/Vol] 30 mmol/L 21 - 32 [facility] Work Phone: Comment on above: Ordering Provider: P ROVIDER PENDING 77623 Creatinine [Mass/Vol] 1.28 mg/dL See Below [facility] Work Phone: Comment on above: Reference Range: 0.5 0 - 1.30 Ordering Provider: P ROVIDER PENDING 61351 Glucose [Mass/Vol] 103 mg/dL above high threshold 74 - 99 [facility] Work Phone: Comment on above: Ordering Provider: P ROVIDER PENDING 78740 Potassium [Moles/Vol] 3.9 mmol/L 3.5 - 5.3 [facility] Work Phone: Comment on above: Ordering Provider: P ROVIDER PENDING 52254 Sodium [Moles/Vol] 140 mmol/L 136 - 145 [facility] Work Phone: Comment on above: Ordering Provider: P ROVIDER PENDING 73322 Urea nitrogen [Mass/Vol] 16 mg/dL 6 - 23 [facility] Work Phone: Comment on above: Ordering Provider: P ROVIDER PENDING [id number] Otheron 04-26-2019 67 {mL/min/1.73m2} >60 [facility] Work Phone: Comment on above: CALCULATIONS OF GOOD MATED GFR ARE PERFORMED USING THE MDRD STUDY EQUATION FOR THE IDMS-TRACEABLE CREATININE METHODS. CLIN CHEM 2007;53:766-72 Ordering Provider: P ROVIDER PENDING 06272 55 {mL/min/1.73m2} Abnormal >60 [facility] Work Phone: Comment on above: Ordering Provider: P ROVIDER PENDING 98614 .Auto Diffon 04-25-2019 Ammonia (P) [Mass/Vol] 1.00 10 3/mcL Normal 0.09-1.40 [facility] ([place]) Comment on above: Performed By: #### C BC, ADIFF, ANEU, GFR, BMP #### [address] [address] Basophils (Bld) [#/Vol] 0.10 10 3/mcL Normal 0.00-0.27 [facility] ([place]) Comment on above: Performed By: #### C BC, ADIFF, ANEU, GFR, BMP #### [address] [address] Basophils/100 WBC (Bld) 0.9 % Normal 0.0-2.5 [facility] ([place]) Comment on above: Performed By: #### C BC, ADIFF, ANEU, GFR, BMP #### [address] [address] Eosinophils (Bld) [#/Vol] 0.10 10 3/mcL Normal 0.00-0.65 [facility] ([place]) Comment on above: Performed By: #### C BC, ADIFF, ANEU, GFR, BMP #### [address] [address] Eosinophils/100 WBC (Bld) 1.7 % Normal 0.0-6.0 [facility] ([place] Comment on above: Performed By: #### C BC, ADIFF, ANEU, GFR, BMP #### [address] [address] Lymphocytes (Bld) [#/Vol] 1.10 10 3/mcL Normal 0.90-4.32 [facility] ([place]) Comment on above: Performed By: #### C BC, ADIFF, ANEU, GFR, BMP #### [address] [address] Lymphocytes/100 WBC (Bld) 14.3 % Low 20.0-40.0 [facility] ([place] Comment on above: Performed By: #### C BC, ADIFF, ANEU, GFR, BMP #### [address] [address] Monocytes/100 WBC (Bld) 13.7 % High 2.0-13.0 [facility] ([place]) Comment on above: Performed By: #### C BC, ADIFF, ANEU, GFR, BMP #### [address] [address] Neutrophils/100 WBC (Bld) 69.4 % Normal 50.0-75.0 [facility] ([place]) Comment on above: Performed By: #### C BC, ADIFF, ANEU, GFR, BMP #### [address] [address] .GFRon 04-25-2019 GFR >60 Normal [facility] ([place]) Comment on above: Result Comment: GFR Population mean for , Non- Americans Ages 20-29 = 116 mL/min/1.73 sq.m. Ages 30-39 = 107 mL/min/1.73 sq.m. Ages 40-49 = 99 mL/min/1.73 sq.m. Ages 50-59 = 93 mL/min/1.73 sq.m. Ages 60-69 = 85 mL/min/1.73 sq.m. Ages 70+ = 75 mL/min/1.73 sq.m. Chronic Kidney Disease: Less than 60 mL/min/1.73 square meters End Stage Renal Disease: Less than 15 mL/min/1.73 square meters Performed By: #### C BC, ADIFF, ANEU, GFR, BMP #### [address] [address] GFR Non- >60 Normal [facility] ([place]) Comment on above: Result Comment: GFR Population mean for , Non- Americans Ages 20-29 = 116 mL/min/1.73 sq.m. Ages 30-39 = 107 mL/min/1.73 sq.m. Ages 40-49 = 99 mL/min/1.73 sq.m. Ages 50-59 = 93 mL/min/1.73 sq.m. Ages 60-69 = 85 mL/min/1.73 sq.m. Ages 70+ = 75 mL/min/1.73 sq.m. Chronic Kidney Disease: Less than 60 mL/min/1.73 square meters End Stage Renal Disease: Less than 15 mL/min/1.73 square meters Performed By: #### C BC, ADIFF, ANEU, GFR, BMP #### [place] [address] .NEUABSon 04-25-2019 Neutrophils (Bld) [#/Vol] 5.30 10 3/mcL Normal 2.25-8.10 [facility] ([place] Comment on above: Performed By: #### C BC, ADIFF, ANEU, GFR, BMP #### [place] [address] BMPon 04-25-2019 Chloride [Moles/Vol] 107 mmol/L Normal 98-110 [facility] ([place] Comment on above: Performed By: #### C BC, ADIFF, ANEU, GFR, BMP #### [place] [address] Electrolyte Balance 5.0 mEq/L Normal 4.0-15.0 [facility] ([place] Comment on above: Performed By: #### C BC, ADIFF, ANEU, GFR, BMP #### [place] [address] Potassium [Moles/Vol] 4.1 mmol/L Normal 3.5-5.0 [facility] ([place] Comment on above: Performed By: #### C BC, ADIFF, ANEU, GFR, BMP #### [place] [address] Sodium [Moles/Vol] 140 mmol/L Normal 136-145 [facility] ([place] Comment on above: Performed By: #### C BC, ADIFF, ANEU, GFR, BMP #### [place] [address] Urea nitrogen [Mass/Vol] 16.0 mg/dL Normal 8.0-22.0 [facility] ([place] Comment on above: Performed By: #### C BC, ADIFF, ANEU, GFR, BMP #### [address] [address] Urea nitrogen/Creatini ne [Mass ratio] 15.0 ratio Normal 10.0-22.0 [facility] ([place] Comment on above: Performed By: #### C BC, ADIFF, ANEU, GFR, BMP #### [place] [id number] Calcium [Mass/Vol] 8.7 mg/dL Normal 8.4-10.1 [facility] ([place] Comment on above: Performed By: #### C BC, ADIFF, ANEU, GFR, BMP #### [place] [id number] CO2 [Moles/Vol] 28 mmol/L Normal 22-32 [facility] ([place] Comment on above: Performed By: #### C BC, ADIFF, ANEU, GFR, BMP #### [place] [id number] Creatinine [Mass/Vol] 1.07 mg/dL Normal 0.60-1.40 [facility] ([place] Comment on above: Performed By: #### C BC, ADIFF, ANEU, GFR, BMP #### [place] [id number] Glucose [Mass/Vol] 120 mg/dL High 82-115 [facility] ([place] Comment on above: Performed By: #### C BC, ADIFF, ANEU, GFR, BMP #### [address] [address] CBCon 04-25-2019 Erythrocyte distribution width (RBC) [Ratio] 12.8 % Normal 11.5-15.5 [facility] ([place] Comment on above: Performed By: #### C BC, ADIFF, ANEU, GFR, BMP #### [address] [address] Hematocrit (Bld) [Volume fraction] 43.3 % Normal 40.0-52.0 [facility] ([place] Comment on above: Performed By: #### C BC, ADIFF, ANEU, GFR, BMP #### [place] [id number] Hemoglobin (Bld) [Mass/Vol] 15.3 G/dL Normal 13.0-17.5 [facility] ([place] Comment on above: Performed By: #### C BC, ADIFF, ANEU, GFR, BMP #### [place] [id number] MCH (RBC) [Entitic mass] 31.9 pg Normal 27.0-33.0 [facility] ([place] Comment on above: Performed By: #### C BC, ADIFF, ANEU, GFR, BMP #### [place] [id number] MCHC (RBC) [Mass/Vol] 35.3 G/dL Normal 32.0-36.0 [facility] ([place] Comment on above: Performed By: #### C BC, ADIFF, ANEU, GFR, BMP #### [place] [address] MCV (RBC) [Entitic vol] 90.3 fL Normal 81.0-100.0 [facility] ([place] Comment on above: Performed By: #### C BC, ADIFF, ANEU, GFR, BMP #### [place] [id number] Platelet mean volume (Bld) [Entitic vol] 7.4 fL Normal 6.4-10.5 [facility] ([place] Comment on above: Performed By: #### C BC, ADIFF, ANEU, GFR, BMP #### [place] [id number] Platelets (Bld) [#/Vol] 251 10 3/mcL Normal 150-450 [facility] ([place] Comment on above: Performed By: #### C BC, ADIFF, ANEU, GFR, BMP #### [place] [id number] RBC (Bld) [#/Vol] 4.80 10 6/mcL Normal 4.50-6.00 [facility] ([place]) Comment on above: Performed By: #### C BC, ADIFF, ANEU, GFR, BMP #### [address] [address] WBC (Bld) [#/Vol] 7.60 10 3/mcL Normal 4.50-10.80 [facility]) Comment on above: Performed By: #### C BC, ADIFF, ANEU, GFR, BMP #### [address] [address] TROPIon 04-25-2019 Troponin I.cardiac [Mass/Vol] ng/mL Normal 0.000-0.040 [facility] ([place]) Comment on above: Result Comment: Trop onin I reference ranges (12/27/13): 0.00-0.040 ng/mL Negative and non-diagnostic. >0.040 ng/mL Consistent with cardiac damage, increased clinical risk and possibility of myocardial infarction. Serial measurements, a rise & fall in test results, clinical history, appropriate symptoms and/or ECG changes may help assess possibility of VT. *Other non-acute coronary syndrome conditions such as CHF, myocarditis, pulmonary emboli, sepsis and cardiac surgery could result in myocardial damage and increased troponin levels. Performed By: #### T TALITA #### [address] [address] Basic Panelon 04-20-2019 Creatinine [Mass/Vol] 1.28 mg/dL High 0.67-1.17 [facility] Comment on above: Performed By: #### P 8 #### [address] [address] Anion gap [Moles/Vol] 6 mmol/L Low 8-16 [facility] Comment on above: Performed By: #### P 8 #### [facility] [address] [place], [place] [address] Calcium [Mass/Vol] 9.5 mg/dL Normal 8.5-10.1 [facility] Comment on above: Performed By: #### P 8 #### [facility] [address] [place], [place] [address] CO2 [Moles/Vol] 31 mmol/L Normal 21-32 [facility] Comment on above: Performed By: #### P 8 #### [facility] [address] [place], [place] [address] Glucose [Mass/Vol] 122 mg/dL High 70-99 [facility] Comment on above: Performed By: #### P 8 #### [facility] [address] [place], [place] [address] Urea nitrogen [Mass/Vol] 20 mg/dL High 7-18 [facility] Comment on above: Performed By: #### P 8 #### [facility] [address] [place], [place] [address] Chloride [Moles/Vol] 104 mmol/L Normal 98-107 [facility] Comment on above: Performed By: #### P 8 #### [facility] [address] [place], [place] [address] Potassium [Moles/Vol] 3.5 mmol/L Normal 3.5-5.1 [facility] Comment on above: Performed By: #### P 8 #### [facility] [address] [place] [address] Sodium [Moles/Vol] 137 mmol/L Normal 136-145 [facility] Comment on above: Performed By: #### P 8 #### [facility] [address] [place] [address] [facility] Troponin Ion 04-20-2019 Troponin I.cardiac [Mass/Vol] ng/mL Normal 0.015-0.045 [facility] Comment on above: Performed By: #### E RTRP #### [facility] [address] [place] [address] ED NOTEon 04-20-2019 ED NOTE HNO ID: [id number] Author: Kwame ContrerasRn) JOJO Mckeon Service: Emergency Medicine Author Type: Registered Nurse Type: ED Notes Filed: 04/20/2019 3:17 AM Note Text: Report given to JOJO Arriaga on ROU at this time. No further questions at this time. Normal [facility] ED NOTE HNO ID: [id number] Author: Moriah ContrerasRn) JOJO Coleman Service: Emergency Medicine Author Type: Registered Nurse Type: ED Notes Filed: 04/20/2019 1:54 AM Note Text: Pt ambulatory to BR and back without difficulty [facility] ED NOTE HNO ID: [id number] Author: Moriah ContrerasRn) JOJO Coleman Service: Emergency Medicine Author Type: Registered Nurse Type: ED Notes Filed: 04/20/2019 1:26 AM Note Text: This RN to assume temporary care of pt @ this time to cover lunch of primary RN. Report received from JOJO Puente [facility] ED NOTE HNO ID: [id number] Author: Kwame ContrerasRn) JOJO Mckeon Service: Emergency Medicine Author Type: Registered Nurse Type: ED Notes Filed: 04/20/2019 12:41 AM Note Text: Pt states that he took 25 mg HCTZ at home for high BP around 1500 today and that he forgot to tell the dr about it. Spoke with Dr Dey concerning administering additional 25 mg tonight. She states she will speak with attending to determine that the med should still be given. [facility] ED NOTE HNO ID: [id number] Author: Kwame Hendrickson) JOJO Mckeon Service: Emergency Medicine Author Type: Registered Nurse Type: ED Notes Filed: 04/20/2019 12:26 AM Note Text: Patient placed on patient monitor. No ectopy noted. Alarms on and reviewed. Patient also attached to continuous pulse ox and disposable BP cuff. Rhythm noted: Sinus bradycardia, HR 58 bpm. [facility] ED PROV NOTEon 04-20-2019 ED PROV NOTE HNO ID: [id number] Author: Tracy Dey DO Service: Emergency Medicine Author Type: Physician Type: ED Provider Notes Filed: 04/22/2019 11:51 AM Note Text: -- Attestation signed by Cruz Robbins at 04/28/2019 12:58 AM Attending Physician Attestation Note: Yuen findings confirmed. I saw the patient in coordination with the resident physician. I personally interviewed and examined the patient. I discussed the patient with the resident physician. I reviewed the resident physician's note. I was present for yuen portions of and personally supervised any/all procedures. I agree with the resident physician's findings and medical decision making unless otherwise documented. Signature: Cruz Robbins DO Date: 04/28/2019 Time: 12:57 AM -- ED Provider Note Patient Name: Pete Odonnell SERVICE DATE: 04/19/19 History Patient presents with: Hypertension: Pt complains of headache for the last 4-5 weeks. Pt sts pain is diffuse throughout his head. Denies any blurry vision or dizziness. Pt complains of chest tightness with any activity, last time was 3 days ago. Pt sts he has been out of his blood pressure meds for the last three months. Pt was evaluated at [facility] and was given triamterene/HCTZ. Pt took medications around 3pm today. Pt sts after mediations his blood pressure was approx. 190 systolic. 74-year-old male presenting for complaint of increasing chest tightness with exertion and elevated blood pressure. Patient has had worsening elevated blood pressure over the past 3 months since stopping his initial blood pressure medication which is hydrochlorothiazide. He does report cyst headache over the past 4-5 weeks, worse with exertion?generalized over his entire head with no vision changes, nausea, or focal neurologic deficits reported. Patient also reports increasing chest tightness with exertional activity. 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 He denies history of prior cardiac disease, has had no provocative cardiac testing. He was seen at [facility], yesterday, was given a prescription for hydrochlorothiazide, on taking his blood pressure today he noted it was elevated and took a dose of this medication at 3 PM. He returns tonight after noting his blood pressure remains persistently elevated with systolics in the low 90s. He denies present chest pain, shortness of breath, diaphoresis, nausea, lightheadedness, abdominal or back pain. Denies lower extremity edema. PAST MEDICAL HISTORY Diagnosis Date - Hypercholesteremia - Hypertension - Snoring PAST SURGICAL HISTORY Procedure Laterality Date - COLONOSCOP W/ OR W/O BRSH SPEC 11/28/2016 Colonoscopy - EGD W/O OR W/BRUSH/WASH 11/28/2016 EGD FAMILY HISTORY Problem Relation Age of Onset - Cancer Father Social History Tobacco Use - Smoking status: Never Smoker - Smokeless tobacco: Never Used Substance and Sexual Activity - Alcohol use: No - Drug use: No - Sexual activity: Not on file ALLERGIES No Known Allergies Review of Systems Constitutional: Negative for chills, fatigue and fever. HENT: Negative for congestion, rhinorrhea, sinus pressure and sore throat. Eyes: Negative for photophobia and visual disturbance. Respiratory: Positive for chest tightness (Exertional). Negative for cough, shortness of breath and wheezing. Cardiovascular: Negative for chest pain, palpitations and leg swelling. Gastrointestinal: Negative for abdominal distention, abdominal pain, constipation, diarrhea, nausea and vomiting. Genitourinary: Negative for decreased urine volume, difficulty urinating, dysuria, frequency, hematuria and urgency. Musculoskeletal: Negative for arthralgias, back pain, myalgias and neck pain. Skin: Negative for color change and rash. Neurological: Negative for dizziness, weakness, light-headedness and headaches. Psychiatric/Behavioral: Negative for agitation and confusion. Physical Exam BP 196/92 Pulse 61 Temp (Src) 97.5 (Oral) Resp 14 Ht 5' 9 (1.75m) Wt 170 lb (77.1kg) SpO2 98% BMI 25.09 kg/(m2). O2 Therapy: Room Air Physical Exam Vitals signs and nursing note reviewed. Constitutional: General: He is not in acute distress. Appearance: Normal appearance. He is well-developed and normal weight. He is not ill-appearing, toxic-appearing or diaphoretic. Comments: Elderly male?nontoxic and in good spirits. Answering questions appropriately in full sentences, afebrile and hemodynamically stable. HENT: Head: Normocephalic and atraumatic. Right Ear: External ear normal. Left Ear: External ear normal. Nose: Nose normal. Mouth/Throat: Mouth: Mucous membranes are moist. Pharynx: No oropharyngeal exudate. Eyes: General: Right eye: No discharge. Left eye: No discharge. Conjunctiva/sclera: Conjunctivae normal. Pupils: Pupils are equal, round, and reactive to light. Neck: Musculoskeletal: Normal range of motion and neck supple. Cardiovascular: Rate and Rhythm: Normal rate and regular rhythm. Pulses: Radial pulses are 2+ on the right side and 2+ on the left side. Dorsalis pedis pulses are 2+ on the right side and 2+ on the left side. Heart sounds: Normal heart sounds. No murmur. Comments: Pressure elevated in the emergency department, systolics reading 190s to 160s Pulmonary: Effort: Pulmonary effort is normal. No respiratory distress. Breath sounds: Normal breath sounds. No wheezing or rales. Chest: Chest wall: No tenderness. Abdominal: General: Bowel sounds are normal. There is no distension. Palpations: Abdomen is soft. Tenderness: There is no abdominal tenderness. There is no guarding or rebound. Musculoskeletal: Normal range of motion. General: No tenderness. Lymphadenopathy: Cervical: No cervical adenopathy. Skin: General: Skin is warm and dry. Capillary Refill: Capillary refill takes less than 2 seconds. Findings: No erythema. Neurological: General: No focal deficit present. Mental Status: He is alert and oriented to person, place, and time. Cranial Nerves: No cranial nerve deficit. Sensory: No sensory deficit. Gait: Gait normal. Psychiatric: Mood and Affect: Mood normal. Behavior: Behavior normal. Thought Content: Thought content normal. Diagnostic Testing ED Labs Ordered and Reviewed COMPREHENSIVE METABOLIC PANEL (AK,AV,EU,FV,HL,LORNE,MM,SP) - Abnormal; Notable for the following components: Result Value Ref Range Glucose 121 (*) 70 - 99 mg/dL BUN 20 (*) 7 - 18 mg/dL Creatinine 1.43 (*) 0.67 - 1.17 mg/dL AST 10 (*) 15 - 37 U/L Anion Gap 7 (*) 8 - 16 All other components within normal limits CBC + AUTO DIFF (AK,AV,EU,FV,HL,LORNE,MM,SP) - Abnormal; Notable for the following components: Abs. Neut(Anc) 6.02 (*) 1.78 - 5.38 thou/cmm All other components within normal limits [facility] TROPONIN I ([facility] ED) MDRD GFR [facility] TROPONIN I ([facility] ED) NM CARDIAC PERF STRESS/PHARM Final Result XR CHEST 2V FRONTAL/LAT Final Result IMPRESSION: No acute radiographic abnormality. Manager Game: PSCB Transcribe Date/Time: Apr 19 2019 10:34P Dictated by : KATTY WELCH MD This examination was interpreted and the report reviewed and electronically signed by: KATTY WELCH MD on Apr 19 2019 10:37PM EST EKG with no evidence of acute ischemia, arrhythmia, or at interval abnormality. Procedures ED Course / Clinical Impression Clinical Impressions as of Apr 22 1144 Exertional angina (HCC) Uncontrolled hypertension MDM / Disposition / Plan 74-year-old male presenting for complaint of persistently elevated blood pressure with exertional chest pain. Afebrile and hemodynamically stable but markedly hypertensive on arrival. No relief with additional dose of 25 mg of hydrochlorothiazide in the department. Presently asymptomatic but reporting worsening or persistent exertional angina while performing daily tasks. Initial workup reveals troponin within normal limits ?2, no significant anemia or electrolyte abnormalities, renal function is diminished, slightly worse than baseline. No leukocytosis or significant anemia. Glucose elevated at 121?nonfasting. Chest x-ray with no significant intrathoracic abnormalities. Patient is stable for admission to the rapid observation unit for provocative cardiac testing?however there are no beds available in the unit and so the patient was admitted to the hospitalist service in stable condition. Aspirin administered in the emergency department. SIGNATURE: DO Tracy Flores DO 04/22/19 1151 Cruz Robbins 04/28/19 0058 Normal [facility] HISTORY PHYSICALon HISTORY PHYSICAL HNO ID: [id number] Author: Charmaine Angeles Service: Hospital Medicine Author Type: Nurse Practitioner Type: HANDP Filed: 04/20/2019 8:39 AM Note Text: -- Attestation signed by Falguni Vergara at 04/20/2019 11:01 AM Patient independently seen and examined. 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 Please see my addendum for more details. HPI 74 year old male with HTN who had been on maxide for years. PCP recently took him off due to abnormal kidney function. BP up to 230 mmHg at home so initially went to [facility] where he was restarted on maxide in er and discharged. Came here with same. The chest he is having is not current. It happens occasionally with exertion. He has no chest pain now. His BP is better. He was started on amlodipine-wants to leave today but we discussed may need multiple meds to control BP may not be until tomorrow. [place]. He does check his BP at home. No hx stroke and no numbness or tingling. N oSOB. Headache currently resolved. Physical exam Constitutional - Vitals as above, not in acute distress Resp - Clear to auscultate both sides, no wheezes, crackles or rales, no labored breathing CVS- RRR. No murmur, gallop or rub, pulse 2+ GI - NTND, bowel sounds normally heard, no mass palpable GAS AND OIL CHECKER- cranial nerves 2 to 12 grossly intact, no focal motor or sensory deficits noted, speech normal/ Psych- A ANDO x 3, mood normal Skin- Normal tugor, no ulcers or rashes A/P #chest pain #uncontrolled HTN after being taken off his BP med (had not wanted to start another because he is already on 3 other pills daily-prostate, hld and bab asp) #HLD #BPH #CKD III (vs ANTONIETA) Plan-start amlodipine, follow bp, trop neg, if bp better, stress test this afternoon, fluids and recheck bmp today, follow BP closely d/c later today if bp better or if not possible am d/c -- DEPARTMENT OF HOSPITAL MEDICINE HISTORY AND PHYSICAL EXAM SERVICE DATE: 04/20/2019 SERVICE TIME: 8:09 AM Primary Care Physician: Zoran Arceo MD NIGHT AND WEEKEND COVERAGE: After 7pm call #[phone] Chief complaint: headache HPI: This is a 74 y/o male with prior history of HTN, HLD, and BPH. Patient presents with chief complain of headache and elevated blood pressure. States he was taken off maxide a few months ago by his PCP due to rising kidney function. He has been monitoring BP at home and the last few days has had readings >200. He went to [facility] and they restarted his maxide and sent him home. He continued to have SBP >200 with associated headache. He denies vision changes. He also endorses chest tightness. 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 Reports associated dyspnea and occasional palpitations. No diaphoresis. No N/V. He believes he had a negative stress test one year ago. Troponin negative X3. BP 196/92. Creatinine 1.43. CXR no acute abnormalities. PAST MEDICAL HISTORY Diagnosis Date - Hypercholesteremia - Hypertension - Snoring PAST SURGICAL HISTORY Procedure Laterality Date - COLONOSCOP W/ OR W/O BRSH SPEC 11/28/2016 Colonoscopy - EGD W/O OR W/BRUSH/WASH 11/28/2016 EGD FAMILY HISTORY Problem Relation Age of Onset - Cancer Father Social History Tobacco Use - Smoking status: Never Smoker - Smokeless tobacco: Never Used Substance Use Topics - Alcohol use: No - Drug use: No HOME MEDICATIONS: Prior to Admission Medications Prescriptions Last Dose Informant Patient Reported? Taking? aspirin 81 mg chewable tablet Unknown at Unknown time Yes No Sig: Take 81 mg by mouth once daily. docusate sodium (COLACE) 100 mg capsule Unknown at Unknown time No No Sig: Take 1 capsule by mouth twice daily. finasteride (PROSCAR) 5 mg tablet 04/19/2019 at Unknown time Yes Yes Sig: Take 5 mg by mouth once daily. mupirocin (BACTROBAN) 2 % ointment Unknown at Unknown time No No Sig: Apply 1 application to affected area three times daily. pravastatin (PRAVACHOL) 40 mg tablet 04/20/2019 at Unknown time Yes Yes Sig: Take 40 mg by mouth once daily. sildenafil citrate (VIAGRA ORAL) Unknown at Unknown time Yes Yes Sig: Take 1 tablet by mouth as needed. triamterene-hydrochlorothi azide (MAXZIDE-25) 37.5-25 mg per tablet Unknown at Unknown time Yes No Sig: Take 1 tablet by mouth once daily. Facility-Administered Medications: None ALLERGIES No Known Allergies REVIEW OF SYSTEM: All systems reviewed and negative except as stated in HPI PHYSICAL EXAM: BP 182/64 Pulse 57 Temp (Src) 97.3 (Oral) Resp 18 Ht 5' 9 (1.75m) Wt 170 lb (77.1kg) SpO2 94% BMI 25.09 kg/(m2). O2 Therapy: Room Air GENERAL: Alert, no distress, cooperative SKIN: No rash HEAD/SINUSES: No significant findings, normocephalic, atraumatic NECK: No jugulovenous distention, No carotid bruits LUNGS: Lungs clear to auscultation, Unlabored CARDIAC: Normal S1 and S2; no rubs, murmurs, or gallops ABDOMEN: Abdomen soft, non-tender, BS normal EXTREMITIES: Extremities normal. no deformities, edema, or clubbing NEURO: AANDOX3, speech fluent DATA: Diagnostic tests reviewed for today's visit: WBC (thou/cmm) Date Value 04/19/2019 8.37 RBC (mil/cmm) Date Value 04/19/2019 5.03 Hemoglobin (g/dL) Date Value 02/22/2018 13.7 HGB (g/dL) Date Value 04/19/2019 15.5 Hematocrit (%) Date Value 04/19/2019 44.7 MCV (fl) Date Value 04/19/2019 88.9 MCH (pg) Date Value 04/19/2019 30.8 MCHC (%) Date Value 04/19/2019 34.7 RDW-CV (%) Date Value 02/22/2018 13.5 Platelet Count (thou/cmm) Date Value 04/19/2019 284 MPV (fl) Date Value 04/19/2019 9.8 Glucose (mg/dL) Date Value 04/19/2019 121 (H) BUN (mg/dL) Date Value 04/19/2019 20 (H) Creatinine (mg/dL) Date Value 04/19/2019 1.43 (H) Sodium (mEq/L) Date Value 04/19/2019 140 Potassium (mEq/L) Date Value 04/19/2019 3.6 Chloride (mEq/L) Date Value 04/19/2019 105 CO2 (mEq/L) Date Value 04/19/2019 32 Protein, Total (g/dL) Date Value 04/19/2019 6.9 Albumin (g/dL) Date Value 04/19/2019 3.5 Calcium (mg/dL) Date Value 04/19/2019 9.5 Alkaline Phosphatase (U/L) Date Value 04/19/2019 94 Bilirubin, Total (mg/dL) Date Value 04/19/2019 0.3 AST (U/L) Date Value 04/19/2019 10 (L) ALT (U/L) Date Value 04/19/2019 26 URINLAYSIS pH, Arterial Date Value Ref Range Status 02/20/2018 7.42 7.35 - 7.45 Final Specific [place], Ur Date Value Ref Range Status 02/18/2018 1.016 1.005 - 1.030 Final Glucose, Urine Date Value Ref Range Status 02/18/2018 Negative Negative mg/dL Final Bilirubin, Urine Date Value Ref Range Status 02/18/2018 Negative Negative Final Ketones, Urine Date Value Ref Range Status 02/18/2018 Negative Negative Final Hemoglobin/Blood,Ur Date Value Ref Range Status 02/18/2018 Negative Negative Final Protein, Urine Date Value Ref Range Status 02/18/2018 Negative Negative mg/dL Final WBC, Urine Date Value Ref Range Status 02/18/2018 0-5 0 - 5 /HPF Final Most recent labs and imaging results. Assessment/Plan 1. Accelerated HTN -will DC maxide and start Amlodipine -PRN hydralazine for SBP >160 -monitor and f/u with PCP 2. Chest pain -troponin negative -monitor on tele -daily aspirin -PRN NTG -stress test 3. HLD -continue statin 4. Mild ANTONIETA v worsening CKD -will give 500cc bolus and recheck BMP -f/u with PCP VTE Prophylaxis: Heparin 5000 units Sub Q TID Disposition: Home Plan of care discussed with: Provider and Patient SIGNATURE: Charmaine Angeles APRN.CNP PATIENT NAME: Pete Odonnell DATE: April 20, 2019 TIME: 8:09 AM PAGER/CONTACT #: [phone] Normal [facility] MDRD GFRon 04-20-2019 GFR/1.73 sq M predicted among non-blacks MDRD (S/P/Bld) [Vol rate/Area] 54.76 mL/min/{1.73_m2} Normal >60mL/min/1.7 3m2 [facility] Comment on above: Result Comment: If t he patient is , multiply the result by 1.210. Performed By: #### G FR #### [facility] [address] [id number] NM CARDIAC PERF STRESS/PHARM on 04-20-2019 NM CARDIAC PERF STRESS/PHARM * * *Final Report* * * DATE OF EXAM: Apr 20 2019 3:33PM [facility] 0006 - NM CARDIAC PERF STRESS/PHARM / PROCEDURE REASON: ACS, possible, negative troponin * * * * Physician Interpretation * * * * PATIENT: Name: PETE ODONNELL Age: 74 years Gender: M CONCLUSIONS: 1. SPECT Perfusion Study: Normal. 2. There is no scintigraphic evidence for inducible ischemia. 3. No evidence of scarred myocardium. 4. Functional capacity N/A (pharmacological). 5. Left ventricle is normal in size. The left ventricle systolic function is normal. 6. Right ventricle is normal in size. The right ventricle systolic function is normal. 7. This is a low risk scan. Gated Stress FBP LVEF % 68 Prior Study Comparison No prior nuclear cardiology exam available for comparison. Nuclear Med Report:1-Day Tc-Tetrofosmin Gated SPECT Myocardial Perfusion with Regadenoson Stress: Myocardial perfusion imaging was performed at rest 30 minutes following the IV injection of Tc-99m tetrofosmin. The patient received 0.4 mg of regadenoson, via rapid IV push, immediately followed by Tc-99m tetrofosmin IV. Gated post stress tomographic imaging was performed 30 to 60 minutes later. See administered doses below. [facility] Date of service: 04/20/2019 8:45:00 AM Indication: Assessment for suspected CAD and CP - ECG uniterpretable OR unable to exercise. Interpreting physician: Alex Cote MD Patient History: Medications currently taking are Ca Laura, hydralazine, statins and ASA. Height: 175.26 cm BSA: 1.94 m? Weight: 77.11 kg BMI: 25.1 kg/m? Imaging Protocol Limitation Reason Patient motion and Diaphragmatic attenuation. Primary Rhythm: Sinus and Non-Diagnostic. Secondary Rhythm: Sinus and Non-Diagnostic. Exam Type: Rest Stress Radiopharm: Tc-99m Tetrofosmin Tc-99m Tetrofosmin Dosage(mCi): 14.3 35.8 Stress Agent: Regadenoson 0.4mg Supply provided from [facility] Resting Heart Rate: 60 bpm Resting Blood Press: 181/74 mmHg Image Quality The overall study imaging quality was deemed to be good. The following technical issues were noted: Patient motion and Diaphragmatic attenuation. FINDINGS: Left Ventricle Wall Motion: Stress IR:3D - All segments are normal. Rest IR:3D - Gated Stress FBP - Reversibility - Stress IR:3D Stress IR:3D Gated Stress FBP LVEF: 68 % ED Volume: 75 ml ES Volume: 24 ml TID: 0.84 Perfusion Findings Stress IR:3D - Summed Score=0 All segments demonstrate normal perfusion. Rest IR:3D - Summed Score=0 All segments demonstrate normal perfusion. Stress IR:3D Rest IR:3D Summed Score=0 Summed Score=0 LEFT VENTRICLE The left ventricle is normal in size. Left ventricular systolic function is normal. Right Ventricle The right ventricle is normal in size. Right ventricle systolic function is normal. Stress Test Findings: There is no scintigraphic evidence for inducible ischemia. There is no evidence of scarring. The stress test was terminated due to the following: End of Protocol. Peak HR 82 bpm. (57 % MPHR) Peak BP 156 mmHg/75 mmHg Patient experienced nausea during stress. Stress ECG normal ST segment response. Stress complications: none. The left ventricular cavity size is unchanged with stress. Final Stress ECG Report: [facility] Date of service: 04/20/2019 8:45:00 AM Ordering physician: JOAN MOREJON Senior Revenue Accountant: Paola Gamble Exercise Boiler Repair Supervisor: Jj Roberts CEP Stress ECG interpreting physician: Trent Gtz MD PATIENT: Name: PETE ODONNELL Age: 74 years Gender: M Height: 175.26 cm BSA: 1.94 m? Weight: 77.11 kg BMI: 25.1 kg/m? STRESS ECG: Indications: CP - ECG un-interpretable or unable to exercise Diagnosis: Hypertension Symptoms: Headache Medications: Calcium channel laura, Diuretics and Statins Resting ECG: Normal Sinus Rhythm and Nonspecific T Wave Changes. Pharamcologic Protocol: Regadenoson Stress Test: +----+ +-------- + +---+---+---+-- -+---+----+ Step Speed (MPH) Grade(%) Time (min) HR SYS NICK RPE SOB METS +----+ +-------- + +---+---+---+-- -+---+----+ 1 80 134 74 +----+ +-------- + +---+---+---+-- -+---+----+ 2 82 158 90 +----+ +-------- + +---+---+---+-- -+---+----+ 3 80 161 77 +----+ +-------- + +---+---+---+-- -+---+----+ 4 76 +----+ +-------- + +---+---+---+-- -+---+----+ 5 153 78 +----+ +-------- + +---+---+---+-- -+---+----+ 6 73 +----+ +-------- + +---+---+---+-- -+---+----+ 7 71 +----+ +-------- + +---+---+---+-- -+---+----+ 8 72 156 75 +----+ +-------- + +---+---+---+-- -+---+----+ +-----+--+---+---+ HR SYS NICK +-----+--+---+---+ Final 82 156 75 +-----+--+---+---+ +----+ + Step Comments +----+ + 1 Denied Chest Sx, Stomach Sx, Headache Gone. No Change In EKG +----+ + 2 Denied Chest Sx, Stomach Sx, Headache Gone. No Change In EKG +----+ + 3 Denied Chest Sx, Stomach Sx, Headache Gone. No Change In EKG +----+ + 4 Denied Chest Sx, Stomach Sx, Headache Gone. No Change In EKG +----+ + 5 Denied Chest Sx, Stomach Sx, Headache Gone. No Change In EKG +----+ + 6 Denied Chest Sx, Stomach Sx, Headache Gone. No Change In EKG +----+ + 7 Denied Chest Sx, Stomach Sx, Headache Gone. No Change In EKG +----+ + 8 Denied Chest Sx, Stomach Sx, Headache Gone. No Change In EKG +----+ + Recovery: STRESS ECG RESULTS: Resting HR: 60 bpm Peak HR: 82 bpm Resting BP: 181 / 74 mmHg Peak BP: 156 / 75 mmHg METS achieved: ; Total Exercise Time: minutes seconds CRI: 0.35; RPP: 86461; % MPHR: 57%; DTS: Reason for test termination: End of Protocol. Symptoms during test: Nausea. Blood Pressure Response: Normal BP response ST segment and T wave changes: No ST changes Lexiscan 0.4mg IVP Followed By Nuclear Isotope IVP. Lungs CTA. No Change In EKG, No Ectopy. STRESS ECG SUMMARY: The resting blood pressure was 181/74 mmHg. The maximum heart rate was 82 bpm, which is 57% predicted for age. The double product achieved [place] [address]. Peak blood pressure was 156/75 mmHg. Clinical Response: Normal ECG Response: Non-Ischemic Final Stress Playground Official Report: [facility] Date of service: 04/20/2019 8:45:00 AM Ordering physician: JOAN MOREJON Supervising physician: Trent Gtz MD PATIENT: Name: PETE ODONNELL Age: 74 years Gender: M The supervising physician was present during the stress procedure. Final Manager Game: HEAVENLY Transcribe Date/Time: Apr 20 2019 8:45A Dictated by : ALEX COTE MD This examination was interpreted and the report reviewed and electronically signed by: ALEX COTE MD on Apr 20 2019 4:03PM EST [facility] PROGRESSon 04-20-2019 PROGRESS HNO ID: [id number] Author: Paola ContrerasRn) JOJO Gamble Service: Cardiovascular Testing Author Type: Registered Nurse Type: Progress Notes Filed: 04/20/2019 2:57 PM Note Text: Lexiscan Nuclear Stress Test Explained And Questions Answered Prior To Testing. [facility] PROGRESS HNO ID: [id number] Author: Duc (Rt) Yarely Hayes Service: Radiology Author Type: Business Executive Type: Progress Notes Filed: 04/20/2019 2:40 PM Note Text: RADIOLOGY SERVICE PROGRESS NOTE SERVICE DATE: 04/20/2019 SERVICE TIME: 2:39 PM PATIENT IDENTITY VERIFICATION COMPLETED USING TWO (2) STANDARD IDENTIFIERS: Name and Date of confirmed by patient verbally PATIENT GENDER DATA: .male ALLERGIES: Reviewed and unchanged MEDICATIONS REVIEWED: No PATIENT RELEVANT IMPLANT DATA REVIEWED: Not Applicable CREATININE: Creatinine Date Value Ref Range Status 04/20/2019 1.28 (H) 0.67 - 1.17 mg/dL Final 04/19/2019 1.43 (H) 0.67 - 1.17 mg/dL Final 02/22/2018 1.17 0.73 - 1.22 mg/dL Final eGFR-All Other Races Date Value Ref Range Status 02/22/2018 >60 . Final Comment: eGFR (Estimated GFR) Units of measure: mL/min/1.73 meters squared eGFR is derived from the reexpressed MDRD Study equation using the following parameters: serum creatinine, age, gender and race. The creatinine assay has been calibrated to be traceable to IDMS. An eGFR <60 mL/min/1.73m2 for >3 months is consistent with chronic kidney disease. Refer to KDOQI guidelines for clinical interpretation. In patients with unstable renal function, e.g. those with acute kidney injury, the eGFR may not accurately reflect actual GFR. eGFR- Date Value Ref Range Status 02/22/2018 >60 Final P.O.C.T. RESULTS: N/A April 20, [address] PERFORMED: No IV SITE: Inpatient - refer to LDA documentation POST EXAM PIV STATUS: Left in for next appointment PROCEDURE TYPE: NM Stress: 14.3mCi [id number] was administered IV for Rest Imaging at 1245 by ms. 35.8 mCi [id number] was administered IV for Stress Imaging at 230 by ty. ADMINISTRATION TIME: 1245 PATIENT DISCHARGED TO: Patient taken to IP transport area for return to RNF/ICU/ED. A Diagnostic radioactive procedure has taken place, with no further precautions necessary other than routine body substance precautions. More information regarding radiation safety can be found using this link: [email or web address] [email or web address]. pdf SIGNATURE: RT Johanna PATIENT NAME: Pete Odonnell DATE: April 20, 2019 TIME: 2:39 PM PAGER/CONTACT #: Normal [facility] Troponin Ion 04-20-2019 Troponin I.cardiac [Mass/Vol] ng/mL Normal 0.015-0.045 [facility] Comment on above: Performed By: #### T ROP #### [facility] [address] [address] XR CHEST 2V FRONTAL/LATon XR CHEST 2V FRONTAL/LAT * * *Final Report* * * DATE OF EXAM: Apr 19 2019 10:17PM [id number] [id number] - XR CHEST 2V FRONTAL/LAT / PROCEDURE REASON: Chest pain * * * * Physician Interpretation * * * * EXAMINATION: CHEST RADIOGRAPH (2 VIEW FRONTAL & LATERAL) CLINICAL HISTORY: Chest pain MQ: XC2_5 Comparison: None available RESULT: Lines, tubes, and devices: None. Lungs and pleura: No consolidation. No lung mass. No pleural effusion. Cardiomediastinal silhouette: Tortuous thoracic aorta. Other: . IMPRESSION: No acute radiographic abnormality. Manager Game: GUME Transcribe Date/Time: Apr 19 2019 10:34P Dictated by : KATTY WELCH MD This examination was interpreted and the report reviewed and electronically signed by: KATTY WELCH MD on Apr 19 2019 10:37PM EST Normal [facility] Comprehensive Panelon 2018 Urea nitrogen [Mass/Vol] 20 mg/dL High 7-18 [facility] Comment on above: Performed By: #### P 14 #### [facility] [address] [place], [place] [address] ALP [Catalytic activity/Vol] 94 U/L Normal 45-117 [facility] Comment on above: Performed By: #### P 14 #### [facility] [address] [place], [place] [address] Protein [Mass/Vol] 6.9 g/dL Normal 6.4-8.2 [facility] Comment on above: Performed By: #### P 14 #### [facility] [address] [place], [place] [address] Bilirubin [Mass/Vol] 0.3 mg/dL Normal 0.2-1.0 [facility] Comment on above: Performed By: #### P 14 #### [facility] [address] [place], [place] [address] ALT [Catalytic activity/Vol] 26 U/L Normal 12-78 [facility] Comment on above: Performed By: #### P 14 #### [facility] [address] [place], [place] [address] AST [Catalytic activity/Vol] 10 U/L Low 15-37 [facility] Comment on above: Performed By: #### P 14 #### [facility] [address] [place], [place] [address] Creatinine [Mass/Vol] 1.43 mg/dL High 0.67-1.17 [facility] Comment on above: Performed By: #### P 14 #### [facility] [address] [place], [place] [address] Albumin [Mass/Vol] 3.5 g/dL Normal 3.4-5.0 [facility] Comment on above: Performed By: #### P 14 #### [facility] [address] [place], [place] [address] Anion gap [Moles/Vol] 7 mmol/L Low 8-16 [facility] Comment on above: Performed By: #### P 14 #### [facility] [address] [place], [place] [address] Calcium [Mass/Vol] 9.5 mg/dL Normal 8.5-10.1 [facility] Comment on above: Performed By: #### P 14 #### [facility] [address] [address] CO2 [Moles/Vol] 32 mmol/L Normal 21-32 [facility] Comment on above: Performed By: #### P 14 #### [facility] [address] [place], [place] [address] Glucose [Mass/Vol] 121 mg/dL High 70-99 [facility] Comment on above: Performed By: #### P 14 #### [facility] [address] [address] Chloride [Moles/Vol] 105 mmol/L Normal 98-107 [facility] Comment on above: Performed By: #### P 14 #### [facility] [address] [address] Potassium [Moles/Vol] 3.6 mmol/L Normal 3.5-5.1 [facility] Comment on above: Performed By: #### P 14 #### [facility] [address] [address] Sodium [Moles/Vol] 140 mmol/L Normal 136-145 [facility] Comment on above: Performed By: #### P 14 #### [facility] [address] [place], [place] [address] [facility] Troponin Ion 04-19-2019 Troponin I.cardiac [Mass/Vol] ng/mL Normal 0.015-0.045 [facility] Comment on above: Performed By: #### E RTRP #### [facility] [address] [place], [place] [address] ED Triage Noteon 04-19-2019 ED Triage Note HNO ID: [id number] Author: Black Lizama Service: Emergency Medicine Author Type: Nurse Practitioner Type: ED Triage Notes Filed: 04/19/2019 7:43 PM Note Text: ED INTAKE NOTE Patient Name: Pete Odonnell Service Date: 04/19/19 BRIEF HPI: Provider in triage. Patient is a 74-year-old male with headache intermittent for the last 4-5 weeks. Patient denies blurry vision. Patient worries that his blood pressure could be rising at the times of headaches. Patient reports chest tightness with any strenuous activity. Patient states he was out of blood pressure medication for the last 3 months. Patient was evaluated at [facility] yesterday and given triamterene hydrochlorothiazide. Patient took medication around 3 PM today. Patient states his blood pressure at home was still significantly elevated. Patient states I am worried and want live a long time . Patient is extremely pleasant, well mannered speaking in full sentences and has an adult female at bedside. 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 Baso 0.06 thou/cmm Normal 0.01-0.08 [facility] Comment on above: Performed By: #### C BCD1 #### [place] [address] Abs. Jewell 0.71 thou/cmm Normal 0.30-0.82 [facility] Comment on above: Performed By: #### C BCD1 #### [place] [address] Basophils/100 WBC (Bld) 0.7 % Normal [facility] Comment on above: Performed By: #### C BCD1 #### [place] [address] Eosinophils (Bld) [#/Vol] 0.14 thou/cmm Normal 0.04-0.54 [facility] Comment on above: Performed By: #### C BCD1 #### [facility] [address] [place], [place] [address] Eosinophils/100 WBC (Bld) 1.7 % Normal [facility] Comment on above: Performed By: #### C BCD1 #### [facility] [address] [place] [address] Erythrocyte distribution width (RBC) [Ratio] 12.8 % Normal 11.6-14.4 [facility] Comment on above: Performed By: #### C BCD1 #### [facility] [address] [address] Hematocrit (Bld) [Volume fraction] 44.7 % Normal 40.1-51.0 [facility] Comment on above: Performed By: #### C BCD1 #### [facility] [address] [address] Hemoglobin (Bld) [Mass/Vol] 15.5 g/dL Normal 13.7-17.5 [facility] Comment on above: Performed By: #### C BCD1 #### [facility] [address] [address] Immature Grans 0.40 % Normal [facility] Comment on above: Performed By: #### C BCD1 #### [facility] [address] [address] Lymphocytes (Bld) [#/Vol] 1.41 thou/cmm Normal 0.84-2.85 [facility] Comment on above: Performed By: #### C BCD1 #### [facility] [address] [place], [place] [address] Lymphocytes/100 WBC (Bld) 16.8 % Normal [facility] Comment on above: Performed By: #### C BCD1 #### [facility] [address] [address] MCH (RBC) [Entitic mass] 30.8 pg Normal 25.7-32.2 [facility] Comment on above: Performed By: #### C BCD1 #### [facility] [address] [address] MCHC (RBC) [Mass/Vol] 34.7 % Normal 32.3-36.5 [facility] Comment on above: Performed By: #### C BCD1 #### [facility] [address] [place], [place] [address] MCV (RBC) [Entitic vol] 88.9 fL Normal 83.2-95.6 [facility] Comment on above: Performed By: #### C BCD1 #### [facility] [address] [address] Monocytes/100 WBC (Bld) 8.5 % Normal [facility] Comment on above: Performed By: #### C BCD1 #### [facility] [address] [address] Platelet mean volume (Bld) [Entitic vol] 9.8 fL Normal 8.7-12.0 [facility] Comment on above: Performed By: #### C BCD1 #### [facility] [address] [address] Platelets (Bld) [#/Vol] 284 thou/cmm Normal 141-365 [facility] Comment on above: Performed By: #### C BCD1 #### [facility] [address] [address] RBC (Bld) [#/Vol] 5.03 mil/cmm Normal 4.63-6.08 [facility] Comment on above: Performed By: #### C BCD1 #### [facility] [address] [address] RDW SD 41.8 fl Normal 36.1-45.8 [facility] Comment on above: Performed By: #### C BCD1 #### [facility] [address] [address] Seg Neutrophil 71.9 % Normal [facility] Comment on above: Performed By: #### C BCD1 #### [facility] [address] [place], [place] [address] WBC (Bld) [#/Vol] 8.37 thou/cmm Normal 4.23-9.07 [facility] Comment on above: Performed By: #### C BCD1 #### [facility] [address] [place] [address] CMPon 11-23-2018 Calcium [Mass/Vol] 10.1 mg/dL Normal 8.6-10.3 [facility] Comment on above: Performed By: #### 2 [id number] #### [facility] [address] [place] [address] Albumin [Mass/Vol] 3.9 g/dL Normal 3.4-5.0 [facility] Comment on above: Performed By: #### 2 [id number] #### [facility] [address] [place] [address] Albumin/Globulin [Mass ratio] 1.5 {ratio} Normal 1.1-1.9 [facility] Comment on above: Performed By: #### 2 [id number] #### [facility] [address] [place] [address] Alk Phos 62 Int._Unit/L Normal 33-136 [facility] Comment on above: Performed By: #### 2 [id number] #### [facility] [address] [place] [address] ALT [Catalytic activity/Vol] 30 Int._Unit/L Normal 10-52 [facility] Comment on above: Performed By: #### 2 [id number] #### [facility] [employer] [address] [place] [address] Anion gap [Moles/Vol] 8 mmol/L Low 10-20 [facility] Comment on above: Performed By: #### 2 [id number] #### [facility] [address] [place] [address] AST [Catalytic activity/Vol] 21 Int._Unit/L Normal 9-39 [facility] Comment on above: Performed By: #### 2 [id number] #### [facility] [address] [place] [address] Bili Total 0.74 mg/dL Normal 0.00-1.20 [facility] Comment on above: Performed By: #### 2 [id number] #### [facility] [address] [place] [address] Chloride [Moles/Vol] 103 mmol/L Normal 98-107 [facility] Comment on above: Performed By: #### 2 [id number] #### [facility] [address] [place] [address] CO2 [Moles/Vol] 33.0 mmol/L High 21.0-32.0 [facility] Comment on above: Performed By: #### 2 [id number] #### [facility] [address] [place] [address] Creatinine [Mass/Vol] 1.6 mg/dL High 0.5-1.3 [facility] Comment on above: Performed By: #### 2 [id number] #### [facility] [address] [place] [address] Globulin (S) [Mass/Vol] 3.0 g/dL Normal 2.0-4.0 [facility] Comment on above: Performed By: #### 2 [id number] #### [facility] [address] [place] [address] Glucose [Mass/Vol] 134 mg/dL High 70-99 [facility] Comment on above: Performed By: #### 2 [id number] #### [facility] [address] [place] [address] Potassium [Moles/Vol] 3.5 mmol/L Normal 3.5-5.3 [facility] Comment on above: Performed By: #### 2 [id number] #### [facility] [address] [place] [address] Protein [Mass/Vol] 6.5 g/dL Normal 6.4-8.2 [facility] Comment on above: Performed By: #### 2 [id number] #### [facility] [address] [place] [address] Sodium [Moles/Vol] 140 mmol/L Normal 136-145 [facility] Comment on above: Performed By: #### 2 [id number] #### [facility] [address] [place] [address] Urea nitrogen [Mass/Vol] 20 mg/dL Normal 6-23 [facility] Comment on above: Performed By: #### 2 [id number] #### [facility] [address] [place] [id number] Urea nitrogen/Creatini ne [Mass ratio] 12.5 ratio Normal 5.4-30.0 [facility] Comment on above: Performed By: #### 2 [id number] #### [facility] [address] [place], [place] [address] StxM2mit 11-23-2018 HbA1c (Bld) [Mass fraction] 6.0 % Normal 4.0-6.3 [facility] Comment on above: Performed By: #### 3 [id number] #### [facility] Chemistry Manual Subsection [address] [place], [place] [address] PSA Totalon 11-23-2018 PSA Total 1.85 ng/mL Normal [facility] Comment on above: Result Comment: AGE- SPECIFIC REFERENCE RANGES FOR SERUM PSA REFERENCE RANGE NG/ML AGE ASIANS BLACKS WHITE 40-49 0-2 0-2 0-2.5 50-59 0-3 0-4 0-3.5 60-69 0-4 0-4.5 0-4.5 70-79 0-5 0-5.5 0-6.5 PSA INCREASES WITH AGE, RACE, AND EJACULATION WITHIN [address] [facility] VOL24,NO.2, , PG.339 Performed By: #### 1 [id number] #### [place] [place] [id number] eGFRon 11-23-2018 GFR/1.73 sq M predicted among non-blacks MDRD (S/P/Bld) [Vol rate/Area] 53 mL/min/1.73 m2 [facility] Comment on above: Order Comment: Order added by Discern Expert. Performed By: #### 1 [id number] #### [facility] [address] [place] [address] GFR/1.73 sq M predicted among non-blacks MDRD (S/P/Bld) [Vol rate/Area] 44 mL/min/1.73 m2 [facility] Comment on above: Order Comment: Order added by Discern Expert. Performed By: #### 1 [id number] #### [facility] [address] [place], [place] [address] CMPon 02-04-2019 Albumin [Mass/Vol] 3.8 g/dL Normal 3.4-5.0 [facility] Comment on above: Performed By: #### 2 [id number] #### [facility] [employer] [address] [place], [place] [address] Albumin/Globulin [Mass ratio] 1.3 {ratio} Normal 1.1-1.9 [facility] Comment on above: Performed By: #### 2 [id number] #### [facility] [employer] [address] [place], [place] [address] Alk Phos 68 Int._Unit/L Normal 33-136 [facility] Comment on above: Performed By: #### 2 [id number] #### [facility] [employer] [address] [place], [place] [address] ALT [Catalytic activity/Vol] 28 Int._Unit/L Normal 10-52 [facility] Comment on above: Performed By: #### 2 [id number] #### [facility] [employer] [address] [place] [address] Anion gap [Moles/Vol] 8 mmol/L Low 10-20 [facility] Comment on above: Performed By: #### 2 [id number] #### [facility] [employer] [address] [place] [address] AST [Catalytic activity/Vol] 19 Int._Unit/L Normal 9-39 [facility] Comment on above: Performed By: #### 2 [id number] #### [facility] [employer] [address] [place] [address] Bili Total 0.32 mg/dL Normal 0.00-1.20 [facility] Comment on above: Performed By: #### 2 [id number] #### [facility] [employer] [address] [place] [address] Calcium [Mass/Vol] 9.7 mg/dL Normal 8.6-10.3 [facility] Comment on above: Performed By: #### 2 [id number] #### [facility] [employer] [address] [place], [place] [address] Chloride [Moles/Vol] 105 mmol/L Normal 98-107 [facility] Comment on above: Performed By: #### 2 [id number] #### [facility] [employer] [address] [place] [address] CO2 [Moles/Vol] 31.0 mmol/L Normal 21.0-32.0 [facility] Comment on above: Performed By: #### 2 [id number] #### [facility] [employer] [address] [place] [address] Creatinine [Mass/Vol] 1.3 mg/dL Normal 0.5-1.3 [facility] Comment on above: Performed By: #### 2 [id number] #### [facility] [employer] [address] [place] [address] Globulin (S) [Mass/Vol] 3.0 g/dL Normal 2.0-4.0 [facility] Comment on above: Performed By: #### 2 [id number] #### [facility] [employer] [address] [place] [address] Glucose [Mass/Vol] 122 mg/dL High 70-99 [facility] Comment on above: Performed By: #### 2 [id number] #### [facility] [employer] [address] [place] [address] Potassium [Moles/Vol] 3.4 mmol/L Low 3.5-5.3 [facility] Comment on above: Performed By: #### 2 [id number] #### [facility] [employer] [address] [place] [address] Protein [Mass/Vol] 6.7 g/dL Normal 6.4-8.2 [facility] Comment on above: Performed By: #### 2 [id number] #### [facility] [employer] [address] [place] [address] Sodium [Moles/Vol] 141 mmol/L Normal 136-145 [facility] Comment on above: Performed By: #### 2 [id number] #### [facility] [employer] [address] [place] [address] Urea nitrogen [Mass/Vol] 25 mg/dL High 6-23 [facility] Comment on above: Performed By: #### 2 [id number] #### [facility] [employer] [address] [place] [address] Urea nitrogen/Creatini ne [Mass ratio] 19.2 ratio Normal 5.4-30.0 [facility] Comment on above: Performed By: #### 2 [id number] #### [facility] [employer] [address] [place] [address] Lipid Profileon 05-25-2018 Cholesterol [Mass/Vol] 125 mg/dL Normal 0-199 [facility] Comment on above: Result Comment: MARKELL Hernandez CHOLEESTEROL: <200 NORMAL 200 - 239 BORDERLINE HIGH >240 HIGH Performed By: #### 3 [id number] #### [facility] [employer] [address] [place] [address] Cholesterol in HDL [Mass/Vol] 39 mg/dL Low 40-60 [facility] Comment on above: Performed By: #### 3 [id number] #### [facility] [employer] [address] [place] [address] Cholesterol in LDL [Mass/Vol] 66 mg/dL Normal 0-130 [facility] Comment on above: Result Comment: <100 OPTIMAL 100-129 NEAR / ABOVE OPTIMAL 130-159 BORDERLINE HIGH 160-189 HIGH >190 VERY HIGH CALC LDL NOT VALID WHEN TRIGLYCERIDE IS >400 MG/DL Performed By: #### 3 [id number] #### [facility] [employer] [address] [place] [address] Cholesterol in VLDL [Mass/Vol] 20 mg/dL Normal 0-40 [facility] Comment on above: Performed By: #### 3 [id number] #### [facility] [employer] [address] [place] [address] Triglyceride [Mass/Vol] 98 mg/dL Normal 0-149 [facility] Comment on above: Result Comment: AGE DESIRABLE BORDERLINE HIGH 91 D - 9 Y 0 - 74 75 - 99 > 100 10 - 19 Y 0 - 89 90 - 129 > 130 20 -24 Y 0 - 114 115 - 149 > 150 > 25 0 - 149 150 - 199 200 - 499 Performed By: #### 3 [id number] #### [facility] [employer] [address] [place] [address] PSA Totalon 05-25-2018 PSA Total 2.33 ng/mL Normal [facility] Comment on above: Result Comment: AGE- SPECIFIC REFERENCE RANGES FOR SERUM PSA REFERENCE RANGE NG/ML AGE ASIANS BLACKS WHITE 40-49 0-2 0-2 0-2.5 50-59 0-3 0-4 0-3.5 60-69 0-4 0-4.5 0-4.5 70-79 0-5 0-5.5 0-6.5 PSA INCREASES WITH AGE, RACE, AND EJACULATION WITHIN [address] [facility] VOL24,NO.2, , PG.339 Performed By: #### 1 [id number] #### [facility] [employer] [address] [place] [address] eGFRon 05-25-2018 GFR/1.73 sq M predicted among non-blacks MDRD (S/P/Bld) [Vol rate/Area] mL/min/{1.73_m2} Normal [facility] Comment on above: Order Comment: Order added by Discern Expert. Performed By: #### 1 [id number] #### [facility] [address] [place] [id number] GFR/1.73 sq M predicted among non-blacks MDRD (S/P/Bld) [Vol rate/Area] 54 mL/min/1.73 m2 [facility] Comment on above: Order Comment: Order added by Discern Expert. Performed By: #### 1 [id number] #### [facility] [employer] [address] [place] [id number] US Abdomen, Limitedon 2017 US Abdomen, Limited Exam Date/Time: 12/04/2017 08:05 EDT Reason for Exam: LIVER CYSTS ATTN: LIVER;Cysts Report STUDY: US Abdomen, Limited; 12/04/2017 8:05 am INDICATION: Cysts. COMPARISON: Right upper quadrant ultrasound, 03/10/2017. ACCESSION NUMBER(S): [id number] ORDERING CLINICIAN: Zoran Arceo TECHNIQUE: Ultrasound evaluation was performed of the right upper quadrant of the abdomen. Mary scale and color doppler images were performed. FINDINGS: Pancreas: The visualized portions of the pancreas are unremarkable. Liver: Again seen are multiple hepatic cysts. The largest cyst in the right hepatic lobe is similar in size measuring 9.9 x 10.5 x 10.8 cm (previously 8.5 x 10.5 x 11.2 cm), however it was previously anechoic and is now filled with heterogenous echogenic material. This could represent a new hemorrhagic or proteinaceous material and could be seen with hemorrhage or superinfection of the cyst. Please correlate with the patient's clinical symptoms. Ultrasound- guided aspiration could be performed for further evaluation. There is a smaller anechoic cyst in the left hepatic lobe measuring 1.5 x 1.2 x 1 cm and an anechoic cyst in the dome of the left hepatic lobe measuring 2.9 x 2 x 2.3 cm. Gallbladder: The gallbladder abuts the largest cyst. The gallbladder is normally distended and contains no calcified stones. Sonographic Larsen sign was negative. Common bile duct: Normal in appearance and diameter, measuring 4 mm. No significant intrahepatic biliary dilatation. Right kidney: The right kidney measures 9.4 cm in length. Cortical thickness and echogenicity are within normal limits. No shadowing stones or hydronephrosis. No significant free fluid in the abdomen. IMPRESSION: Multiple hepatic cysts. The largest cyst in the right hepatic lobe is similar in size but now filled with heterogenous echogenic material, which could represent hemorrhagic or proteinaceous material. This could represent internal hemorrhage or superinfection of the cyst. Please Exam Date/Time: 12/04/2017 08:05 EDT Report correlate with the patient's clinical symptoms. Ultrasound-guided aspiration could be considered for further evaluation as clinically warranted. FINAL REPORT Dictated: 12/04/2017 12:38 pm Edis La MD Signed (Electronic Signature): 12/04/2017 12:38 pm Signed by: Edis La MD Technologist: BEN [facility] Vital Signs Date Time Vital Sign Value Performing Clinician Facility 02-11-2024 10:04-0400 Body mass index (BMI) [Ratio] 28.19 kg/m2 Zoran Arceo MD Work Phone: [facility] 02-11-2024 10:04-0400 Body weight 81.65 kg Zoran Arceo MD Work Phone: [facility] 02-11-2024 10:04-0400 Diastolic blood pressure 78 mm[Hg] Zoran Arceo MD Work Phone: [facility] 02-11-2024 10:04-0400 Heart rate 71 /min Zoran Arceo MD Work Phone: [facility] 02-11-2024 10:04-0400 SaO2% (BldA) [Mass fraction] 96 % Zoran Arceo MD Work Phone: [facility] 02-11-2024 10:04-0400 Systolic blood pressure 134 mm[Hg] Zoran Arceo MD Work Phone: [facility] 02-10-2024 09:23-0400 Body height 172.7 cm Christi Shaikh MD Work Phone: [facility] 02-10-2024 09:23-0400 Body mass index (BMI) [Ratio] 27.31 kg/m2 Christi Shaikh MD Work Phone: [facility] 02-10-2024 09:23-0400 Body weight 81.47 kg Christi Shaikh MD Work Phone: [facility] 02-10-2024 09:23-0400 Diastolic blood pressure 55 mm[Hg] Christi Shaikh MD Work Phone: [facility] 02-10-2024 09:23-0400 Heart rate 63 /min Christi Shaikh MD Work Phone: [facility] 02-10-2024 09:23-0400 Respiratory rate 16 /min Christi Shaikh MD Work Phone: [facility] 02-10-2024 09:23-0400 SaO2% (BldA) [Mass fraction] 98 % Christi Shaikh MD Work Phone: [facility] 02-10-2024 09:23-0400 Systolic blood pressure 148 mm[Hg] Christi Shaikh MD Work Phone: [facility] 12-25-2023 12:53-0400 Body height 172.7 cm Trent Degroot MD Work Phone: [facility] 12-25-2023 12:53-0400 Body mass index (BMI) [Ratio] 26.05 kg/m2 Trent Degroot MD Work Phone: [facility] 12-25-2023 12:53-0400 Body weight 77.7 kg Trent Degroot MD Work Phone: [facility] 12-25-2023 12:53-0400 SaO2% (BldA) [Mass fraction] 99 % Trent Degroot MD Work Phone: [facility] 09-29-2023 11:37-0400 Body height 170.2 cm Zoran Arceo MD Work Phone: [facility] 09-29-2023 11:37-0400 Body mass index (BMI) [Ratio] 26.63 kg/m2 Zoran Arceo MD Work Phone: [facility] 09-29-2023 11:37-0400 Body weight 77.11 kg Zoran Arceo MD Work Phone: [facility] 09-29-2023 11:37-0400 Diastolic blood pressure 80 mm[Hg] Zoran Arceo MD Work Phone: [facility] 09-29-2023 11:37-0400 Heart rate 56 /min Zoran Arceo MD Work Phone: [facility] 09-29-2023 11:37-0400 SaO2% (BldA) [Mass fraction] 99 % Zoran Arceo MD Work Phone: [facility] 09-29-2023 11:37-0400 Systolic blood pressure 130 mm[Hg] Zoran Arceo MD Work Phone: [facility] 08-21-2023 15:33-0400 Body mass index (BMI) [Ratio] 27.41 kg/m2 Zoran Arceo MD Work Phone: [facility] 08-21-2023 15:33-0400 Body weight 79.38 kg Zoran Arceo MD Work Phone: [facility] 08-21-2023 15:33-0400 Diastolic blood pressure 74 mm[Hg] Zoran Arceo MD Work Phone: [facility] 08-21-2023 15:33-0400 Heart rate 64 /min Zoran Arceo MD Work Phone: [facility] 08-21-2023 15:33-0400 SaO2% (BldA) [Mass fraction] 95 % Zoran Arceo MD Work Phone: [facility] 08-21-2023 15:33-0400 Systolic blood pressure 132 mm[Hg] Zoran Arceo MD Work Phone: [facility] 05-13-2023 09:25-0500 Body height 170.2 cm Zoran Arceo MD Work Phone: [facility] 05-13-2023 09:25-0500 Body mass index (BMI) [Ratio] 27.1 kg/m2 Zoran Arceo MD Work Phone: [facility] 05-13-2023 09:25-0500 Body weight 78.47 kg Zoran Arceo MD Work Phone: [facility] 05-13-2023 09:25-0500 Diastolic blood pressure 76 mm[Hg] Zoran Arceo MD Work Phone: [facility] 05-13-2023 09:25-0500 Heart rate 62 /min Zoran Arceo MD Work Phone: [facility] 05-13-2023 09:25-0500 SaO2% (BldA) [Mass fraction] 99 % Zoran Arceo MD Work Phone: [facility] 05-13-2023 09:25-0500 Systolic blood pressure 124 mm[Hg] Zoran Arceo MD Work Phone: [facility] 11-25-2022 08:42-0400 Body mass index (BMI) [Ratio] 27.35 kg/m2 Zoran Arceo MD Work Phone: [facility] 11-25-2022 08:42-0400 Body weight 78.02 kg Zoran Arceo MD Work Phone: [facility] 11-25-2022 08:42-0400 Diastolic blood pressure 64 mm[Hg] Zoran Arceo MD Work Phone: [facility] 11-25-2022 08:42-0400 Heart rate 58 /min Zoran Arceo MD Work Phone: [facility] 11-25-2022 08:42-0400 SaO2% (BldA) [Mass fraction] 95 % Zoran Arceo MD Work Phone: [facility] 11-25-2022 08:42-0400 Systolic blood pressure 126 mm[Hg] Zoran Arceo MD Work Phone: [facility] 05-28-2022 14:14-0500 Body temperature 98.2 [degF] Tomas Pendleduong [employer] Work Phone: [facility] 05-28-2022 14:14-0500 Body weight 83.1 kg Toams Pendleduong [employer] Work Phone: [facility] 05-28-2022 14:14-0500 Diastolic blood pressure 78 mm[Hg] Tomas Pendlebury [employer] Work Phone: [facility] 05-28-2022 14:14-0500 Heart rate 94 /min Tomas Pendlebury [employer] Work Phone: [facility] 05-28-2022 14:14-0500 Respiratory rate 18 /min Tomas Pendlebury [employer] Work Phone: [facility] 05-28-2022 14:14-0500 SaO2% (BldA) [Mass fraction] 97 % Tomas Pendleduong [employer] Work Phone: [facility] 05-28-2022 14:14-0500 Systolic blood pressure 138 mm[Hg] Tomas Pendlebury [employer] Work Phone: [facility] 01-08-2022 11:06-0400 Body height 170.18 cm Zoran O Arceo Work Phone: [facility] [address] Work Phone: 01-08-2022 11:06-0400 Body mass index (BMI) [Ratio] 26 kg/m2 Zoran O Arceo Work Phone: [facility] [address] Work Phone: 01-08-2022 11:06-0400 Body surface area Derived from formula 1.87 m2 Zoran O Arceo Work Phone: [facility] [address] Work Phone: 01-08-2022 11:06-0400 Body temperature 97.7 [degF] Zoran O Arceo Work Phone: [facility] [address] Work Phone: 01-08-2022 11:06-0400 Body weight 75.3 kg Zoran O Arceo Work Phone: [facility] [address] Work Phone: 12-10-2021 08:34-0400 Body height 170.18 cm Zoran O Arceo Work Phone: [facility] Work Phone: 12-10-2021 08:34-0400 Body mass index (BMI) [Ratio] 26 kg/m2 Zoran O Arceo Work Phone: [facility] Work Phone: 12-10-2021 08:34-0400 Body surface area Derived from formula 1.87 m2 Zoran O Arceo Work Phone: [facility] Work Phone: 12-10-2021 08:34-0400 Body weight 75.3 kg Zoran O Arceo Work Phone: [facility] Work Phone: 12-10-2021 08:34-0400 Diastolic blood pressure 74 mm[Hg] Zoran O Arceo Work Phone: [facility] Work Phone: 12-10-2021 08:34-0400 Heart rate 60 /min Zoran O Arceo Work Phone: [facility] Work Phone: 12-10-2021 08:34-0400 Systolic blood pressure 128 mm[Hg] Zoran O Arceo Work Phone: [facility] Work Phone: 10-29-2021 13:37-0400 Body height 172.72 cm Zoran O Arceo Work Phone: [facility] Work Phone: 10-29-2021 13:37-0400 Body mass index (BMI) [Ratio] 26.46 kg/m2 Zoran O Arceo Work Phone: [facility] Work Phone: 10-29-2021 13:37-0400 Body surface area Derived from formula 1.93 m2 Zoran O Arceo Work Phone: [facility] Work Phone: 10-29-2021 13:37-0400 Body weight 78.93 kg Zoran O Arceo Work Phone: [facility] Work Phone: 10-29-2021 13:37-0400 Diastolic blood pressure 74 mm[Hg] Zoran O Arceo Work Phone: [facility] Work Phone: 10-29-2021 13:37-0400 Heart rate 72 /min Zoran O Arceo Work Phone: [facility] [facility] Work Phone: 10-29-2021 13:37-0400 Systolic blood pressure 130 mm[Hg] Zoran O Arceo Work Phone: [facility] Work Phone: 09-04-2021 10:17-0400 Body height 172.72 cm Zoran O Arceo Work Phone: [facility] 300 Work Phone: 09-04-2021 10:17-0400 Body mass index (BMI) [Ratio] 27.67 kg/m2 Zoran O Arceo Work Phone: [facility] 300 Work Phone: 09-04-2021 10:17-0400 Body surface area Derived from formula 1.96 m2 Zoran O Arceo Work Phone: [facility] 300 Work Phone: 09-04-2021 10:17-0400 Body temperature 97.8 [degF] Zoran O Arceo Work Phone: [facility] 300 Work Phone: 09-04-2021 10:17-0400 Body weight 82.56 kg Zoran O Arceo Work Phone: [facility] 300 Work Phone: 07-31-2021 09:01-0400 Body height 172.72 cm Zoran O Arceo Work Phone: [facility] Work Phone: 07-31-2021 09:01-0400 Body mass index (BMI) [Ratio] 27.83 kg/m2 Zoran O Arceo Work Phone: [facility] Work Phone: 07-31-2021 09:01-0400 Body surface area Derived from formula 1.97 m2 Zoran O Arceo Work Phone: [facility] Work Phone: 07-31-2021 09:01-0400 Body weight 83.01 kg Zoran O Arceo Work Phone: [facility] Work Phone: 07-31-2021 09:01-0400 Diastolic blood pressure 70 mm[Hg] Zoran O Arceo Work Phone: [facility] Work Phone: 07-31-2021 09:01-0400 Heart rate 64 /min Zoran O Arceo Work Phone: [facility] Work Phone: 07-31-2021 09:01-0400 Systolic blood pressure 136 mm[Hg] Zoran O Arceo Work Phone: [facility] Work Phone: 06-04-2021 08:39-0500 Body height 172.72 cm Zoran O Arceo Work Phone: [facility] Work Phone: 06-04-2021 08:39-0500 Body mass index (BMI) [Ratio] 27.83 kg/m2 Zoran O Arceo Work Phone: [facility] Work Phone: 06-04-2021 08:39-0500 Body surface area Derived from formula 1.97 m2 Zoran O Arceo Work Phone: [facility] Work Phone: 06-04-2021 08:39-0500 Body weight 83.01 kg Zoran O Arceo Work Phone: [facility] Work Phone: 06-04-2021 08:39-0500 Diastolic blood pressure 70 mm[Hg] Zoran O Arceo Work Phone: [facility] Work Phone: 06-04-2021 08:39-0500 Heart rate 60 /min Zoran O Arceo Work Phone: [facility] Work Phone: 06-04-2021 08:39-0500 Systolic blood pressure 122 mm[Hg] Zoran O Arceo Work Phone: [facility] Work Phone: 02-27-2021 13:45-0500 Body height 172.72 cm Zoran O Arceo Work Phone: [facility] Work Phone: 02-27-2021 13:45-0500 Body mass index (BMI) [Ratio] 25.54 kg/m2 Zoran O Arceo Work Phone: [facility] Work Phone: 02-27-2021 13:45-0500 Body surface area Derived from formula 1.9 m2 Zoran O Arceo Work Phone: [facility] Work Phone: 02-27-2021 13:45-0500 Body weight 76.2 kg Zoran O Arceo Work Phone: [facility] Work Phone: 02-27-2021 13:45-0500 Diastolic blood pressure 64 mm[Hg] Zoran O Arceo Work Phone: [facility] Work Phone: 02-27-2021 13:45-0500 Heart rate 60 /min Zoran O Arceo Work Phone: [facility] Work Phone: 02-27-2021 13:45-0500 Systolic blood pressure 120 mm[Hg] Zoran O Arceo Work Phone: [facility] Work Phone: 12-21-2020 22:00-0400 Diastolic blood pressure 68 mm[Hg] Zoran Hineser Other Phone: [facility] 12-21-2020 22:00-0400 Heart rate 69 /min Zoran Hineser Other Phone: [facility] 12-21-2020 22:00-0400 Respiratory rate 17 /min Zoran Hineser Other Phone: [facility] 12-21-2020 22:00-0400 SaO2% (BldA) [Mass fraction] 96 % Zoran Hineser Other Phone: [facility] 12-21-2020 22:00-0400 Systolic blood pressure 141 mm[Hg] Zoran Hineser Other Phone: [facility] 12-21-2020 17:43-0400 Body height 172.7 cm Zoran Hineser Other Phone: [facility] 12-21-2020 17:43-0400 Body temperature 98.42 [degF] Zoran Hineser Other Phone: [facility] 12-21-2020 17:43-0400 Body weight 72.7 kg Zoran Arceo Other Phone: [facility] 11-27-2020 08:33-0400 Body height 172.72 cm Zoran Wilda Arceo Work Phone: [facility] Work Phone: 11-27-2020 08:33-0400 Body mass index (BMI) [Ratio] 25.54 kg/m2 Zoran O Arceo Work Phone: [facility] Work Phone: 11-27-2020 08:33-0400 Body surface area Derived from formula 1.9 m2 Zoran O Arceo Work Phone: [facility] Work Phone: 11-27-2020 08:33-0400 Body weight 76.2 kg Zoran O Arceo Work Phone: [facility] Work Phone: 11-27-2020 08:33-0400 Diastolic blood pressure 64 mm[Hg] Zoran O Arceo Work Phone: [facility] Work Phone: 11-27-2020 08:33-0400 Heart rate 72 /min Zoran O Arceo Work Phone: [facility] Work Phone: 11-27-2020 08:33-0400 Systolic blood pressure 116 mm[Hg] Zoran O Arceo Work Phone: [facility] Work Phone: 10-05-2020 14:36-0400 Body height 172.72 cm Zoran O Arceo Work Phone: [facility] Work Phone: 10-05-2020 14:36-0400 Body mass index (BMI) [Ratio] 26 kg/m2 Zoran O Arceo Work Phone: [facility] Work Phone: 10-05-2020 14:36-0400 Body surface area Derived from formula 1.91 m2 Zoran O Arceo Work Phone: [facility] Work Phone: 10-05-2020 14:36-0400 Body weight 77.57 kg Zoran O Arceo Work Phone: [facility] Work Phone: 10-05-2020 14:36-0400 Diastolic blood pressure 62 mm[Hg] Zoran O Arceo Work Phone: [facility] Work Phone: 10-05-2020 14:36-0400 Heart rate 64 /min Zoran O Arceo Work Phone: [facility] Work Phone: 10-05-2020 14:36-0400 Systolic blood pressure 120 mm[Hg] Zoran Hineser Work Phone: [facility] Work Phone: 05-18-2019 10:29-0500 BMI (Body Mass Index) 26.87 kg/m2 Zoran Arceo [facility] Work Phone: 05-18-2019 10:29-0500 Body weight 80.74 kg Zoran Arceo [facility] Work Phone: 05-18-2019 10:29-0500 BP Diastolic 70 mm[Hg] Zoran Arceo [facility] Work Phone: Comment on above: Location: [facility]; 05-18-2019 10:29-0500 BP Systolic 132 mm[Hg] Zoran Arceo [facility] Work Phone: Comment on above: Location: [facility]; 05-18-2019 10:29-0500 BSA (Body Surface Area) 1.95 m2 Zoran Arceo [facility] Work Phone: 05-18-2019 10:29-0500 Height 173.35 cm Zoran Arceo [facility] Work Phone: 05-18-2019 10:29-0500 Pulse (Heart Rate) 64 /min Zoran Arceo [facility] Work Phone: 05-04-2019 16:41-0500 BMI (Body Mass Index) 26.56 kg/m2 [facility] Work Phone: 05-04-2019 16:41-0500 Body Temperature 96.9 [degF] Zoran Arceo [facility] Work Phone: Comment on above: Method: Oral 05-04-2019 16:41-0500 Body weight 79.83 kg Zoran Hineser [facility] Work Phone: 05-04-2019 16:41-0500 BP Diastolic 82 mm[Hg] Zoran Arceo [facility] Work Phone: 05-04-2019 16:41-0500 BP Systolic 148 mm[Hg] Zoran Arceo [facility] Work Phone: 05-04-2019 16:41-0500 BSA (Body Surface Area) 1.94 m2 Zoran Hinseer [facility] Work Phone: 05-04-2019 16:41-0500 Height 173.35 cm Zoran Arceo [facility] Work Phone: 05-04-2019 16:41-0500 Pulse (Heart Rate) 60 /min Zoran Arceo [facility] Work Phone: 04-27-2019 10:21-0500 BMI (Body Mass Index) 26.87 kg/m2 Zoran Arceo [facility] Work Phone: 04-27-2019 10:21-0500 Body weight 80.74 kg Zoran Hineser [facility] Work Phone: 04-27-2019 10:21-0500 BP Diastolic 72 mm[Hg] Zoran Hineser [facility] Work Phone: Comment on above: Location: [facility]; 04-27-2019 10:21-0500 BP Systolic 140 mm[Hg] Zoran Arceo [facility] Work Phone: Comment on above: Location: [facility]; 04-27-2019 10:21-0500 BSA (Body Surface Area) 1.95 m2 Zoran Hineser [facility] Work Phone: 04-27-2019 10:21-0500 Height 173.35 cm Zoran Arceo [facility] Work Phone: 04-27-2019 10:21-0500 Pulse (Heart Rate) 72 /min Zoran Arceo [facility] Work Phone: Encounters Encounter Date Encounter Type Care Provider Facility Start: 02-11-2024 End: 02-11-2024 Office outpatient visit 25 minutes Zoran Arceo MD Work Phone: [facility] Comment on above: Acquired adrenal hyp erplasia (Multi) (Primary Dx); Immunization due; Actinic keratosis; Benign essential hypertension; Benign prostatic hyperplasia with nocturia; Cervical spondylosis without myelopathy; Deviated nasal septum; Elevated PSA; Essential familial hyperlipidemia; Gastroesophageal reflux disease without esophagitis; Headache, temporal; Primary hypertension; Mixed hyperlipidemia; Impaired fasting glucose; Insomnia due to medical condition; Liver cyst; Primary osteoarthritis of right knee; Prostate cancer (Multi); Rhinitis, nonallergic, chronic; Symptomatic Parkinson disease (Multi); Tinnitus of both ears; Hypercalcemia Start: 02-11-2024 End: 02-11-2024 ambulatory [facility] Start: 02-10-2024 End: 02-10-2024 ambulatory [place] Facility:[facility] Start: 02-10-2024 End: 02-10-2024 Patient encounter procedure Christi Shaikh MD Work Phone: Radiation Oncology Comment on above: Prostate cancer (HCC ) (Primary Dx) Start: 01-23-2024 End: 01-26-2024 ambulatory Denver Cho MD Work Phone: Urology Start: 01-09-2024 End: 01-09-2024 Telemedicine consultation with patient Trent Degroot MD Work Phone: [facility] Start: 01-09-2024 End: 01-09-2024 ambulatory Trent Degroot MD Work Phone: [facility] Comment on above: Parkinson's disease without dyskinesia or fluctuating manifestations (HCC) (Primary Dx); MCI (mild cognitive impairment) Start: 12-25-2023 End: 12-25-2023 ambulatory TRENT DEGROOT Facility:[facility] Start: 12-25-2023 End: 12-25-2023 Office outpatient visit 25 minutes Trent Degroot MD Work Phone: Neurology Comment on above: Parkinson's disease without dyskinesia or fluctuating manifestations (HCC) (Primary Dx); Generalized anxiety disorder; Insomnia due to medical condition; Exposure to Agent [place] Start: 11-11-2023 End: 11-11-2023 ambulatory [facility] Start: 11-07-2023 End: 11-07-2023 ambulatory [facility] Start: 10-10-2023 Telephone encounter Neurology Provid er Neurology Start: 10-07-2023 End: 10-07-2023 [facility] Start: 09-29-2023 End: 09-29-2023 [facility] Start: 09-29-2023 End: 09-29-2023 Assay of hemosiderin, quant Zoran Arceo MD Work Phone: [facility] Work Phone: Start: 09-29-2023 End: 09-29-2023 Patient encounter procedure Zoran Arceo MD Work Phone: [facility] Comment on above: Routine general medi christiana examination at health care facility (Primary Dx); Primary insomnia; Benign prostatic hyperplasia with nocturia; Symptomatic Parkinson disease (Multi); Lymphedema of both lower extremities; Elevated PSA Start: 09-29-2023 End: 09-29-2023 ambulatory [facility] Start: 09-29-2023 End: 09-29-2023 Encounter for general adult medical examination without abnormal findings [facility] Start: 08-22-2023 End: 08-23-2023 ambulatory [facility] Start: 08-22-2023 End: 08-22-2023 Subsequent hospital visit by physician Erick Tracy 1 [facility] Comment on above: Hematoma; Leg edema, left Start: 08-21-2023 End: 08-21-2023 Office outpatient visit 15 minutes Zoran Arceo MD Work Phone: [facility] Comment on above: Hematoma (Primary Dx ); Leg edema, left Start: 08-21-2023 End: 08-21-2023 ambulatory [facility] Start: 07-30-2023 End: 07-30-2023 ambulatory [facility] Start: 05-13-2023 End: 05-13-2023 Office outpatient visit 25 minutes Zoran Arceo MD Work Phone: [facility] Comment on above: Acquired adrenal hyp erplasia (CMS/HCC) (Primary Dx); Primary hypertension; Impaired fasting glucose; Actinic keratosis; Benign essential hypertension; Benign prostatic hyperplasia with nocturia; Cervical spondylosis without myelopathy; Deviated nasal septum; Essential familial hyperlipidemia; Gastroesophageal reflux disease without esophagitis; Headache, temporal; Mixed hyperlipidemia; Primary insomnia; Lymphedema of both lower extremities; Primary osteoarthritis of right knee; Stage 3a chronic kidney disease (CMS/HCC); Symptomatic Parkinson disease; Rhinitis, nonallergic, chronic; Tinnitus of both ears Start: 05-13-2023 End: 05-13-2023 ambulatory [facility] Start: 05-07-2023 End: 05-07-2023 ambulatory [facility] Start: 11-25-[address] Zoran Arceo Facility:[id number] Start: 11-25-2022 End: 11-25-2022 Office outpatient visit 40 minutes Zoran Arceo MD Work Phone: [facility] Comment on above: Benign prostatic hyp erplasia with nocturia (Primary Dx); Essential familial hyperlipidemia; Primary hypertension; Impaired fasting glucose; Acquired adrenal hyperplasia (CMS/HCC); PSA elevation; Chronic cough; Actinic keratosis; Cervical spondylosis without myelopathy; Stage 3a chronic kidney disease (CMS/HCC); Deviated nasal septum; Gastroesophageal reflux disease without esophagitis; Headache, temporal; Lymphedema of both lower extremities; Primary osteoarthritis of right knee; Rhinitis, nonallergic, chronic; Symptomatic Parkinson disease (CMS/HCC); Tinnitus of both ears Start: 05-30-2022 EPV, Provider: Zoran Arceo, Status: Pen, Time: 11:30 AM Zoran Arceo Work Phone: [facility] Work Phone: Start: 05-30-2022 ambulatory Zoran Arceo Facil [id number] Start: 05-29-2022 AUDIT Zoran Arceo Work Phone: [facility] Work Phone: Start: 05-28-2022 End: 05-28-2022 Subsequent hospital visit by physician Xr [facility] Work Phone: Radiology Comment on above: Rib pain [R07.81] Start: 05-28-2022 End: 05-28-2022 Office outpatient visit 15 minutes Tomas Ramirez APRN.CNP Work Phone: [facility] Comment on above: Rib pain (Primary Dx ); Closed fracture of one rib of left side, initial encounter Start: 05-27-2022 Chart Update Zoran Arceo Work Phone: [facility] Work Phone: Start: 04-02-2022 Patient encounter procedure Zoran Arceo Work Phone: [facility] Work Phone: Start: 04-02-2022 ambulatory Zoran Arceo Facil [id number] Start: 01-08-2022 Office outpatient vi sit 15 minutes Zoran Arceo Work Phone: [facility] 300 Work Phone: Start: 01-08-2022 ambulatory Yovani Spears Fac ility:[id number] Start: 12-10-2021 Office outpatient vi sit 25 minutes Zoran Arceo Work Phone: [facility] Work Phone: Start: 12-10-2021 ambulatory Zoran Hermosillo Arceo Facil [id number] Start: 10-29-2021 Office outpatient vi sit 25 minutes Zoran Arceo Work Phone: [facility] Work Phone: Start: 10-29-2021 ambulatory Zoran Arceo Facil [id number] Start: 10-11-2021 AUDIT Zoran Wilda Walker Work Phone: [facility] Work Phone: Start: 09-04-2021 Office outpatient ne w 30 minutes Zoran Wilda Walker Work Phone: [facility] 300 Work Phone: Start: 09-04-2021 ambulatory Zoran Arceo Facil [id number] Start: 08-02-2021 AUDIT Zoran O Arceo Work Phone: [facility] Work Phone: Start: 07-31-2021 Office outpatient vi sit 15 minutes Zoran Wilda Arceo Work Phone: [facility] Work Phone: Start: 07-31-2021 ambulatory Ms. Katie Rojas Fa cility:[id number] Start: 06-04-2021 Adv care pln tlkd & alt dcsn maker docd Zoran Arceo Work Phone: [facility] Work Phone: Start: 06-04-2021 ambulatory Zoran Arceo Facil [id number] Start: 05-30-2021 Chart Update Zoran Wilda Walker Work Phone: [facility] Work Phone: Start: 05-24-2021 AUDIT Zoran Wilda Arceo Work Phone: [facility] Work Phone: Start: 04-23-2021 AUDIT Zoran Arceo Work Phone: [facility] Work Phone: Start: 03-22-2021 AUDIT Zoran O Arceo Work Phone: [facility] Work Phone: Start: 02-27-2021 Office outpatient vi sit 25 minutes Zoran O Arceo Work Phone: [facility] Work Phone: Start: 02-23-2021 Chart Update Zoran O Arceo Work Phone: [facility] Work Phone: Start: 01-12-2021 AUDIT [facility]oran O Arceo [facility]: [facility] Work Phone: Start: 01-03-2021 AUDIT Zoran O Arceo Work Phone: [facility] Work Phone: Start: 01-02-2021 AUDIT Zoran O Arceo Work Phone: [facility] Work Phone: Start: 12-21-2020 End: 12-21-2020 Emergency department patient visit Sawyer Zarco [facility] Emergency 03 Start: 11-27-2020 Office outpatient vi sit 25 minutes Zoran O Arceo [facility] Work Phone: Start: 11-24-2020 Chart Update Zoran O Arceo Work Phone: [facility] Work Phone: Start: 10-26-2020 AUDIT Zoran O Arceo Work Phone: [facility] Work Phone: Start: 10-24-2020 AUDIT Zoran O Arceo Work Phone: [facility] Work Phone: Start: 10-05-2020 Office outpatient vi sit 25 minutes Zoran O Arceo Work Phone: [facility] Work Phone: Start: 09-20-2019 Patient encounter procedure Tejas Yeh [facility] Work Phone: Start: 06-18-2019 Patient encounter procedure Tejas Yeh [facility] Work Phone: Start: 05-18-2019 Patient encounter procedure Zoran Arceo [facility] Work Phone: Start: 05-04-2019 Patient encounter procedure Zoran Arceo [facility] Work Phone: Start: 04-27-2019 Patient encounter procedure Zoran Arceo [facility] Work Phone: Patient encounter procedure Zoran Mastersyder Work Phone: [facility] Work Phone: End: 06-04-2021 Patient encounter procedure Zoran Astudillo Walker Work Phone: [facility] Work Phone: Procedures Date Procedure Procedure Detail Performing Clinician Start: 09-29-2023 Lipid 1996 panel - S lavon or Plasma Zoran Arceo MD Work Phone: Start: 08-22-2023 VASC US LOWER EXTREM ITY VENOUS DUPLEX LEFT ZORAN ARCEO Start: 08-22-2023 Dup-scan xtr veins unilateral/limited study Zoran Arceo MD Work Phone: Start: 07-30-2023 PROSTATE SPECIFIC ANTIGEN ZORAN ARCEO Start: 05-13-2023 FOLLOW UP IN FAMILY MEDICINE ZORAN ARCEO Start: 05-07-2023 Comprehensive metabo lic 2000 panel - Serum or Plasma ZORAN ARCEO Start: 05-07-2023 Hemoglobin A1c/Hemoglobin.total in Blood ZORAN ARCEO Start: 05-28-2022 Radex ribs uni w/pos teroant ch minimum 3 views Tomas Ramirez [employer] Work Phone: Start: 05-27-2022 Lipid 1996 panel - S lavon or Plasma Zoran Arceo MD Work Phone: Start: 12-21-2020 End: 12-21-2020 EKG impression Sawyer Murillo Zarco Start: 05-04-2019 Basic metabolic 1998 panel - Serum or Plasma Zoran Arceo Start: 04-27-2019 Sedimentation rate r bc automated Zoran Arceo Start: 04-19-2019 Electrocardiogram Start: 11-28-2016 Colonoscopy Zoran stewart Work Phone: Colonoscopy Zoran Arceo End: 11-28-2016 Colonoscopy Tejas Ruba [facility] Zoran Arceo Plan of Treatment Date Care Activity Detail Author Start: 09-28-2028 Lipid panel Lipid Panel [facility] Start: 09-25-2028 DTaP/Tdap/Td Vaccine s (3 - Td or Tdap) DTaP/Tdap/Td Vaccines (3 - Td or Tdap) [facility] Start: 09-25-2028 Urine microalbumin profile [facility] Start: 05-27-2027 Lipid panel Lipid Panel [facility] Start: 11-06-2026 Diabetes Screening Diabetes Screenin g [facility] Start: 11-06-2024 Creatinine measurement Serum Creatin ine [facility] Start: 09-29-2024 Medicare Annual Wellness Visit Medicare Annual Wellness Visit (AWV) [facility] Start: 09-28-2024 Complete blood count Hemoglobin/Enrico tocrit [facility] Start: 06-24-2024 End: 06-24-2024 Patient encounter procedure 06/24/2024 4:00 PM EST Office Visit Neurology [address] [id number] Trent Degroot MD [address] [place] [address] 6 month follow up Neurology Comment on above: 6 month follow up Start: 05-07-2024 Diabetes mellitus screening Diabetes Screening [facility] Start: 04-08-2024 End: 04-08-2024 Patient encounter procedure 04/08/2024 10:00 AM EST Office Visit Neurology [address] [phone] Devika Degroot, [employer] [address] [id number] 3 month follow up Neurology Comment on above: 3 month follow up Start: 02-11-2024 End: 02-10-2025 Comprehensive metabolic 2000 panel - Serum or Plasma Comprehensive Metabolic Panel Lab Routine Primary hypertension Hypercalcemia Expected: 02/11/2024 (Approximate), Expires: 02/10/2025 [facility] Service Area Work Phone: Comment on above: Expected: 02/11/2024 (Approximate), Expires: 02/10/2025 Start: 02-11-2024 End: 02-10-2025 Parathyrin.intact [Mass/volume] in Serum or Plasma Parathyroid Hormone, Intact Lab Routine Hypercalcemia Expected: 02/11/2024 (Approximate), Expires: 02/10/2025 [facility] Work Phone: Comment on above: Expected: 02/11/2024 (Approximate), Expires: 02/10/2025 Start: 02-11-2024 End: 02-10-2025 Prostate specific Ag [Mass/volume] in Serum or Plasma Prostate Specific Antigen Lab Routine Prostate cancer (Multi) Expected: 02/11/2024 (Approximate), Expires: 02/10/2025 [facility] Work Phone: Comment on above: Expected: 02/11/2024 (Approximate), Expires: 02/10/2025 Start: 01-23-2024 End: 01-23-2024 ambulatory 01/23/2024 1:30 PM EDT OT/PT/Speech Visit REPLACED BY [facility] [address] [place] [address] Rasheeda Agosto, PT [address] [facility] [place], [place] [id number] PT for parkinsons REPLACED BY [facility] Comment on above: PT for parkinsons Start: 01-20-2024 End: 01-20-2024 Patient encounter procedure 01/20/2024 1:30 PM EDT Office Visit Urology [address] [address] Denver Cho MD [address] [place] [address] Prostate cancer, pt instructed to hand carry images on disc and have med records faxed Urology Comment on above: Prostate cancer, pt instructed to hand carry images on disc and have med records faxed Start: 12-25-2023 End: 12-25-2023 Patient encounter procedure 12/25/2023 1:00 PM EDT Office Visit Neurology [address] [phone] Trent Degroot MD [address] [place] [address] pd Neurology Comment on above: Start: 12-21-2023 Covid-19 Vaccine ( season) Covid-19 Vaccine () [facility] Start: 12-21-2023 Covid-19 Vaccine ( season) Covid-19 Vaccine ( season) [facility] Start: 12-21-2023 Influenza vaccination C [facility] Start: 11-11-2023 End: 05-13-2024 CBC panel - Blood by Automated count CBC Lab Routine Benign essential hypertension Expected: 11/11/2023 (Approximate), Expires: 05/13/2024 [facility] Service Area Work Phone: Comment on above: Expected: 11/11/2023 (Approximate), Expires: 05/13/2024 Start: 11-11-2023 End: 05-13-2024 Comprehensive metabolic 2000 panel - Serum or Plasma Comprehensive Metabolic Panel Lab Routine Benign essential hypertension Expected: 11/11/2023 (Approximate), Expires: 05/13/2024 [facility] Work Phone: Comment on above: Expected: 11/11/2023 (Approximate), Expires: 05/13/2024 Start: 11-11-2023 End: 05-13-2024 Lipid 1996 panel - Serum or Plasma Lipid Panel Lab Routine Mixed hyperlipidemia Expected: 11/11/2023 (Approximate), Expires: 05/13/2024 [facility] Work Phone: Comment on above: Expected: 11/11/2023 (Approximate), Expires: 05/13/2024 Start: 11-11-2023 End: 11-11-2023 Patient encounter procedure 11/11/2023 10:00 AM EDT Office Visit [facility] [address] [place] [phone] Zoran Arceo MD [address] [facility], [address] [place] [address] [facility] Start: 09-29-2023 End: 09-28-2024 PSA, total and free PSA, total and free Lab Routine Elevated PSA Expected: 09/29/2023 (Approximate), Expires: 09/28/2024 [facility] Service Area Work Phone: Comment on above: Expected: 09/29/2023 (Approximate), Expires: 09/28/2024 Start: 08-22-2023 End: 08-22-2023 Patient encounter procedure 08/22/2023 8:00 AM EDT Appointment [facility] [address] [id number] [facility] Start: 08-21-2023 End: 08-20-2025 Lower extremity venous duplex left Lower extremity venous duplex left Vascular Ultrasound Routine Hematoma Leg edema, left Expected: 08/21/2023 (Approximate), Expires: 08/20/2025 [facility] Service Area Work Phone: Comment on above: Expected: 08/21/2023 (Approximate), Expires: 08/20/2025 Start: 05-31-2023 Medicare Annual Wellness Visit Medicare Annual Wellness Visit (AWV) [facility] Start: 04-21-2023 Advance Directive Discussion Advance Directive Discussion [facility] Start: 04-21-2023 Behavioral Health Screening Behavioral Health Screening [facility] Start: 12-26-2022 End: 11-26-2023 Basic metabolic 2000 panel - Serum or Plasma Basic Metabolic Panel Lab Routine Impaired fasting glucose Acquired adrenal hyperplasia (CMS/HCC) Expected: 12/26/2022 (Approximate), Expires: 11/26/2023 [facility] Service Area Work Phone: Comment on above: Expected: 12/26/2022 (Approximate), Expires: 11/26/2023 Start: 12-26-2022 End: 11-26-2023 Cortisol [Mass or Moles/volume] in Serum or Plasma --AM peak specimen Cortisol AM Lab Routine Acquired adrenal hyperplasia (CMS/HCC) Expected: 12/26/2022 (Approximate), Expires: 11/26/2023 [facility] Work Phone: Comment on above: Expected: 12/26/2022 (Approximate), Expires: 11/26/2023 Start: 12-26-2022 End: 11-26-2023 Hemoglobin A1c/Hemoglobin.total in Blood Hemoglobin A1c Lab Routine Impaired fasting glucose Expected: 12/26/2022 (Approximate), Expires: 11/26/2023 [facility] Work Phone: Comment on above: Expected: 12/26/2022 (Approximate), Expires: 11/26/2023 Start: 12-26-2022 End: 11-26-2023 Prostate specific Ag [Mass/volume] in Serum or Plasma Prostate Specific Antigen Lab Routine Benign prostatic hyperplasia with nocturia PSA elevation Expected: 12/26/2022 (Approximate), Expires: 11/26/2023 [facility] Work Phone: Comment on above: Expected: 12/26/2022 (Approximate), Expires: 11/26/2023 Start: 12-20-2022 COVID-19 Vaccine ( season) COVID-19 Vaccine ( season) [facility] Start: 12-20-2022 Influenza vaccination Influenza Vacc ine (#1) [facility] Start: 11-25-2022 End: 11-26-2023 XR Chest 2 Views XR chest 2 views Imaging Routine Chronic cough Expected: 11/25/2022, Expires: 11/26/2023 [facility] Work Phone: Comment on above: Expected: 11/25/2022 , Expires: 11/26/2023 Start: 05-31-2022 EPV, Provider: Zoran Arceo, Status: Pen, Time: 2:00 PM EPV, Provider: Zoran Arceo, Status: Pen, Time: 2:00 PM [facility] Work Phone: Start: 05-27-2022 EPV, Provider: Zoran Arceo, Status: Pen, Time: 9:00 AM EPV, Provider: Zoran Arceo, Status: Pen, Time: 9:00 AM [facility] Work Phone: Start: 04-21-2022 ADVANCE DIRECTIVE DISCUSSION ADVANCE DIRECTIVE DISCUSSION [facility] Start: 04-21-2022 DEPRESSION [facility]ESSMENT [facility] Start: 04-20-2022 DIABETES SCREEN DIABETES SCREEN [facility] Start: 04-20-2022 Diabetes Screening Diabetes Screenin g [facility] Start: 01-08-2022 FUV, Provider: Yovani Spears, Status: Pen, Time: 11:00 AM FUV, Provider: Yovani Spears, Status: Pen, Time: 11:00 AM [facility] Work Phone: Start: 12-10-2021 EPV, Provider: Zoran Arceo, Status: Pen, Time: 8:30 AM EPV, Provider: Zoran Arceo, Status: Pen, Time: 8:30 AM [facility] Work Phone: Start: 12-06-2021 FUV, Provider: Yovani Spears, Status: Pen, Time: 9:00 AM FUV, Provider: Yovani Spears, Status: Pen, Time: 9:00 AM [facility] Work Phone: Start: 09-04-2021 NPV, Provider: Yovani Spears, Status: Pen, Time: 10:00 AM NPV, Provider: Yovani Spears, Status: Pen, Time: 10:00 AM [facility] Work Phone: Start: 06-04-2021 EPV, Provider: Zoran Arceo, Status: Pen, Time: 8:30 AM EPV, Provider: Zoran Arceo, Status: Pen, Time: 8:30 AM [facility] Work Phone: Start: 06-04-2021 Patient encounter procedure [facility] Start: 12-21-2020 End: 12-22-2021 Sodium Chloride 0.9% Infusion . ; IV Bag Volume = 1,000 mL Run at: 125 mL/hr IntraVenous Start: 21-Dec-2020 End: 21-Dec-2021 Ordered: 21-Dec-2020 Sawyer Zarco [facility] Start: 11-27-2020 EPV, Provider: Zoran Arceo, Status: Lorne, Time: 8:30 AM EPV, Provider: Zoran Arceo, Status: Pen, Time: 8:30 AM [facility] Work Phone: Start: 09-15-2020 Diabetes mellitus screening Diabetes Screening [facility] Start: 04-20-2020 Creatinine measurement Serum Creatin ine [facility] Start: 04-20-2020 SERUM CREATININE SERUM CREATININE Cl [facility] Start: 04-19-2020 Complete blood count Hemoglobin/Enrico tocrit [facility] Start: 04-19-2020 HEMOGLOBIN/HEMATOCRIT HEMOGLOBIN/HEM ATOCRIT [facility] Start: 02-02-2019 RSV High Risk: (Elderly (60+) or Population) (1 - 1-dose 75+ series) RSV High Risk: (Elderly (60+) or Population) (1 - 1-dose 75+ series) [facility] Start: 02-02-2019 RSV Vaccine (1 - 1-dose 75+ series) RSV Vaccine (1 - 1-dose 75+ series) [facility] Start: 2004 Hepatitis B Vaccines (1 of 3 - Risk 3-dose series) Hepatitis B Vaccines (1 of 3 - Risk 3-dose series) [facility] Start: 2004 RSV patient s and/or patients aged 60+ years (1 - 1-dose 60+ series) RSV patients and/or patients aged 60+ years (1 - 1-dose 60+ series) [facility] Start: 2004 RSV Vaccine (1 - 1-dose 60+ series) RSV Vaccine (1 - 1-dose 60+ series) [facility] Start: 02-02-1994 SHINGRIX VACCINE (1 of 2) SHINGRIX VACCINE (1 of 2) [facility] Start: 02-02-1994 Zoster Vaccines (1 o f 2) Zoster Vaccines (1 of 2) [facility] Start: 02-02-1963 Hepatitis A Vaccines (1 of 2 - Risk 2-dose series) Hepatitis A Vaccines (1 of 2 - Risk 2-dose series) [facility] Start: 02-02-1963 Urine screening for protein CKD: Urine Protein Screening [facility] Start: 02-02-1962 ANNUAL PCP TEAM CHRONIC DISEASE VISIT ANNUAL PCP TEAM CHRONIC DISEASE VISIT [facility] Start: 02-02-1962 Anxiety Screening Anxiety Screening [facility] Start: 02-02-1962 BP CONTROLLED (<130/80) BP CONTROLLED (<130/80) [facility] Start: 02-02-1962 Depression Screening Depression Scre ening [facility] Start: 02-02-1962 HEPATITIS C SCREENING HEPATITIS C [facility] Start: 02-02-1962 Hepatitis C screening Hepatitis C [facility] Start: 1944 COVID-19 VACCINE (#1) COVID-19 VACCI NE (#1) [facility] Start: 1944 Medicare Annual Wellness Visit Medicare Annual Wellness Visit (AWV) [facility] Basic metabolic 1998 panel - Serum or Plasma Basic Metabolic Panel [facility] Work Phone: Comment on above: Approx [id number] OUTSIDE SURG PATH SLIDE REVIEW OUTSIDE SURG PATH SLIDE REVIEW Lab Routine Ordered: 02/10/2024 [facility] Work Phone: Comment on above: Ordered: 02/10/2024 URINALYSIS, REFLEX MICROSCOPIC URINALYSIS, REFLEX MICROSCOPIC Lab Routine Screening for genitourinary condition Ordered: 01/23/2024 [facility] Work Phone: Comment on above: Ordered: 01/23/2024 [facility] Work Phone: Fluzone High-Dos e 0.5 ML Intramuscular Suspension Prefilled Syringe INJECT 0.5 ML Intramuscular Ordered: 18-May-2019 Active [facility] Work Phone: NEGATED: Highlighted row has been ruled out! Planned Goals not documented [facility] Work Phone: Immunizations Immunization Date Immunization Notes Care Provider [facility] 02-11-2024 influenza, high dose seasonal, preservative-free Zoran Arceo MD Work Phone: [facility] Work Phone: 01-09-2023 Flu vaccine, quadrivalent, high-dose, preservative free, age 65y+ (FLUZONE) Zoran Arceo MD Work Phone: [facility] Work Phone: 01-09-2023 influenza virus vaccine, unspecified formulation Trent Degroot MD Work Phone: [facility] 04-02-2022 Fluzone High-Dose Quadrivalent 0.7 ML Intramuscular Suspension Prefilled Syringe; Translations: [Fluzone High-Dose Quadrivalent 0.7 ML Intramuscular Suspension Prefilled Syringe] Zoran Arceo Work Phone: [facility] Work Phone: Comment on above: Series: 04-02-2022 influenza, high dose seasonal, preservative-free Zoran Arceo MD Work Phone: [facility] Work Phone: 04-02-2022 influenza, seasonal, injectable Zoran Arceo Work Phone: [facility] Work Phone: Comment on above: Series: 04-02-2022 influenza virus vaccine, unspecified formulation Zoran Arceo MD Work Phone: [facility] Work Phone: 02-27-2021 Fluzone High-Dose Quadrivalent 0.7 ML Intramuscular Suspension Prefilled Syringe; Translations: [Fluzone High-Dose Quadrivalent 0.7 ML Intramuscular Suspension Prefilled Syringe] Zoran Arceo Work Phone: [facility] Comment on above: Series: 02-27-2021 influenza, seasonal, injectable Zoran Arceo Work Phone: [facility] Work Phone: Comment on above: Series: 03-27-2020 Fluzone High-Dose Quadrivalent 0.7 ML Intramuscular Suspension Prefilled Syringe; Translations: [Fluzone High-Dose Quadrivalent 0.7 ML Intramuscular Suspension Prefilled Syringe] Zoran Arceo Work Phone: [facility] Comment on above: Series: 03-27-2020 influenza, high dose seasonal, preservative-free Zoran Arceo MD Work Phone: [facility] Work Phone: 05-18-2019 influenza, high dose seasonal, preservative-free; Translations: [Fluzone High-Dose 0.5 ML Intramuscular Suspension Prefilled Syringe] Zoran Arceo Work Phone: [facility] Comment on above: Series: 05-18-2019 influenza, high dose seasonal, preservative-free; Translations: [Fluzone High-Dose 0.5 ML Intramuscular Suspension Prefilled Syringe] Zoran Acreo [facility] Work Phone: 09-25-2018 tetanus toxoid, redu cooper diphtheria toxoid, and acellular pertussis vaccine, adsorbed Zoran Mastersyder [facility] Comment on above: Series: 06-01-2018 influenza, high dose seasonal, preservative-free; Translations: [Influenza, high dose seasonal, preservative-free] Zoran Arceo [facility] Comment on above: Series: 02-24-2017 influenza, injectabl e, quadrivalent, preservative free Zoran Arceo Work Phone: [facility] 08-26-2016 pneumococcal conjuga te vaccine, 13 valent Zoran Arceo [facility] Comment on above: Series: 02-22-2013 pneumococcal polysaccharide vaccine, 23 valent Zoran Arceo [facility] Comment on above: Series: 04-24-2005 TD(adult) unspecifie d formulation Tomas Ramirez [employer] Work Phone: [facility] 04-24-2005 tetanus toxoid, redu cooper diphtheria toxoid, and acellular pertussis vaccine, adsorbed Zoran Arceo [facility] Comment on above: Series: 01-05-1992 TD(adult) unspecifie d formulation Zoran Arceo Work Phone: [facility] Payers Date Payer Category Payer Medicare [id number] 2018 Medicare (Managed Care) [employer] Member Subscriber Plan / Payer (Effective 2018-Present) Name: Pete Odonnell Relation to Subscriber: Self Name: Pete Odonnell Payer ID: [id number] (NAIC) Type: Not on file Address: [place] [id number] 2018 Private Health Insurance [id number] 1944 Unknown [id number] 2.840.1.921732.3.579. 2.356 1944 Unknown [id number] 2.840.1.297117.3.579. 2.356 1944 Unknown [id number] 2.840.1.699281.3.579. 2.356 1944 Unknown [id number] 2.16840.1.286004.3.579. 2.356 1944 Unknown [id number] 2.840.1.066425.3.579. 2.356 1944 Unknown [id number] 2.840.1.243488.3.579. 2.356 1944 Unknown [id number] 2.16.840.1.765468.3.579. 2.356 1944 Unknown [id number] 2.16.840.1.401371.3.579. 2.356 1944 Unknown [id number] 2.16.840.1.479435.3.579. 2.1069 1944 Unknown [id number] 2.16.840.1.668289.3.579. 2.1243 1944 Unknown [id number] 2.16.840.1.837704.3.579. 2.1244 1944 Unknown [id number] 2.16.840.1.186229.3.579. 2.1244 1944 Unknown [id number] 2.16.840.1.488933.3.579. 2.1244 1944 Unknown [id number] 2.16.840.1.877734.3.579. 2.1244 1944 Unknown [id number] 2.16.840.1.370655.3.579. 2.1244 1944 Unknown [id number] 2.16.840.1.004480.3.579. 2.1245 1944 Unknown [id number] 2.16.840.1.444258.3.579. 2.1245 1944 Unknown [id number] 2.16.840.1.799658.3.579. 2.1245 1944 Unknown [id number] 2.16.840.1.050481.3.579. 2.1245 1944 Unknown [id number] 2.16.840.1.501508.3.579. 2.1245 1944 Unknown [id number] 2.16.840.1.202635.3.579. 2.1245 Unknown Social History Date Type Detail Facility Start: 11-25-2022 End: 01-09-2024 Never a smoker Never a smoker [facility] Work Phone: Tobacco smoking consumption unknown [facility] Start: 12-08-2017 End: 12-25-2023 Tobacco smoking status NHIS Never smoked tobacco [facility] Start: 12-08-2017 End: 12-25-2023 Tobacco use and exposure Smokeless tobacco non-user [facility] Start: 05-28-2022 End: 02-10-2024 Alcohol intake Current non-drinker of alcohol (finding) [facility] Start: 1945 Sex Assigned At Not on file [facility] Start: 11-25-2022 End: 02-11-2024 Alcohol intake Lifetime non-drinker (finding) [facility] Work Phone: Start: 11-25-2022 End: 01-09-2024 Tobacco use panel [facility] Work Phone: Start: 11-15-2022 End: 02-11-2024 Exposure to SARS-CoV-2 (event) Not sure [facility] PHQ2 Score 0 [facility] NEGATED: Highlighted row - - [facility] Work Phone: Functional Status Date Assessment Result Facility NEGATED: Highlighted row Functional performance Functional status health issues are not documented Disease [facility] Work Phone: Mental Status Date Assessment Result Facility NEGATED: Highlighted row Cognitive function [Interpretation] Cognitive status health issues are not documented Disease [facility] Work Phone: Clinical Notes 04-20-2019 to 02-11-2024 Zoran Arceo MD - 02/11/2024 10:00 AM Christi Campbell MD - 02/10/2024 9:00 AM EDTPatient JoanaWalTrent prieto MD - 01/09/2024 4:00 PM EDTPatient InstructionsPatient Instructions Note Date & Type Note Facility 02-11-2024 History of Present illness Narrative Subjective Patient ID: Pete Odonnell is a 79 y.o. male who presents for Med Management. HPI Acquired adrenal hyperplasia - lytes good last time. Actinic keratoses - Has been to [facility]. Cream to use on hands. 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 Has lesions on the chest that are raised and black C/W SK. Allergic rhinitis per ENT. Also noted deviated septum. Flonase helps. Still plugged on one side. Dr Dennis saw him for this discussed surgery. But not ready to do that. Voice is weak at times due to PD. Clears throat a lot. Clear CXR Benign prostatic hypertrophy and Walden 7 aProstatic Cancer - nocturia x 1. No daytime urgency. Finasteride. Dr Jacobo who recommended hormonal therapy and radiation for CA and then to [facility] (Dr Cho and Dr Shaikh. They are going to monitor for now. Will check today on way out. 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 Some pain at times and limits motion. Seems better now. Essential familial hyperlipidemia - Med works well without side effects. In September 2023 Essential hypertension - No Chest pain, palpitations, numbness, weakness, claudications, or double vision/ loss of vision. Some FONTANA. No longer has headaches. Not lightheaded. Edema in both ankles when on feet a lot. Compression helps. No orthopnea. Did drop the nifedipine and did help tiredness and swelling is better. CMP good with GFR up to 65 last time from 55. His daughter thought the Losartan that he was put on in December is making the tremor worse, but he was on that before so not likely. Gastroesophageal reflux disease - Tums on occasion. No HB (unless spicy foods), Melena, or hematochezia. Will hang up in esophagus if he eats too fast or too dry. Headache when stressed but generally doing OK Hypercalcemia was up a bit last time with ionized as well at 1.36. PTH up also at 106. IFG - a little high at 111 last time but A1C 5.6 in April 2023. Parkinsons - Mainly tremor [facility] thinks from [facility] [place]. Does not affect eating writing. Saw Dr Trent Degroot at [facility]. On Sinemet and Remeron and sleeping better. Stress and cold will worsen. Less stiffness of arms and legs but also has OA. Right knee pain injured when moving equipment. Not swollen. Pain with walking medially. Has discussed injections and TKR. Gel helps. Doing better. Tinnitus off and on. Elevated PSA up to 8.24 from 7.1 and 4.92 a year ago. See above Colonoscopy 11/28/16 LW and DPA - daughter Jessica Review of Systems Objective BP 134/78 (BP Location: Left arm, Patient Position: Sitting) Pulse 71 Wt 81.6 kg (180 lb) SpO2 96% BMI 28.19 kg/m Physical Exam Vitals reviewed. Constitutional: General: He is not in acute distress. Appearance: Normal appearance. HENT: Head: Normocephalic. Right Ear: Tympanic membrane, ear canal and external ear normal. Left Ear: Tympanic membrane, ear canal and external ear normal. Nose: Nose normal. Mouth/Throat: Mouth: Mucous membranes are moist. Pharynx: Oropharynx is clear. Eyes: Extraocular Movements: Extraocular movements intact. Conjunctiva/sclera: Conjunctivae normal. Pupils: Pupils are equal, round, and reactive to light. Neck: Vascular: No carotid bruit. Cardiovascular: Rate and Rhythm: Normal rate and regular rhythm. Pulses: Normal pulses. Heart sounds: Normal heart sounds. No murmur heard. Pulmonary: Effort: Pulmonary effort is normal. No respiratory distress. Breath sounds: Normal breath sounds. Abdominal: General: Abdomen is flat. Bowel sounds are normal. There is no distension. Palpations: Abdomen is soft. There is no mass. Tenderness: There is no abdominal tenderness. Musculoskeletal: General: Deformity (Kyphosis) present. Cervical back: Normal range of motion. Rigidity present. No tenderness. Lymphadenopathy: Cervical: No cervical adenopathy. Skin: General: Skin is warm and dry. Findings: No rash. Neurological: General: No focal deficit present. Mental Status: He is alert and oriented to person, place, and time. Comments: Tremor of hands at rest Flat facial affect Cogwheeling at elbows Psychiatric: Mood and Affect: Mood normal. Thought Content: Thought content normal. Judgment: Judgment normal. Assessment/Plan Diagnoses and all orders for this visit: Acquired adrenal hyperplasia (Multi) Immunization due - Flu vaccine, trivalent, preservative free, HIGH-DOSE, age 65y+ (Fluzone) Actinic keratosis Benign essential hypertension Benign prostatic hyperplasia with nocturia Cervical spondylosis without myelopathy Deviated nasal septum Elevated PSA Essential familial hyperlipidemia Gastroesophageal reflux disease without esophagitis - Follow Up In Primary Care - Established; Future Headache, temporal Primary hypertension - Comprehensive Metabolic Panel; Future Mixed hyperlipidemia Impaired fasting glucose Insomnia due to medical condition Liver cyst Primary osteoarthritis of right knee Prostate cancer (Multi) - Prostate Specific Antigen; Future Rhinitis, nonallergic, chronic Symptomatic Parkinson disease (Multi) Tinnitus of both ears Hypercalcemia - Comprehensive Metabolic Panel; Future - Parathyroid Hormone, Intact; Future Other orders - Follow Up In Primary Care - Established documented in this encounter [facility] Work Phone: 02-10-2024 History of Present illness Narrative Radiation Oncology - Prostate Cancer New Patient/Consult Note PATIENT NAME: Pete Odonnell PATIENT REQUESTING PROVIDER: Denver Cho MD DIAGNOSIS: 79 year old male with prostate adenocarcinoma, initial PSA 8.24, biopsy Walden score 3 + 4 = 7 (grade group 2), clinical stage T1c, N0, M0, stage IIB [T1-T2, N0, M0, PSA <20, GG 2] (AJCC 8th ed.), s/p biopsy. NCCN Risk Group: Intermediate risk HPI: 79 year old male with prostate adenocarcinoma who presents for an opinion regarding the role of radiation therapy in the management of the patient's disease. Final recommendations will be communicated back to the requesting physician by way of the shared medical record, or letter to requesting physician via US mail. The patient was diagnosed with prostate cancer and comes in today to discuss treatment options. Pete Odonnell initially presented with rising PSA beginning spring of this year. PSA zabrina to 8.24 on 11/07/2023. He underwent biopsy on 12/17/2023 which showed Walden 3+4=7 prostate adenocarcinoma involving 4 of 6 total cores[address] He saw Dr. Cho who discussed management options. He presents today for the role for radiation in the management of his disease. Today, he feels well and presents with his daughter. Reports nocturia - gets up 3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 6PM Sinemet 25/100 1 1 1 Return at or around: 03/25/24 Thank you for allowing me to be part of the clinical care of this patient! I look forward to continued participation in the patient s care with you. Please do not hesitate to call with any questions. Sincerely, Trent Degroot MD documented in this encounter [facility] 10-10-2023 Telephone encounter Note Phone call placed spoke to patient and daughter while on speaker phone reported increased parkinson symptoms x3 years, tremors, balance, anxiety, sleep. Scheduled self through MyChart in 20 min appointment slot last visit [address] Singh. Offered patient to schedule with MQ, sooner appointment , declined stated already scheduled with a new Neurologist in [place], requested to cancel appt. Abigail Martel LPN [facility] 10-10-2023 Miscellaneous Notes Phone call placed spoke to patient and daughter while on speaker phone reported increased parkinson symptoms x3 years, tremors, balance, anxiety, sleep. Scheduled self through MyChart in 20 min appointment slot last visit [address] Singh. Offered patient to schedule with MQ, sooner appointment , declined stated already scheduled with a new Neurologist in [place], requested to cancel appt. Abigail Martel LPN documented in this encounter [facility] 09-29-2023 History of Present illness Narrative Subjective Reason for Visit: Pete Odonnell is an 78 y.o. male here for a Medicare Wellness visit. Past Medical, Surgical, and Family History reviewed and updated in chart. Reviewed all medications by prescribing practitioner or clinical pharmacist (such as prescriptions, OTCs, herbal therapies and supplements) and documented in the medical record. HPI Has elevated PSA from 6.5 last fall to 7.4 in July. Would like to check again. Was scheduled to do a biopsy but was run down as not sleeping well. If high again would like to go back As far the sleep he has not been sleeping well for the last few weeks. Falls asleep most nights but then wakes up to go to bathroom. Cannot stay awake in daytime. He is on Tamsulosin and Proscar. Will get up 2-3 times. Will try Trazodone for the sleep but has not tried melatonin so will do that first . HTN was up for awhile. Jumps around. Will go as high as 160. Better since increase of Losartan a few weeks ago.. No Chest pain, Dyspnea, palpitations, numbness, weakness, claudications, or double vision/ loss of vision. Swelling in ankles Parkinson's - To see a doctor at [facility] in December. Shaking more Memory loss of words and names. Trying a gummy LW and DPA yes daughter Jessica Patient Care Team: Zoran Arceo MD as PCP - General Zoran Arceo MD as PCP - [employer] PCP Review of Systems Objective Vitals: BP 130/80 (BP Location: Left arm, Patient Position: Sitting) Pulse 56 Ht 1.702 m (5' 7 ) Wt 77.1 kg (170 lb) SpO2 99% BMI 26.63 kg/m Physical Exam Vitals reviewed. Constitutional: Appearance: Normal appearance. HENT: Head: Normocephalic. Eyes: Extraocular Movements: Extraocular movements intact. Conjunctiva/sclera: Conjunctivae normal. Pupils: Pupils are equal, round, and reactive to light. Neck: Vascular: No carotid bruit. Cardiovascular: Rate and Rhythm: Normal rate and regular rhythm. Heart sounds: No murmur heard. Pulmonary: Effort: Pulmonary effort is normal. Breath sounds: Normal breath sounds. Abdominal: General: Abdomen is flat. Bowel sounds are normal. Palpations: Abdomen is soft. Musculoskeletal: Cervical back: Normal range of motion and neck supple. No tenderness. Right lower leg: No edema. Left lower leg: No edema. Lymphadenopathy: Cervical: No cervical adenopathy. Skin: General: Skin is warm and dry. Neurological: Mental Status: He is alert and oriented to person, place, and time. Comments: Cogwheeling of left elbow Cannot fully extend elbows or knees Flat facial affect Psychiatric: Mood and Affect: Mood normal. Behavior: Behavior normal. Thought Content: Thought content normal. Judgment: Judgment normal. Assessment/Plan Problem List Items Addressed This Visit BPH (benign prostatic hyperplasia) Insomnia Lymphedema of both lower extremities Symptomatic Parkinson disease (Multi) Other Visit Diagnoses Routine general medical examination at health care facility - Primary Elevated PSA Relevant Orders PSA, total and free documented in this encounter [facility] Work Phone: 09-29-2023 Instructions Zoran Arceo MD - 09/29/2023 11:30 AM EDT Melatonin 5 mg every evening for sleep documented in this encounter [facility] Work Phone: 08-21-2023 History of Present illness Narrative Subjective Patient ID: Pete Odonnell is a 78 y.o. male who presents for evaluate (Bilateral swelling in feet, left leg and foot bruised). HPI Kicked in the leg a week ago Now with black and blue foot Both feet swollen The swelling has been an issue for awhile He thought the Flomax he thought was helping the swelling The right one does go down in AM but not the left No Chest pain, Dyspnea, orthopnea, palpitations, numbness, weakness, claudications, or double vision/ loss of vision. Review of Systems Objective BP 132/74 (BP Location: Left arm, Patient Position: Sitting) Pulse 64 Wt 79.4 kg (175 lb) SpO2 95% BMI 27.41 kg/m Physical Exam Constitutional: Appearance: Normal appearance. He is normal weight. Cardiovascular: Rate and Rhythm: Normal rate and regular rhythm. Pulses: Dorsalis pedis pulses are 3+ on the right side and 3+ on the left side. Posterior tibial pulses are 3+ on the right side and 2+ on the left side. Pulmonary: Effort: Pulmonary effort is normal. No respiratory distress. Breath sounds: Normal breath sounds. No wheezing. Musculoskeletal: General: No tenderness (no tenderness of the left calf). Right lower le+ Edema present. Left lower le+ Edema present. Skin: General: Skin is warm and dry. Findings: Bruising (medial knee and around ankle) present. Neurological: General: No focal deficit present. Mental Status: He is alert and oriented to person, place, and time. Comments: Resting tremor Psychiatric: Mood and Affect: Mood normal. Behavior: Behavior normal. Thought Content: Thought content normal. Judgment: Judgment normal. Assessment/Plan Diagnoses and all orders for this visit: Hematoma Explained that the bruising at the ankle is normal for a bruise in the leg. Do not see evidence of DVT. But do want him to stay active and elevate legs when possible. Let me know if swelling worsens. But with the assymetric swelling will check Venous Duplex documented in this encounter [facility] Work Phone: 05-13-2023 History of Present illness Narrative Subjective Patient ID: Pete Odonnell is a 78 y.o. male who presents for Med Management. HPI Acquired adrenal hyperplasia - lytes good. Actinic keratoses - Has been to [facility]. Cream to use on hands. 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 Has lesion on the chest that was sore and finally went away. So will follow up with them Allergic rhinitis per ENT. Also noted deviated septum. Flonase helps. Still plugged on one side. Dr Dennis saw him for this discussed surgery. But not ready to do that. Voice is weak at times. Clears throat a lot. Clear CXR Benign prostatic hypertrophy - nocturia x 1. No daytime urgency. Flomax helps . 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 Some pain at times and limits motion. Essential familial hyperlipidemia - Med works well without side effects. In May 2022 Essential hypertension - No Chest pain, palpitations, numbness, weakness, claudications, or double vision/ loss of vision. Some F[place]. No longer has headaches. Not lightheaded. Edema in both ankles when on feet a lot. Compression helps. No orthopnea. Did drop the nifedipine and did help tiredness and swelling is any worse.. CMP good except GFR 55. Gastroesophageal reflux disease - Tums on occasion. No HB (unless spicy foods), Melena, or hematochezia. Will hang up in esophagus if he eats too fast or too dry. Headache when stressed but generally doing OK IFG - a little high at 107 but A1C. Parkinsons - Mainly tremor [place] thinks from [place]. Does not affect eating writing. Left only like when holding tea. Stress and cold will worsen. Has siffness of arms and legs but also has OA,. Right knee pain injured when moving equipment. Not swollen. Pain with walking medially. Has discussed injections and TKR. Gel helps. Doing better. Tinnitus off and on. PSA 02/05/23 Colonoscopy 11/28/16 Review of Systems Objective BP 124/76 (BP Location: Left arm, Patient Position: Sitting) Pulse 62 Ht 1.702 m (5' 7 ) Wt 78.5 kg (173 lb) SpO2 99% BMI 27.10 kg/m Physical Exam Vitals reviewed. Constitutional: General: He is not in acute distress. Appearance: Normal appearance. HENT: Head: Normocephalic. Right Ear: Tympanic membrane, ear canal and external ear normal. Left Ear: Tympanic membrane, ear canal and external ear normal. Nose: Nose normal. Mouth/Throat: Mouth: Mucous membranes are moist. Pharynx: Oropharynx is clear. Comments: Hoarse and clearing throat Eyes: Extraocular Movements: Extraocular movements intact. Conjunctiva/sclera: Conjunctivae normal. Pupils: Pupils are equal, round, and reactive to light. Neck: Vascular: No carotid bruit. Cardiovascular: Rate and Rhythm: Normal rate and regular rhythm. Pulses: Normal pulses. Heart sounds: Normal heart sounds. No murmur heard. Pulmonary: Effort: Pulmonary effort is normal. No respiratory distress. Breath sounds: Normal breath sounds. Abdominal: General: Abdomen is flat. Bowel sounds are normal. There is no distension. Palpations: Abdomen is soft. There is no mass. Tenderness: There is no abdominal tenderness. Musculoskeletal: Cervical back: Normal range of motion and neck supple. No tenderness. Comments: Resting tremor of hands that he can control No cogwheeling or stiffness of elbows or knees Lymphadenopathy: Cervical: No cervical adenopathy. Skin: General: Skin is warm and dry. Findings: No rash. Neurological: General: No focal deficit present. Mental Status: He is alert and oriented to person, place, and time. Psychiatric: Mood and Affect: Mood normal. Thought Content: Thought content normal. Judgment: Judgment normal. Assessment/Plan Diagnoses and all orders for this visit: Acquired adrenal hyperplasia (CMS/HCC) - Follow Up In Primary Care - Established; Future Primary hypertension - Follow Up In Primary Care - Established - Follow Up In Primary Care - Established; Future Impaired fasting glucose - Follow Up In Primary Care - Established Actinic keratosis Benign essential hypertension - CBC; Future - Comprehensive Metabolic Panel; Future Benign prostatic hyperplasia with nocturia Cervical spondylosis without myelopathy Deviated nasal septum Essential familial hyperlipidemia Gastroesophageal reflux disease without esophagitis Headache, temporal Mixed hyperlipidemia - Lipid Panel; Future Primary insomnia Lymphedema of both lower extremities Primary osteoarthritis of right knee Stage 3a chronic kidney disease (CMS/HCC) Symptomatic Parkinson disease Rhinitis, nonallergic, chronic Tinnitus of both ears documented in this encounter [facility] Work Phone: 11-25-2022 History of Present illness Narrative Subjective Patient ID: Pete Odonnell is a 77 y.o. male who presents for Med Management. HPI Acquired adrenal hyperplasia - low potassium.. GFR good this time at 73. Was 52 last time Actinic keratoses - Has been to [facility]. Cream to use on hands. 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 Has lesion on the chest that is sore and will not go away. So will follow up with them Allergic rhinitis per ENT. Also noted deviated septum. Flonase helps. Still plugged on one side. Dr Dennis saw him for this discussed surgery. But not ready to do that. Feels he coughs a lot and comes from the chest. Voice is weak at times. Will get follow up Xray. Had atelectasis when he had the rib fracture Benign prostatic hypertrophy - nocturia x 2-3. . No daytime urgency. Did not try the Flomax. 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 Some pain at times and limits motion. Essential familial hyperlipidemia - Med works well without side effects. In May 2022 Essential hypertension - No Chest pain, Dyspnea, palpitations, numbness, weakness, claudications, or double vision/ loss of vision. No longer has headaches. Not lightheaded. Edema in both ankles when on feet a lot. Compression helps. No orthopnea. Will drop the losartan hydrochlorothiazide and see if tiredness is better and if swelling is any worse and if potassium is better Gastroesophageal reflux disease - Tums on occasion. No HB, Melena, or hematochezia. Will hang up in esophagus if he eats too fast or too dry. Headache when stressed but generally doing OK IFG - alittle high at 107 last time but 187 non-fasting this time. Will check A1C next time. Parkinsons - Mainly tremor [place] thinks from [place]. Does not affect eating writing. Left only like when holding tea. Stress and cold will worsen. No stiffness of arms. Right knee pain injured when moving equipment. Not swollen. Pain with walking medially. Has discussed injections and TKR. Gel helps.. Doing better. Tinnitus off and on. PSA 05/27/22 a bit high. Will check next time. Colonoscopy 11/28/16 Review of Systems Objective BP 126/64 (BP Location: Left arm, Patient Position: Sitting) Pulse 58 Wt 78 kg (172 lb) SpO2 95% BMI 27.35 kg/m Physical Exam General: Alert and oriented, No acute distress. Eye: Pupils are equal, round and reactive to light, Extraocular movements are intact, Normal conjunctiva. HENT: Tympanic membranes are clear, Normal hearing, Oral mucosa is moist. Nose: Both nostrils congested and pink. Septum deviated to right. Sinus: Bilateral, Frontal sinus, Maxillary sinus, No tenderness. Throat: Pharynx (Not erythematous, No exudate ). Neck: Decreased rotation at 60 degrees Non-tender, No carotid bruit, No jugular venous distention, No lymphadenopathy, No thyromegaly. Carotid pulse: Bilaterally, Strong. Respiratory: Lungs are clear to auscultation, Respirations are non-labored, Breath sounds are equal, Symmetrical chest wall expansion. Cardiovascular: Normal rate, Regular rhythm, No murmur, No gallop, Good pulses equal in all extremities, 1+ edema. Gastrointestinal: Soft, Non-tender, Non-distended, No organomegaly. Bowel sounds: All four quadrants, Present, No bruit present. Integumentary: Warm, Dry, [place]. Scaly slightly raised lesion left cheek Psychiatric: Cooperative, Appropriate mood & affect, Normal judgment. Behavior: No pressured speech. Judgment: Able to make sensible decisions. Thought process: Appropriate. Tremor with extension in left hand. Tremor in both hands at rest when inattentive to them. Left elbow cogwheeling. Some stiffness today. Assessment/Plan Problem List Items Addressed This Visit Acquired adrenal hyperplasia (CMS/HCC) Relevant Orders Basic Metabolic Panel Cortisol AM Actinic keratosis BPH (benign prostatic hyperplasia) - Primary Relevant Medications tamsulosin (Flomax) 0.4 mg 24 hr capsule finasteride (Proscar) 5 mg tablet Other Relevant Orders Prostate Specific Antigen Cervical spondylosis without myelopathy CKD (chronic kidney disease) stage 3, GFR 30-59 ml/min (CMS/HCC) Deviated nasal septum Essential familial hyperlipidemia Relevant Medications pravastatin (Pravachol) 40 mg tablet GERD (gastroesophageal reflux disease) Headache, temporal HTN (hypertension) Relevant Orders Follow Up In Primary Care - Established Lymphedema of both lower extremities Primary osteoarthritis of right knee Rhinitis, nonallergic, chronic Symptomatic Parkinson disease (CMS/HCC) Tinnitus of both ears Other Visit Diagnoses Impaired fasting glucose Relevant Orders Basic Metabolic Panel Hemoglobin A1c PSA elevation Relevant Orders Prostate Specific Antigen Chronic cough Relevant Orders XR chest 2 views documented in this encounter [facility] Work Phone: 11-25-2022 Instructions Zoran Arceo MD - 11/25/2022 8:30 AM EDT Stop Losartan hydrochlorothiazide and monitor BP documented in this encounter [facility] Work Phone: 05-28-2022 History of Present illness Narrative Radiology Service Progress Note PATIENT NAME: Pete Odonnell DATE OF SERVICE: May 28, 2022 TIME: 2:44 PM PATIENT IDENTITY VERIFICATION COMPLETED USING TWO (2) IDENTIFIERS: Name and Date of confirmed by patient verbally. FALL SCREENING: Has the patient had 2 falls in the last year or 1 fall with injury or currently using an Ambulatory Assistive Device (Walker, Cane, Wheelchair, Crutches, etc.)? No PATIENT GENDER DATA: Male PATIENT RELEVANT IMPLANT DATA REVIEWED: Yes RADIOLOGY DEPARTMENT: General X-ray: Exam(s) Completed: Rib X-Ray: Left PERIPHERAL IV DATA: Not applicable SIGNED BY: RT Taniya(R) May 28, 2022 2:44 PM documented in this encounter [facility] 05-28-2022 History of Present illness Narrative Images from the original note were not included. Subjective HPI Nontoxic-appearing male presents urgent care chief complaint left-sided pain. Duration of symptoms 4 days. Associated symptoms left-sided rib pain. Patient states he was bending over tying his shoes 4 days ago when he felt a pop in his ribs. Did not think much of it a few days later he was throwing hay cyndi off his truck when he felt sharp pain in his side. Presents today for evaluation. Has not use any OTC pain medication. States pain is exacerbated by movement and taking a deep breath. Improved by rest. Denies any blunt trauma. Denies any shortness of breath or difficulty breathing. Denies any hemoptysis hematuria or blood in stool. Past medical history prescription medication use allergies reviewed. .Patient presents with: Pain: Pt reported working, (LT) sided pain rated 8, x4 days. PAST MEDICAL HISTORY Diagnosis Date Hypercholesteremia Hypertension Snoring PAST SURGICAL HISTORY Procedure Laterality Date COLONOSCOPY FLX DX W/COLLJ SPEC WHEN PFRMD 11/28/2016 Colonoscopy ESOPHAGOGASTRODUODENOSCOPY TRANSORAL DIAGNOSTIC 11/28/2016 EGD ALLERGIES Patient has no known allergies. MEDICATIONS losartan (COZAAR) 25 mg tablet Take 1 tablet by mouth twice daily. NIFEdipine ER (PROCARDIA XL) 30 mg 24 hr tablet Take 1 tablet by mouth once daily. (Patient taking differently: Take 60 mg by mouth once daily.) pravastatin (PRAVACHOL) 40 mg tablet Take 40 mg by mouth once daily. finasteride (PROSCAR) 5 mg tablet Take 5 mg by mouth once daily. mupirocin (BACTROBAN) 2 % ointment Apply 1 application to affected area three times daily. sildenafil citrate (VIAGRA ORAL) Take 1 tablet by mouth as needed. FAMILY HISTORY Problem Relation Age of Onset Cancer Father Social History Tobacco Use Smoking status: Never Smokeless tobacco: Never Substance Use Topics Alcohol use: No Drug use: No BP 138/78 Pulse 94 Temp 36.8 C (98.2 F) (Tympanic) Resp 18 Wt 83.1 kg (183 lb 3.2 oz) SpO2 97% BMI 27.86 kg/m Review of Systems Constitutional: Negative for chills, fever and malaise/fatigue. HENT: Negative for congestion, ear discharge, ear pain, sinus pain and sore throat. Eyes: Negative for blurred vision, pain, discharge and redness. Respiratory: Negative for cough, hemoptysis, sputum production, shortness of breath, wheezing and stridor. Cardiovascular: Negative for chest pain. Gastrointestinal: Negative for abdominal pain, diarrhea, nausea and vomiting. Musculoskeletal: Negative for myalgias. Skin: Negative for itching and rash. Neurological: Negative for dizziness and headaches. Objective Physical Exam Constitutional: General: He is not in acute distress. Appearance: He is not diaphoretic. HENT: Head: Normocephalic. Mouth/Throat: Mouth: Mucous membranes are moist. Pharynx: Oropharynx is clear. No oropharyngeal exudate or posterior oropharyngeal erythema. Eyes: Conjunctiva/sclera: Conjunctivae normal. Pupils: Pupils are equal, round, and reactive to light. Cardiovascular: Rate and Rhythm: Normal rate and regular rhythm. Heart sounds: Normal heart sounds. Pulmonary: Effort: Pulmonary effort is normal. No tachypnea, accessory muscle usage or respiratory distress. Breath sounds: Normal breath sounds. No stridor. No wheezing, rhonchi or rales. Chest: Chest wall: No tenderness. Abdominal: Palpations: Abdomen is soft. Tenderness: There is no abdominal tenderness. Musculoskeletal: Cervical back: Normal range of motion and neck supple. No rigidity or tenderness. Lymphadenopathy: Cervical: No cervical adenopathy. Skin: General: Skin is warm and dry. Comments: Pain with palpation over the 8-9 rib left side. No crepitus. No erythema. No edema. No breaks in the skin. No pain with palpation over abdominal region. Pain is reproducible with palpation and movement. Neurological: Mental Status: He is alert and oriented to person, place, and time. ASSESSMENT/PLAN: 1. Rib pain - ICD9: 786.50, ICD10: R07.81 (primary diagnosis) - XR RIBS/CHEST 3V AP RIB/OBLS/CXR LEFT 2. Closed fracture of one rib of left side, initial encounter - ICD9: 807.01, ICD10: S22.32XA IMPRESSION: Left basilar atelectasis. Fracture of the lateral left eighth rib. Fracture noted on x-ray eighth rib. This correlates with clinical examination. We discussed risk factors of rib fractures and older age. We discussed the risk of atelectasis and pneumonia. Was instructed to follow-up with PCP 1 to 2 days for reevaluation. Red flags properly which discussed. Patient was educated on supportive therapies. Patient was instructed to immediately proceed to emergency room for any new, worsening, or symptoms lasting longer than anticipated. The patient's clinical presentation is otherwise unremarkable at this time. Based on exam and clinical finding, the patient is stable for discharge. Plan of care was discussed with patient. Patient verbalizes understanding and agrees to plan of care. This note was generated using [employer] software. It may contain errors in wording, punctuation, or spelling. Tomas Ramirez [email or web address] documented in this encounter [facility] 10-24-2021 History of Present illness Narrative Injuries from horse tramping him October 24. Doing much better in the wrist, ribs, jaw.Acquired adrenal hyperplasia - normal electrolytes in May. .Actinic keratoses - left cheek lesion is still not healing. Lesion on left arm will not heal. Small scab. Has been to [facility]. Will go since bothersome.Allergic rhinitis per ENT. Also noted deviated septum. Flonase helps. Still plugged on one side. Dr Dennis saw him for this discussed surgery. But he is gone now. So will refer to Dr Lindsaygn prostatic hypertrophy - nocturia x 3-4. No daytime urgency. 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 Some pain at times and limits motion.Essential familial hyperlipidemia - Med works well without side effects. In May 2021Essential hypertension - No Chest pain, Dyspnea, palpitations, numbness, weakness, claudications, or double vision/ loss of vision. No longer has headaches. Not lightheaded. Edema in both ankles when on feet a lot. No orthopnea. Elevating legs helps. CMP WNL last time.Gastroesophageal reflux disease - Tums on occasion. No HB, Melena, or hematochezia. Will hang up in esophagus if he eats too fast or too dry.Headache when stressed but generally doing OKImpotence - Viagra not as effective at 50 so will try 100. But the ones he has are old also.Parkinsons - [place] thinks [place]. Does not affect eating writing. Left only like when holding tea. Stress and cold will worsen. No stiffness of arms.Right knee pain injured when moving equipment. Not swollen. Pain with walking medially. Has discussed injections and TKR. But Dr Spears is leavingPSA 11/24/20Colonoscopy 11/28/16 [facility] Work Phone: 09-04-2021 History of Present illness Narrative Patient is a pleasant 76-year-old male presenting today for follow up with regards to his right knee pain. Patient was previously seen in office on 09/04/2021 and was administered a corticosteroid injection to the right knee. He reports the previous injection was well tolerated and states his overall symptoms of pain and discomfort have significantly reduced. He is pleased with the continued relief and would like to delay intervention until he becomes increasingly symptomatic again. He does continue to have mild discomfort, describing his pain to fluctuate and increase with activity. He has been using OTC topical Biofreeze that he reports to be tolerating well. 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 [facility] [address] Work Phone: 08-19-2021 Chief complaint Narrative - Reported 3-4 month follow-up for re-evaluation of right knee pain (OA) as he was previously seen in office in 08/2021 in which a corticosteroid injection was administered into the right knee. He states overall symptoms of pain has significantly reduced since the injection. 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 [facility] [address] Work Phone: 07-31-2021 History of Present illness Narrative Patient is a pleasant 76-year-old male presenting today for right knee pain as referred by his PCP Dr. Katie Rojas. XR series of the right knee was performed on 07/31/2021. Patient states he has been experiencing pain of the right knee for approximately 5 months. He reports an incident where he felt a pop in the knee that was accompanied by immediate, sharp pain and swelling. He was also having trouble with walking in which he was using crutches for support with ambulation. He has continued to be quite symptomatic since this episode with his pain and swelling progressively worsening over time. He does continue to have significant swelling of the right knee, as well as swelling of the ankle and foot. He denies any previous injury and/or complaints of the knee prior to this episode 5 months ago. He was evaluated by his PCP who advised him to rest, ice the knee, compressions, prescription of Naproxen 500 mg, and a referral to orthopedics. 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 He elects to proceed today with a corticosteroid injection for the right knee, as well as aspiration of fluid. [facility] [address] Work Phone: 07-30-2021 History of Present illness Narrative Here with right knee painHas had pain x 3 months but was getting better. Thinks may be strained something while farming.Yesterday turned quickly and felt a pop. Knee has been painful and swelled since thenCurrently painful with walking and going up steps. Pain level with walking about 8-9/10.Hasn't taken anything for the pain. Hasn't used any ice or heat. [facility] Work Phone: 04-07-2021 Chief complaint Narrative - Reported NEW) Referral from PCP for further evaluation and treatment of right knee pain, x1 episode of pop with immediate pain and swelling after, difficulty walking after pop with need for crutches short term. Onset: 5 months. He denies any previous knee complaints or injuries before 5 months ago. He states PCP advised rest, icing, rx naproxen 500, compression, and referral to ortho. XR series of the right knee performed on 07/31/2021. [facility] [address] Work Phone: 12-08-2020 History of Present illness Narrative Had COVID-December 11. To ER on December 21. Since then has been really tired. Slowly getting more energy. Was short of breath but that has gotten better. No racing heart.Developed swelling in the legs over the last few weeks. Does go down some in the AM. No shortness of breath. No regression of energy.. Tends to fall asleep in a chair. Does need a breath rite strip to help breath at hs. Has had for a long time. Snores. During day only feels congested if in dust. Will need to sit up at hs. Feels that is due to the nose.CXR last week clear with no pneumonia or cardiomegalyNo ankle pain with the swelling.GFR is a bit low but similar to what it was 2 years agoProtein is a bit low at 6.3.No Chest pain, Dyspnea, palpitations, numbness, weakness, edema, claudication, or double vision/ loss of vision.Was spending a lot of the night sitting up due to nasal congestion. That is getting worse [facility] Work Phone: 09-29-2020 History of Present illness Narrative Was in a box stall with a horse trying to catch her babyPushed against a beamKnocked the wind out of him6 days agoPain right flankShort of breath as could not get deep [facility] careHad CT abdomen and Pelvis and Xray - no fracture or damage to kidneys or liverHome on ibuprofen at 600 mg with some helpNow he is still not doing wellStill hurt to sit up, deep breath, cough (so does not clear throat)No blood in urineNo bruiseStill tender in flankBMP WNL last weekNo fever or chillsNo nausea or vomiting [facility] Work Phone: 04-20-2019 History of Past i llness Narrative Problem Noted Date Resolved Date Chest pain 04/20/2019 04/20/2019 Liver cyst 12/08/2017 02/22/2018 documented as of this encounter (statuses as of 05/29/2022) [facility] Rib pain- Primary Chest pain, unspecified Closed fracture of one rib of left side, initial encounter [facility] Benign prostatic hyperplasia with nocturia- Primary Essential familial hyperlipidemia Primary hypertension Unspecified essential hypertension Impaired fasting glucose Acquired adrenal hyperplasia (CMS/HCC) PSA elevation Chronic cough Cough Actinic keratosis Cervical spondylosis without myelopathy Stage 3a chronic kidney disease (CMS/HCC) Deviated nasal septum Gastroesophageal reflux disease without esophagitis Esophageal reflux Headache, temporal Lymphedema of both lower extremities Primary osteoarthritis of right knee Rhinitis, nonallergic, chronic Chronic rhinitis Symptomatic Parkinson disease (CMS/HCC) Paralysis agitans Tinnitus of both ears Unspecified tinnitus documented in this encounter [facility] Work Phone: Evaluation note* Diagnosis Acquired adrenal hyperplasia (CMS/HCC)- Primary Primary hypertension Unspecified essential hypertension Impaired fasting glucose Actinic keratosis Benign essential hypertension Essential hypertension, benign Benign prostatic hyperplasia with nocturia Cervical spondylosis without myelopathy Deviated nasal septum Essential familial hyperlipidemia Gastroesophageal reflux disease without esophagitis Esophageal reflux Headache, temporal Mixed hyperlipidemia Primary insomnia Persistent disorder of initiating or maintaining sleep Lymphedema of both lower extremities Primary osteoarthritis of right knee Stage 3a chronic kidney disease (CMS/HCC) Symptomatic Parkinson disease Paralysis agitans Rhinitis, nonallergic, chronic Chronic rhinitis Tinnitus of both ears Unspecified tinnitus documented in this encounter [facility] Work Phone: Evaluation note* Diagnosis Hematoma- Primary Contusion of unspecified site Leg edema, left documented in this encounter [facility] Work Phone: Evaluation note* Diagnosis Hematoma Contusion of unspecified site Leg edema, left documented in this encounter [facility] Work Phone: Evaluation note* Diagnosis Routine general medical examination at health care facility- Primary Routine general medical examination at a health care facility Primary insomnia Persistent disorder of initiating or maintaining sleep Benign prostatic hyperplasia with nocturia Symptomatic Parkinson disease (Multi) Paralysis agitans Lymphedema of both lower extremities Elevated PSA Elevated prostate specific antigen (PSA) documented in this encounter [facility] Work Phone: Evaluation note* Diagnosis Parkinson's disease without dyskinesia or fluctuating manifestations (HCC)- Primary Generalized anxiety disorder Insomnia due to medical condition Insomnia due to medical condition classified elsewhere Exposure to [place] Contact with and (suspected) exposure to other potentially hazardous chemicals [facility] Parkinson's disease without dyskinesia or fluctuating manifestations (HCC)- Primary MCI (mild cognitive impairment) Mild cognitive impairment, so stated [facility] Rib pain Chest pain, unspecified [facility] Screening for genitourinary condition Screening for other and unspecified genitourinary condition [facility] Acquired adrenal hyperplasia (Multi)- Primary Immunization due Actinic keratosis Benign essential hypertension Essential hypertension, benign Benign prostatic hyperplasia with nocturia Cervical spondylosis without myelopathy Deviated nasal septum Elevated PSA Elevated prostate specific antigen (PSA) Essential familial hyperlipidemia Gastroesophageal reflux disease without esophagitis Esophageal reflux Headache, temporal Primary hypertension Unspecified essential hypertension Mixed hyperlipidemia Impaired fasting glucose Insomnia due to medical condition Organic insomnia, unspecified Liver cyst Other specified disorders of liver Primary osteoarthritis of right knee Prostate cancer (Multi) Malignant neoplasm of prostate Rhinitis, nonallergic, chronic Chronic rhinitis Symptomatic Parkinson disease (Multi) Paralysis agitans Tinnitus of both ears Unspecified tinnitus Hypercalcemia documented in this encounter [facility] Work Phone: Evaluation note* Diagnosis Prostate cancer (HCC)- Primary Malignant neoplasm of prostate [facility]* Acquired adrenal hyperplasia - normal electrolytes. * Actinic keratoses - left cheek lesion is better. No new sores. * Benign prostatic hypertrophy - nocturia once or twice a night. No daytime urgency. 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 Some painat times and limits motion. * Chronic kidney disease (CKD), stage III (moderate) - Pretty much the same. No cause identified. No blood in urine * Essential familial hyperlipidemia - Med works well without side effects. In August 2019 * Essential hypertension - No Chest pain, Dyspnea, palpitations, numbness, weakness, edema, claudications, or double vision/ loss of vision. No longer has headaches. Has been good unless upset. Not lightheaded. * Gastroesophageal reflux disease - Tums on occasion. No HB, Melena, or hematochezia. Will hang up inesophagus if he eats too fast or too dry. * Headache when stressed but generally doing OK * Steatosis of liver - normal this time. * Has a fine tremor of hand when holding phone a long time. Does not affect eating writing. Left onlylike when holding tea. Stress and cold will worsen. No stiffness of arms * PSA 11/24/20 * [facility] 11/28/16 -[facility] Work Phone: History of Present illness Narrative* The patient is being seen for the subsequent annual wellness visit. * Past Medical, Surgical and Family History: reviewed and updated in chart. * Medications and Supplements: Review of all medications by a prescribing practitioner or clinical pharmacist (such as prescriptions, OTCs, herbal therapies and supplements) documented in the medical record. * No, the patient is not using opioids. * Patient Self Assessment of Health Status: good. * Tobacco use: Non-User * Alcohol use: Non-User * Illicit drug use: Non-User * Current diet: well balanced diet, does consume adequate fluids and does consume caffeine. * Exercise Frequency: regularly. * Depression/Suicide Screening: . * During the past 2 weeks, the patient has not felt down, depressed or hopeless. * During the past 2 weeks, the patient has not felt little interest or pleasure in doing things. * Hearing Impairment: on the right. * Cognitive Impairment: No cognitive impairment observed, patient or family reported cognitive impairment . * word finding and names. * Bathing: performs independently. * Dressing: performs independently. * Walking: performs independently. * Managing Finances: performs independently. * Shopping: performs independently. * Managing Medications: performs independently. * Housework / Basic Home Maintenance: performs independently. * Falls Risk Screening:. PETE has fallen in the last 6 months. His fall did not result in injury. * Care Plan Low/Moderate Risk: Regular physical activity such as walking, water aerobics or ankit chi to improve strength, balance, coordination and flexibility. Wear appropriate, sensible shoe wear. Remove fall hazards at home such as loose rugs, obstacles, use non-slip surface in bath or shower. Keep living space well lit. (has stumbles in his barn tripping over things ) * Home safety risk factors: no grab bars in the bathroom, household clutter and no handrails on the stairs. * Advance directives:. Advanced Care Planning discussed and documented advance care plan or surrogatedecision maker documented in the medical record. Patient has living will. Patient has healthcare POA. * Patient's End of Life Decisions: End of life decisions were reviewed with the patient. I agree to follow the patient's decisions. * Additional Information: Pain level 5 in knee. * Acquired adrenal hyperplasia - normal electrolytes. * Actinic keratoses - left cheek lesion is better. Lesion on left arm will not heal. Small scab. Has been to [facility]. Will go if any bothersome or return to remove. * Allergic rhinitis per ENT. Also noted deviated septum. Flonase helps. * Benign prostatic hypertrophy - nocturia x 3-4. No daytime urgency. Will try the Flomax. 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 Some painat times and limits motion. * Chronic kidney disease (CKD), stage III (moderate) - GFR 65 this time with new formula so not an issue. No cause identified. No blood in urine * Covid 19 resolved after a few months with dyspnea and cough. * Essential familial hyperlipidemia - Med works well without side effects. In May 2021 * Essential hypertension - No Chest pain, Dyspnea, palpitations, numbness, weakness, claudications, or double vision/ loss of vision. No longer has headaches. Not lightheaded. Edema in both ankles whenon feet a lot. No orthopnea. Elevating legs helps. CMP WNL * Gastroesophageal reflux disease - Tums on occasion. No HB, Melena, or hematochezia. Will hang up inesophagus if he eats too fast or too dry. * Headache when stressed but generally doing OK * Steatosis of liver - normal this time. * Parkinsons - [facility] [place]. Does not affect eating writing. Left only like when holding tea. Stress and cold will worsen. No stiffness of arms. * Right knee pain injured when moving equipment. Not swollen. Pain with walking medially. Will tret as OA with Voltaren and if not getting better will do XRay * PSA 11/24/20 * [facility] 11/28/16 -[facility] Work Phone: History of Present illness Narrative* Trampled by a horse that he was holding. Does not know if it actually stepped on him * No LOC * Does feel it hit head * Afterwards he had pain in the back, left wrist, left calf, left rib, abdomen on left and left Jaw. * Cuts on left wrist and right hand * Did not go to ER right away but then developed constipation and bloating * Has been able to have BM yesterday. Dulcolax finally worked * Was at [facility] * Given [place]. Takes that about every 6 hours. No dispensations noted in [facility] * Has CT Abdomen, Chest Unremarkable. CBC and CMP WNL * No nausea but decreased appetite. * No blood in stools or urine or from ears or cough * A little short of breath but not pain with breathing * Pain in the flank when he coughs * No fever, chills, cough, numbness or weakness [facility] Work Phone: Reason for referral (narrative)* Diagnostic Procedure Only (Urgent) - Closed Specialty Diagnoses / Procedures Referred By Contac t Referred To Contact XR IMAGING Diagnoses Rib pain Procedures XR RIBS/CHEST 3V AP RIB/OBLS/CXR LEFT RADEX RIBS UNI W/POSTEROANT CH MINIMUM 3 VIEWS Tomas Ramirez APRN.DYLON [address] [place] [address] Xr Imaging Referral ID Status Reason Start Date Expiration Date V isits Requested Visits Authorized [id number] Closed Auto-Generate d Referral 05/28/2022 06/27/2023 1 1 [facility] for referral (narrative)* Consultation (Routine) - Authorized Specialty Diagnoses / Procedures Referred By Contac t Referred To Contact Primary Care Diagnoses Primary hypertension Acquired adrenal hyperplasia (CMS/HCC) Procedures Follow Up In Primary Care - Established Zoran Arceo MD [address] [facility], [address] [address] Referral ID Status Reason Start Date Expiration Date V isits Requested Visits Authorized [id number] Authorized 05/13/2023 05/12/2024 1 1 [facility] Work Phone: [facility] (narrative)* Diagnostic Procedure Only (Urgent) - Closed Specialty Diagnoses / Procedures Referred By Contac t Referred To Contact XR IMAGING Diagnoses Rib pain Procedures XR RIBS/CHEST 3V AP RIB/OBLS/CXR LEFT RADEX RIBS UNI W/POSTEROANT CH MINIMUM 3 VIEWS Tomas Ramirez APRN.[employer] [address] [place] [address] [place] [id number] Referral ID Status Reason Start Date Expiration Date V isits Requested Visits Authorized [id number] Closed Auto-Generate d Referral 05/28/2022 06/27/2023 1 1 [facility] for visit Narrative* Diagnostic Procedure Only (Urgent) - Closed Specialty Diagnoses / Procedures Referred By Jayla t Referred To Contact XR IMAGING Diagnoses Rib pain Procedures XR RIBS/CHEST 3V AP RIB/OBLS/CXR LEFT RADEX RIBS UNI W/POSTEROANT CH MINIMUM 3 VIEWS Tomas Ramirez APRN.[employer] [address] [place] [address] [place] [address] Referral ID Status Reason Start Date Expiration Date V isits Requested Visits Authorized [id number] Closed Auto-Generate d Referral 05/28/2022 06/27/2023 1 1 [facility] Summary Purpose Family History No Family History Records Found Father Name Dates Details Family history of malignant neoplasm(V16.9, Z80.9) Status:Active Family history of diabetes m ellitus(V18.0, Z83.3) Status:Active Family history of hypertensi on(V17.49, Z82.49) Status:Active Family history of cerebrovas cular accident (CVA)(V17.1, Z82.3) Status:Active Father Name Dates Details Family history of malignant neoplasm(V16.9, Z80.9) Status:Active Family history of diabetes m ellitus(V18.0, Z83.3) Status:Active Family history of hypertensi on(V17.49, Z82.49) Status:Active Family history of cerebrovas cular accident (CVA)(V17.1, Z82.3) Status:Active Father Name Dates Details Family history of malignant neoplasm(V16.9, Z80.9) Status:Active Family history of diabetes m ellitus(V18.0, Z83.3) Status:Active Family history of hypertensi on(V17.49, Z82.49) Status:Active Family history of cerebrovas cular accident (CVA)(V17.1, Z82.3) Status:Active Father Name Dates Details Family history of malignant neoplasm(V16.9, Z80.9) Status:Active Family history of diabetes m ellitus(V18.0, Z83.3) Status:Active Family history of hypertensi on(V17.49, Z82.49) Status:Active Family history of cerebrovas cular accident (CVA)(V17.1, Z82.3) Status:Active Father Name Dates Details Family history of malignant neoplasm(V16.9, Z80.9) Status:Active Family history of diabetes m ellitus(V18.0, Z83.3) Status:Active Family history of hypertensi on(V17.49, Z82.49) Status:Active Family history of cerebrovas cular accident (CVA)(V17.1, Z82.3) Status:Active Father Name Dates Details Family history of malignant neoplasm(V16.9, Z80.9) Status:Active Family history of diabetes m ellitus(V18.0, Z83.3) Status:Active Family history of hypertensi on(V17.49, Z82.49) Status:Active Family history of cerebrovas cular accident (CVA)(V17.1, Z82.3) Status:Active Father Name Dates Details Family history of malignant neoplasm(V16.9, Z80.9) Status:Active Family history of diabetes m ellitus(V18.0, Z83.3) Status:Active Family history of hypertensi on(V17.49, Z82.49) Status:Active Family history of cerebrovas cular accident (CVA)(V17.1, Z82.3) Status:Active Unknown Family Member Name Dates Details Family history of malignant neoplasm: Father(V16.9, Z80.9) Status:Active Family history of diabetes m ellitus: Father(V18.0, Z83.3) Status:Active Family history of hypertensi on: Father(V17.49, Z82.49) Status:Active Family history of cerebrovas cular accident (CVA): Father(V17.1, Z82.3) Status:Active Unknown Family Member Name Dates Details Family history of malignant neoplasm: Father(V16.9, Z80.9) Status:Active Family history of diabetes m ellitus: Father(V18.0, Z83.3) Status:Active Family history of hypertensi on: Father(V17.49, Z82.49) Status:Active Family history of cerebrovas cular accident (CVA): Father(V17.1, Z82.3) Status:Active Unknown Family Member Name Dates Details Family history of malignant neoplasm: Father(V16.9, Z80.9) Status:Active Family history of diabetes m ellitus: Father(V18.0, Z83.3) Status:Active Family history of hypertensi on: Father(V17.49, Z82.49) Status:Active Family history of cerebrovas cular accident (CVA): Father(V17.1, Z82.3) Status:Active Unknown Family Member Name Dates Details Family history of malignant neoplasm: Father(V16.9, Z80.9) Status:Active Family history of diabetes m ellitus: Father(V18.0, Z83.3) Status:Active Family history of hypertensi on: Father(V17.49, Z82.49) Status:Active Family history of cerebrovas cular accident (CVA): Father(V17.1, Z82.3) Status:Active Unknown Family Member Name Dates Details Family history of cerebrovas cular accident (CVA): Father(V17.1, Z82.3) Status:Active Family history of hypertensi on: Father(V17.49, Z82.49) Status:Active Family history of diabetes m ellitus: Father(V18.0, Z83.3) Status:Active Family history of malignant neoplasm: Father(V16.9, Z80.9) Status:Active Unknown Family Member Name Dates Details Family history of malignant neoplasm: Father(V16.9, Z80.9) Status:Active Family history of diabetes m ellitus: Father(V18.0, Z83.3) Status:Active Family history of hypertensi on: Father(V17.49, Z82.49) Status:Active Family history of cerebrovas cular accident (CVA): Father(V17.1, Z82.3) Status:Active Unknown Family Member Name Dates Details Family history of malignant neoplasm: Father(V16.9, Z80.9) Status:Active Family history of diabetes m ellitus: Father(V18.0, Z83.3) Status:Active Family history of hypertensi on: Father(V17.49, Z82.49) Status:Active Family history of cerebrovas cular accident (CVA): Father(V17.1, Z82.3) Status:Active Unknown Family Member Name Dates Details Family history of malignant neoplasm: Father(V16.9, Z80.9) Status:Active Family history of diabetes m ellitus: Father(V18.0, Z83.3) Status:Active Family history of hypertensi on: Father(V17.49, Z82.49) Status:Active Family history of cerebrovas cular accident (CVA): Father(V17.1, Z82.3) Status:Active Unknown Family Member Name Dates Details Family history of malignant neoplasm: Father(V16.9, Z80.9) Status:Active Family history of diabetes m ellitus: Father(V18.0, Z83.3) Status:Active Family history of hypertensi on: Father(V17.49, Z82.49) Status:Active Family history of cerebrovas cular accident (CVA): Father(V17.1, Z82.3) Status:Active Unknown Family Member Name Dates Details Family history of cerebrovas cular accident (CVA): Father(V17.1, Z82.3) Status:Active Family history of hypertensi on: Father(V17.49, Z82.49) Status:Active Family history of diabetes m ellitus: Father(V18.0, Z83.3) Status:Active Family history of malignant neoplasm: Father(V16.9, Z80.9) Status:Active Unknown Family Member Name Dates Details Family history of malignant neoplasm: Father(V16.9, Z80.9) Status:Active Family history of diabetes m ellitus: Father(V18.0, Z83.3) Status:Active Family history of hypertensi on: Father(V17.49, Z82.49) Status:Active Family history of cerebrovas cular accident (CVA): Father(V17.1, Z82.3) Status:Active Unknown Family Member Name Dates Details Family history of cerebrovas cular accident (CVA): Father(V17.1, Z82.3) Status:Active Family history of hypertensi on: Father(V17.49, Z82.49) Status:Active Family history of diabetes m ellitus: Father(V18.0, Z83.3) Status:Active Family history of malignant neoplasm: Father(V16.9, Z80.9) Status:Active Unknown Family Member Name Dates Details Family history of cerebrovas cular accident (CVA): Father(V17.1, Z82.3) Status:Active Family history of hypertensi on: Father(V17.49, Z82.49) Status:Active Family history of diabetes m ellitus: Father(V18.0, Z83.3) Status:Active Family history of malignant neoplasm: Father(V16.9, Z80.9) Status:Active Unknown Family Member Name Dates Details Family history of malignant neoplasm: Father(V16.9, Z80.9) Status:Active Family history of diabetes m ellitus: Father(V18.0, Z83.3) Status:Active Family history of hypertensi on: Father(V17.49, Z82.49) Status:Active Family history of cerebrovas cular accident (CVA): Father(V17.1, Z82.3) Status:Active Unknown Family Member Name Dates Details Family history of malignant neoplasm: Father(V16.9, Z80.9) Status:Active Family history of diabetes m ellitus: Father(V18.0, Z83.3) Status:Active Family history of hypertensi on: Father(V17.49, Z82.49) Status:Active Family history of cerebrovas cular accident (CVA): Father(V17.1, Z82.3) Status:Active Unknown Family Member Name Dates Details Family history of malignant neoplasm: Father(V16.9, Z80.9) Status:Active Family history of diabetes m ellitus: Father(V18.0, Z83.3) Status:Active Family history of hypertensi on: Father(V17.49, Z82.49) Status:Active Family history of cerebrovas cular accident (CVA): Father(V17.1, Z82.3) Status:Active Unknown Family Member Name Dates Details Family history of malignant neoplasm: Father(V16.9, Z80.9) Status:Active Family history of diabetes m ellitus: Father(V18.0, Z83.3) Status:Active Family history of hypertensi on: Father(V17.49, Z82.49) Status:Active Family history of cerebrovas cular accident (CVA): Father(V17.1, Z82.3) Status:Active Unknown Family Member Name Dates Details Family history of malignant neoplasm: Father(V16.9, Z80.9) Status:Active Family history of diabetes m ellitus: Father(V18.0, Z83.3) Status:Active Family history of hypertensi on: Father(V17.49, Z82.49) Status:Active Family history of cerebrovas cular accident (CVA): Father(V17.1, Z82.3) Status:Active Unknown Family Member Name Dates Details Family history of malignant neoplasm: Father(V16.9, Z80.9) Status:Active Family history of diabetes m ellitus: Father(V18.0, Z83.3) Status:Active Family history of hypertensi on: Father(V17.49, Z82.49) Status:Active Family history of cerebrovas cular accident (CVA): Father(V17.1, Z82.3) Status:Active Unknown Family Member Name Dates Details Family history of malignant neoplasm: Father(V16.9, Z80.9) Status:Active Family history of diabetes m ellitus: Father(V18.0, Z83.3) Status:Active Family history of hypertensi on: Father(V17.49, Z82.49) Status:Active Family history of cerebrovas cular accident (CVA): Father(V17.1, Z82.3) Status:Active Unknown Family Member Name Dates Details Family history of malignant neoplasm: Father(V16.9, Z80.9) Status:Active Family history of diabetes m ellitus: Father(V18.0, Z83.3) Status:Active Family history of hypertensi on: Father(V17.49, Z82.49) Status:Active Family history of cerebrovas cular accident (CVA): Father(V17.1, Z82.3) Status:Active Unknown Family Member Name Dates Details Family history of malignant neoplasm: Father(V16.9, Z80.9) Status:Active Family history of diabetes m ellitus: Father(V18.0, Z83.3) Status:Active Family history of hypertensi on: Father(V17.49, Z82.49) Status:Active Family history of cerebrovas cular accident (CVA): Father(V17.1, Z82.3) Status:Active Unknown Family Member Name Dates Details Family history of malignant neoplasm: Father(V16.9, Z80.9) Status:Active Family history of diabetes m ellitus: Father(V18.0, Z83.3) Status:Active Family history of hypertensi on: Father(V17.49, Z82.49) Status:Active Family history of cerebrovas cular accident (CVA): Father(V17.1, Z82.3) Status:Active Unknown Family Member Name Dates Details Family history of malignant neoplasm: Father(V16.9, Z80.9) Status:Active Family history of diabetes m ellitus: Father(V18.0, Z83.3) Status:Active Family history of hypertensi on: Father(V17.49, Z82.49) Status:Active Family history of cerebrovas cular accident (CVA): Father(V17.1, Z82.3) Status:Active Advance Directives No Advanced Directives Records FoundDocuments on File Type Date Recorded Patient 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 Expl anation Healthcare Power of Atty 11/11/2023 [facility] 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 Patients with a score of 40 or above are considered highest risk for readmission. Specific patient level drivers will be listed at the bottom of the summary. Admission Information Admission Information ADMIT DATE: 04/20/2019 DISCHARGE DATE: 04/20/2019 MY DOCTORS AND MEDICAL TEAM: My Main Hospital Doctor: Falguni Vergara Primary Care Provider: Zoran Arceo MD My Medical Team Members: Treatment Team: Attending Provider: Joan Morejon Primary Service: [place] [employer] Admit/Consults MY CONDITION AT DISCHAR (more content not included)... Chief Complaint slammed in wall by horsemedckedemamedck and AWVRight knee pain - yesterday turned wrong.Trampled by horse 5 days agomedck* Pt here for nurse visit flu shot * Fluzone HD 0.7ml given IM Left Deltoid * Pt. tolerated well * Lot [id number] * Exp 10/18/22 * [facility] * [phone] Reason for Referral Specialty Diagnoses / Procedures Referred By Contac t Referred To Contact Radiology Diagnoses Chronic cough Procedures XR chest 2 views Zoran Arceo MD [address] [facility], [place] [address] Referral ID Status Reason Start Date Expiration Date Visits Requested Visits Authorized [id number] Authorized Perform Procedure 11/25/2022 05/24/2023 1 1 Specialty Diagnoses / Procedures Referred By Contac t Referred To Contact Primary Care Diagnoses Primary hypertension Procedures Follow Up In Primary Care - Established Zoran Arceo MD [address] [facility], [facility] [address] [id number] Referral ID Status Reason Start Date Expiration Date V isits Requested Visits Authorized [id number] Authorized 11/25/2022 05/24/2023 1 1 Specialty Diagnoses / Procedures Referred By Contac t Referred To Contact Cardiology Diagnoses Hematoma Leg edema, left Procedures Lower extremity venous duplex left Zoran Arceo MD [address] [facility], [facility] [address] [place] [address] Referral ID Status Reason Start Date Expiration Date Visits Requested Visits Authorized [id number] Pending Review Perform Procedure 08/21/2023 08/20/2024 1 1 Specialty Diagnoses / Procedures Referred By Contac t Referred To Contact Diagnoses Parkinson's disease without dyskinesia or fluctuating manifestations (HCC) Procedures PROVIDER ORDERED FOLLOW UP OFFICE/OUTPATIENT [facility] 60 MINUTES Trent Degroot MD [address] [place] [address] Referral ID Status Reason Start Date Expiration Date Visits Requested Visits Authorized [id number] Authorized PCP Requested Referral 12/25/2023 03/24/2024 1 1 Specialty Diagnoses / Procedures Referred By Contac t Referred To Contact [facility] Diagnoses Parkinson's disease without dyskinesia or fluctuating manifestations (HCC) Procedures CONSULT TO PHYSICAL THERAPY PHYSICAL THERAPY EVALUATION HIGH COMPLEX 45 MINS Trent Degroot MD [address] [place] [address] [facility] [address] [address] Referral ID Status Reason Start Date Expiration Date Visits Requested Visits Authorized [id number] Pending Review Auto-Generat ed Referral 12/25/2023 12/24/2024 1 1 Additional Source Comments (unrecognized sect ion and content) No Status Records FoundNo Status Records FoundNo Status Records FoundNo Status Records FoundNo Status Records FoundNo Status Records FoundNo Status Records FoundNo Status Records FoundNo Status Records FoundNo Status Records FoundNo Status Records Found INFORMATION SOURCE (unrecogn ized section and content) DATE CREATED AUTHOR 12/01/2018 [facility] DATE CREATED AUTHOR AUTHOR'S ORGANIZ ATION 04/22/2019 [facility] DATE CREATED AUTHOR AUTHOR'S ORGANIZ ATION 04/25/2019 [facility] DATE CREATED AUTHOR AUTHOR'S ORGANIZ ATION 04/28/2019 [facility] DATE CREATED AUTHOR AUTHOR'S ORGANIZ ATION 05/31/2022 [facility] DATE CREATED AUTHOR AUTHOR'S ORGANIZ ATION 05/31/2022 [facility] DATE CREATED AUTHOR AUTHOR'S ORGANIZ ATION 11/28/2022 [facility] DATE CREATED AUTHOR AUTHOR'S ORGANIZ ATION 08/28/2023 [facility] DATE CREATED AUTHOR AUTHOR'S ORGANIZ ATION 02/12/2024 [facility] DATE CREATED AUTHOR AUTHOR'S ORGANIZ ATION 02/12/2024 [facility] DATE CREATED AUTHOR AUTHOR'S ORGANIZ ATION 02/15/2024 [facility] <item> Privacy Markings (unrecogniz ed section and content) Section Author: Roselyn Navas PROHIBITION ON REDISCLOSURE OF CONFIDENTIAL INFORMATION This notice accompanies a disclosure of information concerning a client made to you with the consent of such client. Source Comments (unrecognize d section and content) In the event this informatio n is protected by the Federal Confidentiality of Alcohol and Drug Abuse Patient Records regulations: The Federal rules restrict any use of the information to criminally investigate or prosecute any alcohol or drug abuse patient.[facility] the event this information is protected by the Federal Confidentiality of Alcohol and Drug Abuse Patient Records regulations: The Federal rules restrict any use of the information to criminally investigate or prosecute any alcohol or drug abuse patient.[facility] Center[facility] the event this information is protected by the Federal Confidentiality of Alcohol and Drug Abuse Patient Records regulations: The Federal rules restrict any use of the information to criminally investigate or prosecute any alcohol or drug abuse patient.[facility] Center[facility] the event this information is protected by the Federal Confidentiality of Alcohol and Drug Abuse Patient Records regulations: The Federal rules restrict any use of the information to criminally investigate or prosecute any alcohol or drug abuse patient.[facility] Center[facility] the event this information is protected by the Federal Confidentiality of Alcohol and Drug Abuse Patient Records regulations: The Federal rules restrict any use of the information to criminally investigate or prosecute any alcohol or drug abuse patient.[facility] Center[facility] the event this information is protected by the Federal Confidentiality of Alcohol and Drug Abuse Patient Records regulations: The Federal rules restrict any use of the information to criminally investigate or prosecute any alcohol or drug abuse patient.[facility] Center[facility] the event this information is protected by the Federal Confidentiality of Alcohol and Drug Abuse Patient Records regulations: The Federal rules restrict any use of the information to criminally investigate or prosecute any alcohol or drug abuse patient.[facility] Reason for Visit (unrecogniz ed section and content) Reason Comments Pain Pt reported working, (LT) sided pain rated 8, x4 days. Reason Comments Med Management Reason Comments Med Management Specialty Diagnoses / Procedures Referred By Jayla t Referred To Contact Primary Care Diagnoses Primary hypertension Impaired fasting glucose Procedures Follow Up In Primary Care - Established Zoran Arceo MD [address] [facility], [facility] [address] [phone] Referral ID Status Reason Start Date Expiration Date V isits Requested Visits Authorized [id number] Authorized 02/10/2023 02/10/2024 1 1 Reason Comments evaluate Bilateral swelling i n feet, left leg and foot bruised Specialty Diagnoses / Procedures Referred By Contac t Referred To Contact Cardiology Diagnoses Hematoma Leg edema, left Procedures Lower extremity venous duplex left Zoran Arceo MD [address] [facility], [place] [address] [place] [address] Referral ID Status Reason Start Date Expiration Date Visits Requested Visits Authorized [id number] Pending Review Perform Procedure 08/21/2023 08/20/2024 1 1 Reason Comments Medicare Annual Wellness Visit Subsequen t Reason Comments New Patient Evaluation Parkinson's Disease Reason Comments Parkinson's Disease Specialty Diagnoses / Procedures Referred By Contac t Referred To Contact Primary Care Procedures Follow Up In Primary Care - Established Zoran Arceo MD [address] [facility], [place] [address] [place] [address] Phone: tel: fax: Referral ID Status Reason Start Date Expiration Date V isits Requested Visits Authorized [id number] Authorized 11/11/2023 11/10/2024 1 1 Reason Comments Consult Specialty Diagnoses / Procedures Referred By Contac t Referred To Contact Radiation Oncology Diagnoses Prostate cancer (HCC) Procedures RAD/ONC CONSULT OFFICE/OUTPAT[facility] 60 MINUTES Denver Coh MD [address] [facility] [address] [place] [address] Referral ID Status Reason Start Date Expiration Date V isits Requested Visits Authorized [id number] Closed PCP Requested Referral 01/23/2024 01/22/2025 1 1 Care Teams (unrecognized sec tion and content) Artificial Inseminator Relationship Specialty Start Date End Date Zoran Arceo MD PCP - General Family Medicine 11/14/16 Artificial Inseminator Relationship Specialty Start Date End Date Zoran Acreo MD [address] [facility], [place] [address] [place] [phone] PCP - General 12/12/16 Zoran Arceo MD [address] [facility], [facility] [address] [phone] PCP - [employer] PCP 04/21/21 Artificial Inseminator Relationship Specialty Start Date End Date Zoran Arceo MD [address] [facility], [place] [address] [place] [address] PCP - General 12/12/16 Zoran Arceo MD [address] [facility], [place] [address] [place] [address] PCP - [employer] Medicare Advantage PCP 04/21/21 Artificial Inseminator Relationship Specialty Start Date End Date Zoran Arceo MD [address] [facility], [place] [address] [place] [address] PCP - General 12/12/16 Zoran Arceo MD [address] [facility], [place] [address] [place] [address] PCP - [employer] Medicare [employer]vantage PCP 04/21/21 Artificial Inseminator Relationship Specialty Start Date End Date Zoran Arceo MD [address] [facility], [place] [address] [place] [address] PCP - General 12/12/16 Zoran Arceo MD [address] [facility], [place] [address] [place] [address] PCP - [employer]age PCP 04/21/21 Artificial Inseminator Relationship Specialty Start Date End Date Zoran Arceo MD [address] [facility], [place] [address] [place] [address] PCP - General 12/12/16 Zoran Arceo MD [address] [facility], [place] [address] [place] [address] PCP - [employer]age PCP 04/21/21 Artificial Inseminator Relationship Specialty Start Date End Date Zoran Arceo MD PCP - General Family Medicine 11/14/16 Artificial Inseminator Relationship Specialty Start Date End Date Zoran Arceo MD PCP - General Family Medicine 11/14/16 Artificial Inseminator Relationship Specialty Start Date End Date Zoran Arceo MD PCP - General Family Medicine 11/14/16 Artificial Inseminator Relationship Specialty Start Date End Date Zoran Arceo MD PCP - General Family Medicine 11/14/16 Artificial Inseminator Relationship Specialty Start Date End Date Zoran Arceo MD PCP - General Family Medicine 11/14/16 Artificial Inseminator Relationship Specialty Start Date End Date Zoran Arceo MD [address] [facility], [facility] [address] [place] [address] PCP - General 12/12/16 Zoran Arceo MD [address] [facility], [facility] [address] [place] [address] PCP - [employer]age PCP 04/21/21 Artificial Inseminator Relationship Specialty Start Date End Date Zoran Arceo MD PCP - General Family Medicine 11/14/16 FOR RECORDS PERTAINING TO PATIENTS WHO ARE OR HAVE BEEN ENROLLED IN A CHEMICAL DEPENDENCY/SUBSTANCEABUSE PROGRAM, SOME INFORMATION MAY BE OMITTED. This clinical summary was aggregated from multiple sources. Caution should be exercised in using it in the provision of clinical care. This summary normalizes information from multiple sources, and as a consequence, information in this document may materially change the coding, format and clinical context of patient data. In addition, data may be omitted in some cases. CLINICAL DECISIONS SHOULD BE BASED ON THE PRIMARY CLINICAL RECORDS. [facility]. provides no warranty or guarantee of the accuracy or completeness of information in this document.
[2024-02-16 08:59] LABS: CREATININE FINGERSTICK 1.2 mg/dL (0.70-1.30)
== END | disposition home or self-care (01) ==
PROVIDERS: PCP Family Medicine; Referring Provider Student in an Organized Health Care Education/Training Program; Visit Provider Student in an Organized Health Care Education/Training Program
DX: C61 Malignant neoplasm of prostate (principal)
CPT/HCPCS: 72197; A9575